=== PATIENT | female | born 1965 | race Two or more races ===

== ENCOUNTER → 2022-11-14 12:24 | Outpatient (BNVA) | payer OTHER, SELFPAY | PROVIDERS: PCP Nurse Practitioner Family; Visit Provider Physician Assistant Surgical | DX: Z13.89 Encounter for screening for other disorder (principal) ==

== ENCOUNTER → 2022-11-22 13:41 | Outpatient (BNVA) | payer OTHER, SELFPAY | PROVIDERS: PCP Nurse Practitioner Family; Visit Provider Physician Assistant | DX: Z01.818 Encounter for other preprocedural examination (principal); E66.01 Morbid (severe) obesity due to excess calories; E78.5 Hyperlipidemia, unspecified; K44.9 Diaphragmatic hernia without obstruction or gangrene; G43.909 Migraine, unspecified, not intractable, without status migrainosus; I10 Essential (primary) hypertension; R73.03 Prediabetes; J45.909 Unspecified asthma, uncomplicated; G47.33 Obstructive sleep apnea (adult) (pediatric); M79.7 Fibromyalgia; F32.A Depression, unspecified; Z99.89 Dependence on other enabling machines and devices; Z68.43 Body mass index [BMI] 50.0-59.9, adult | CPT/HCPCS: 99202 ==

== ENCOUNTER → 2022-11-26 12:50 | Outpatient (BNVA) | payer OTHER, SELFPAY | PROVIDERS: PCP Nurse Practitioner Family; Visit Provider Dietitian, Registered | DX: Z13.89 Encounter for screening for other disorder (principal) ==

== ENCOUNTER → 2022-12-03 12:52 | Outpatient (BNVA) | payer OTHER, SELFPAY | PROVIDERS: PCP Nurse Practitioner Family; Visit Provider Dietitian, Registered | DX: Z13.89 Encounter for screening for other disorder (principal) ==

== ENCOUNTER 2022-12-07 10:20 | Outpatient (REF) | payer OTHER, SELFPAY ==
--- NOTE | ~2022-12-07 | XR_ITS ---
EXAMINATION: XR CHEST CLINICAL INFORMATION: Morbid obesity COMPARISON: 07/11/2014 TECHNIQUE: 2 views of the chest were obtained. FINDINGS: No significant abnormality is noted involving the heart, lungs, mediastinum, bony thorax or soft tissues. XR/XR chest 2V IMPRESSION: Unremarkable examination.
--- NOTE | 2022-12-07 10:27 | ECG_ITS ---
Test Reason : e66.01 Blood Pressure : / mmHG Vent. Rate : 071 BPM Atrial Rate : 071 BPM P-R Int : 174 ms QRS Dur : 094 ms QT Int : 376 ms P-R-T Axes : 033 -01 -37 degrees QTc Int : 408 ms Normal sinus rhythm Inferior infarct , age undetermined Abnormal ECG When compared with ECG of 11-JUL-2014 14:11, No significant change was found Referred By: Krystyna Capellan Electronically Signed By:GISELL OLSON MD
[2022-12-07 10:52] LABS: MANUAL DIFF FLAG NO
[2022-12-07 11:50] LABS: Basophils Percent Auto 0.3 % (0-2); Eosinophils Percent Auto 0.1 % (0-4); Hematocrit 37.4 % (37.0-47.0); Hemoglobin 11.8 g/dl (12.0-16.0); Imm Gran Abs Auto 0.03 X10*3/uL (0.00-0.03); Imm Gran Pct Auto 0.3 % (0.0-0.4); Lymphocytes Absolute Auto 1.5 X10*3/uL (1.2-4.9); Lymphocytes Percent Auto 16.5 % (20-40); Mean Corpuscular HGB Conc 31.6 g/dl (31.0-35.0); Mean Corpuscular Hemoglobin 23.6 pg (27.0-33.0); Mean Corpuscular Volume 74.7 fL (80.0-98.0); Mean Platelet Volume 11.4 fL (9.4-12.3); Monocytes Absolute Auto 0.5 X10*3/uL (0.1-1.2); Monocytes Percent Auto 5.6 % (2-11); Neutrophils Absolute Auto 6.9 x10*3/uL (2.0-8.3); Neutrophils Percent Auto 77.2 % (45-73); Platelet Count 286 X10*3/uL (160-400); Red Blood Count 5.01 X10*6/uL (4.20-5.50); Red Cell Distribution Width 15.1 % (11.0-16.0); White Blood Count 8.9 X10*3/uL (4.8-10.8)
[2022-12-07 12:05] LABS: Alanine Aminotransferase 11 U/L (0-31); Albumin Level 4.3 g/dL (3.5-5.0); Alkaline Phosphatase 65 U/L (39-117); Anion Gap 16 (12-20); Aspartate Amino Transferase 16 U/L (5-31); Bilirubin Total 0.5 mg/dL (0.0-1.0); Blood Urea Nitrogen 14 mg/dL (9-16); Calcium 9.7 mg/dL (8.4-10.2); Carbon Dioxide 22 mmol/L (22-29); Chloride 104 mmol/L (96-108); Cholesterol 143 mg/dL; Estimated Glomerular Filt Rate > 60; Glucose Random 97 mg/dL (60-115); HDL Cholesterol 55 mg/dL; Iron 54 mcg/dL (30-160); LDL Cholesterol Calculated 73 mg/dl; Percent Iron Saturation 16 % (15-50); Sodium 138 mmol/L (135-145); Total Iron Binding Capacity 348 mcg/dL (228-428); Total Protein 7.8 g/dL (6.5-8.0); Triglycerides 76 mg/dL; Unsaturated Iron Binding 294 ug/dL
[2022-12-07 12:19] LABS: Estimated Average Glucose 123 mg/dL; Hemoglobin A1c % 5.9 %
[2022-12-07 12:42] LABS: Ferritin 76 ng/mL (10-250); Folate 17.5 ng/mL (> or = 4.0); Insulin 13 uU/mL (2-29); TSH reflex Free T4 0.44 uIU/mL (0.32-4.0); Vitamin B12 837 pg/mL (200-900); Vitamin D 25-OH Total 27.7 ng/mL (>30)
[2022-12-10 13:14] LABS: Calcium (PTHI) 9.9 mg/dL (8.6-10.4); PTHI 40 pg/mL (16-77)
[2022-12-11 21:14] LABS: Zinc 91 mcg/dL (60-130)
[2022-12-13 00:44] LABS: Vitamin A 30 mcg/dL (38-98)
[2022-12-14 16:42] LABS: Vitamin B1 <6 nmol/L (8-30)
== END 2022-12-07 10:21 | disposition home or self-care (01) ==
LOC: HO.XRAY 10:20
PROVIDERS: PCP Internal Medicine; Visit Provider Physician Assistant
DX: Z01.818 Encounter for other preprocedural examination (principal); E66.01 Morbid (severe) obesity due to excess calories; I10 Essential (primary) hypertension; K44.9 Diaphragmatic hernia without obstruction or gangrene; R73.03 Prediabetes
CPT/HCPCS: 36415; 71046; 80053; 80061; 82306; 82607; 82728; 82746; 83036; 83525; 83540; 83970; 84425; 84443; 84590; 84630; 85025; 86140; 93005

== ENCOUNTER → 2022-12-10 12:46 | Outpatient (BNVA) | payer OTHER, SELFPAY | PROVIDERS: PCP Internal Medicine; Visit Provider Dietitian, Registered | DX: Z13.89 Encounter for screening for other disorder (principal) ==

== ENCOUNTER 2022-12-13 14:52 | Outpatient (REF) | payer OTHER, SELFPAY ==
[2022-12-16 13:33] LABS: H Pylori Breath Test Positive (Negative)
== END 2022-12-13 14:53 | disposition home or self-care (01) ==
LOC: CF 14:52
PROVIDERS: PCP Internal Medicine; Visit Provider Physician Assistant
DX: Z01.818 Encounter for other preprocedural examination (principal); R94.31 Abnormal electrocardiogram [ECG] [EKG]; E66.01 Morbid (severe) obesity due to excess calories; R73.03 Prediabetes; I10 Essential (primary) hypertension; K44.9 Diaphragmatic hernia without obstruction or gangrene; Z71.3 Dietary counseling and surveillance
CPT/HCPCS: 36415; 83013; 99211; 99212

== ENCOUNTER → 2022-12-25 09:59 | Outpatient (REF) | payer OTHER, SELFPAY ==
--- NOTE | 2022-12-25 10:01 | CA_ITS ---
Transthoracic Echocardiogram Patient (Last, First, Middle): Loni Bahena, Gender: Female Date of : 1965 Age: 57 Procedure Date: 12/25/2022 Procedure Type: Transthoracic Echocardiogram Location: OP Height: 162.56 cm Weight: 136.08 kg BSA: 2.32 m2 Heart Rate: 63 bpm BP: 143 / 67 mmHg Supervisor Pre Wave: JOSE Referring MD: Krystyna Capellan PA-C Housekeeper: Yemi Grider MD Symptoms: R94.31 - Abnormal electrocardiogram [ECG] [EKG] Study Quality: Adequate contrast ECG Rhythm: Sinus Conclusions: - 1. Normal LV systolic function with impaired relaxation filling pattern 2. Limited visualization cardiac well with normal cardiac valvular Doppler 3. No gross pericardial effusion Findings Procedure Information Contrast agent, definity, is being given per protocol without apparent complications. Left Ventricle Normal left ventricular size, thickness, and systolic function. The visually estimated ejection fraction is between 65-70%. Spectral Doppler is indicative of an impaired relaxation filling pattern. E/E prime ratio is between 8 and 15 consistent with indeterminate filling pressures. Right Ventricle Normal right ventricular cavity size and systolic function. Atria The left atrium is normal in size. Interatrial shunt cannot be excluded. The right atrium was not well visualized. Aortic Valve The aortic valve was not well visualized. There is no aortic valve stenosis. There is no aortic valve regurgitation. Mitral Valve Likely normal mitral valve structure and function. There is trace mitral valve regurgitation. There is no mitral valve stenosis. Pulmonic Valve The pulmonic valve was not well visualized. Tricuspid Valve The tricuspid valve was not well visualized. Tricuspid regurgitation envelope is inadequate for calculation of right ventricular systolic pressure. Great Vessels The aorta was not well visualized. The pulmonary artery was not well visualized. Venous The inferior vena cava was not well visualized. Pericardium/Pleural There is no evidence of pericardial effusion. Prior Study Comparison No prior study available for comparison. Measurements 2D Linear Measurements IVSd: 0.95 0.6-0.9/0.6-1.0 cm LVIDd: 5.00 3.9-5.3/4.2-5.9 cm LVIDd Index: 2.16 2.4-3.2/2.2-3.1 cm/m2 LVIDs: 3.64 2.0-3.6 cm LVPWd: 1.06 0.7-1.1 cm LA Diam: 3.00 2.7-3.8/3.0-4.0 cm LAIDs Index: 1.29 1.5-2.3 cm/m2 LV Mass: 227.94 67-162/88-224 g LV Mass Index: 98.25 43-95/49-115 g/m2 LVOT Diam: 2.10 3.0+(-)1.3 cm 2D Systolic Function EF 4C: 68.40 >55% EF 2C: 69.50 >55% EF BiP: 68.30 >55% Mitral Valve MV Pk E: 1.06 MV PK A: 1.03 MV Decel Time: 260.00 E/A: 1.00 E'Lateral: 8.38 E'Medial: 8.16 E/E' Med: 13.00 E/E' Lat: 12.60 PHT: 76.00 MVA PHT: 2.89 Decel [place]: 4.07 Aortic Valve AoV Pk Ronaldo: 1.51 AoV Pk Grad: 9.00 CHRISTIE: 2.28 LVOT LVOT Pk Ronaldo: 1.05 LVOT Mn Ronaldo: 0.70 LVOT VTI: 0.21 LVOT Pk Grad: 4.00 LVOT Mn Grad: 2.00 LVOT Diam: 2.10 LVOT Area: 3.46 Diastolic Function MV Pk E: 1.06 MV Pk A: 1.03 E/A: 1.00 E'Medial: 8.16 E/E' Med: 13.00 E' Laterial: 8.38 E/E' Lat: 12.60 Right Ventricle TAPSE (mm): 20.90 TVS' Ronaldo: 16.40 Great Vessels Aorta Sinus of Valsalva: 3.00 2.0-3.5 cm Ao Asc: 2.90 2.1-3.4 cm Pulmonary Valve PV Pk Ronaldo: 1.15 Peak PV Grad: 5.00 Updated in Other Vendor System with Status of Final Yemi Grider MD electronically signed on 12/27/2022 8:44:53 AM with status of Final
== END ==
LOC: HO.CARD 09:59
PROVIDERS: PCP Internal Medicine; Visit Provider Physician Assistant
DX: Z01.818 Encounter for other preprocedural examination (principal); R06.02 Shortness of breath; R94.31 Abnormal electrocardiogram [ECG] [EKG]
CPT/HCPCS: 93306; Q9957

== ENCOUNTER → 2022-12-26 12:46 | Outpatient (BNVA) | payer OTHER, SELFPAY | PROVIDERS: PCP Internal Medicine; Visit Provider Dietitian, Registered | DX: E66.01 Morbid (severe) obesity due to excess calories (principal); Z68.42 Body mass index [BMI] 45.0-49.9, adult | CPT/HCPCS: 97802 ==

== ENCOUNTER → 2023-01-03 09:52 | Outpatient (BNVA) | payer OTHER, SELFPAY | PROVIDERS: PCP Internal Medicine; Visit Provider Physician Assistant | DX: E66.01 Morbid (severe) obesity due to excess calories (principal); R49.8 Other voice and resonance disorders; Z68.42 Body mass index [BMI] 45.0-49.9, adult | CPT/HCPCS: 99212 ==

== ENCOUNTER 2023-01-16 08:37 | Outpatient (REF) | payer OTHER, SELFPAY ==
--- NOTE | ~2023-01-16 | US_ITS ---
EXAMINATION: US COMPLETE ABDOMEN WITH LIVER ELASTOGRAPHY CLINICAL INFORMATION: Morbid obesity. COMPARISON: None available. TECHNIQUE: Real-time imaging of the abdominal viscera. Noninvasive ultrasound liver fibrosis assessment is performed using Teo ElastPQ point quantification shear wave elastography (2D-SWE) with a C5-2 MHz transducer. Multiple elastography samples are obtained. FINDINGS: PANCREAS: Limited. The visualized pancreatic head and body are normal in appearance. The remainder of the pancreas is obscured from visualization by the overlying bowel gas. ABDOMINAL AORTA: The visualized proximal and middle segments are normal in caliber. Imaging of the distal segment is limited due to overlapping bowel gas. INFERIOR VENA CAVA: Visualized portions are normal. LIVER: The liver demonstrates normal size, contour and increased echogenicity. No focal lesion or intrahepatic biliary duct dilatation. The right lobe measures 15.1 cm in length. The left lobe measures 12.1 cm in length. Portal flow is towards the liver (hepatopetal). Shear wave liver elastography median stiffness is 1.25 m/s (reference: normal median stiffness is 1.3 m/s or less). IQR/median stiffness to assess sampling precision is 0.13 (reference: good quality data set is IQR/median stiffness of 0.15 or less). GALLBLADDER: Surgically absent. COMMON BILE DUCT: Normal in caliber measuring 0.7 cm in diameter. RIGHT KIDNEY: There is a hypertrophic column of Zane. No hydronephrosis. No renal calculi or focal parenchymal lesions. The kidney measures 10.9 cm in maximum dimension. LEFT KIDNEY: Normal. No hydronephrosis. No renal calculi or focal parenchymal lesions. The kidney measures 11.5 cm in maximum dimension. SPLEEN: Normal. The spleen measures 9.4 cm in maximum dimension. FREE FLUID: None. US/US abdomen comp w elastography IMPRESSION: 1. There is generalized increase in hepatic echotexture, consistent with fatty infiltration or hepatocellular disease. Please correlate clinically. No focal hepatic mass or intrahepatic biliary dilatation is seen. 2. Liver elastography: Measurements are consistent with a high probability of normal liver stiffness. 3. Imaging, in particular of the pancreas and abdominal aorta, is technically limited. REFERENCE: Society of Radiologists in Ultrasound Liver Stiffness Thresholds (2020): LIVER STIFFNESS THRESHOLDS: *Liver Stiffness equal or less than 1.3 m/s: High probability of being normal. *Liver Stiffness less than 1.7 m/s: In the absence of other known clinical signs, rules out compensated advanced chronic liver disease. *Liver Stiffness 1.7-2.1 m/s: Suggestive of compensated advanced chronic liver disease but need further test for confirmation. *Liver Stiffness over 2.1 m/s: Rules in compensated advanced chronic liver disease. *Liver Stiffness over 2.4 m/s: Suggestive of clinically significant portal hypertension. QUALITY OF DATA SET: *IQR/Median value equal or less than 0.15 implies a quality data set. *IQR/Median value over 0.15 implies a poor quality data set. SIGNIFICANT CHANGE FROM PRIOR EXAM: Significant change if liver stiffness measurement is 10% or greater from prior exam. OTHER CONSIDERATIONS: The stage of liver fibrosis may be overestimated in the setting of acute hepatitis, liver inflammation, elevated liver function tests, hepatic vascular congestion, obstructive cholestasis, non-fasting state, and infiltrative diseases such as amyloidosis and lymphoma. In some patients with NAFLD, the liver stiffness thresholds for compensated advanced chronic liver disease may be lower. In causes other than viral hepatitis and NAFLD, liver stiffness thresholds are not well established.
--- NOTE | ~2023-01-16 | FL_ITS ---
EXAMINATION: XR FLUOROSCOPY UPPER GI WITH AIR CLINICAL INFORMATION: Morbid obesity. COMPARISON: None available. TECHNIQUE: Upper GI examination including use of thin and thick barium and half-inch diameter barium tablet. FINDINGS: There is normal apposition of the focal cords while saying E. There is normal elevation of the soft palate saying candy. Patient swallowed half-inch diameter barium tablet without difficulty. Patient was unable to retain gas from the effervescent crystals. No esophageal stricture was identified. No mucosal abnormality is seen. There is normal motility present. There is a small sliding hiatal hernia present. There was mild gastroesophageal reflux elicited with water siphon test within the distal third of the esophagus which cleared rapidly. The stomach demonstrates normal distensibility. No abnormal mass or ulceration identified. There was no delay in gastric emptying. The duodenal bulb and sweep appeared unremarkable. FLUOROSCOPY TIME: 1.8 minutes. NUMBER OF IMAGES: 25 images. 27.824 Gy-cm2 (velazco-centimeter squared). FL/FL upper GI w air IMPRESSION: Mild gastroesophageal reflux. Small sliding hiatal hernia.
== END 2023-01-16 08:38 | disposition home or self-care (01) ==
LOC: HO.US 08:37
PROVIDERS: PCP Internal Medicine; Visit Provider Physician Assistant
DX: Z01.818 Encounter for other preprocedural examination (principal); E66.01 Morbid (severe) obesity due to excess calories; I10 Essential (primary) hypertension; K44.9 Diaphragmatic hernia without obstruction or gangrene; R73.03 Prediabetes
CPT/HCPCS: 74246; 76705; 76981

== ENCOUNTER → 2023-01-21 09:39 | Outpatient (REF) | payer OTHER, SELFPAY ==
--- NOTE | ~2023-01-21 | NM_ITS ---
Myocardial perfusion study Indication: Abnormal EKG to evaluate for myocardial ischemia Technique: The patient was brought in for a Lexiscan perfusion study on 01/21/2023. Patient performed low-level exercise and was injected 0.4 mg of Lexiscan intravenously. Within a minute of injection, 30 mCi of sestamibi was given intravenously. Images were obtained using the SPECT gamma camera interlaced with the gating device. Images were obtained in supine position. Resting perfusion study was performed on 01/23/2023. Patient was administered 30 mCi of sestamibi intravenously at rest. Images were then obtained in supine position. Images obtained with and without CT attenuation. Total DLP 163 mGy-cm. Images were processed with the software and compared side to side in short axis, horizontal long axis and vertical long axis views. Findings: The stress perfusion study showed non attenuated images show normal uptake of radiotracer in all segments of LV myocardium. Attenuation corrected images show mildly reduced uptake in the apex of the LV myocardium. The gated study shows normal LV systolic function with calculated LVEF of 65%. LV cavity is normal size. The gated study shows normal systolic wall thickening and contraction of segments. Resting study shows both attenuated as well as non attenuated corrected images show mildly to moderately reduced myocardium.. Gating at rest reveals normal systolic wall motion with ejection fraction at 67%. The findings are consistent with likely normal myocardial perfusion. NM/NM cardiolite stress test Impression: 1. Myocardial perfusion imaging study shows normal myocardial perfusion 2. Gated LVEF is 85% 3. Transient ischemic dilatation not present EKG is nondiagnostic for ischemia
--- NOTE | 2023-01-21 09:42 | CA_ITS ---
Acquisition Time: 2023-01-21 10:50:46 Total Exercise Time: 00:02:00 Test Indications: SOB, ABN EKG Medications: SEE H Protocol: LEXISCAN Max HR: 100 BPM 60% of Pred: 165 BPM Max BP: 122/062 mmHG Max Work Load: 1.0 METS Pharmacological stress test with Lexiscan injection, while sitting and kicking her legs, without anginal symptoms, without arrythmia, with normotensive response to injection, with nondiagnostic EKG for ischemia. In recovery she reported head pressure and was treated with Aminophylline 75mg IVP to reverse Lexiscan with improvement in symptom. Nuclear images pending. Test reviewed with Dr Casey Referred By: Krystyna Capellan Overread By: CLARISSA SWEET
== END ==
LOC: HO.CARD 09:39
PROVIDERS: Visit Provider Physician Assistant
DX: Z01.818 Encounter for other preprocedural examination (principal); R06.02 Shortness of breath; E66.01 Morbid (severe) obesity due to excess calories; E78.5 Hyperlipidemia, unspecified; G47.33 Obstructive sleep apnea (adult) (pediatric); I10 Essential (primary) hypertension; J45.909 Unspecified asthma, uncomplicated; R94.31 Abnormal electrocardiogram [ECG] [EKG]; Z99.89 Dependence on other enabling machines and devices
CPT/HCPCS: 78452; 93017; 97803; A9500; J0280; J2785

== ENCOUNTER → 2023-02-19 10:45 | Outpatient (BNVA) | payer OTHER, SELFPAY | PROVIDERS: PCP Internal Medicine; Visit Provider Dietitian, Registered | DX: E66.01 Morbid (severe) obesity due to excess calories (principal); Z90.49 Acquired absence of other specified parts of digestive tract; Z71.3 Dietary counseling and surveillance | CPT/HCPCS: 97803 ==

== ENCOUNTER 2023-02-27 09:42 | Outpatient (REF) | payer OTHER, SELFPAY ==
[2023-03-01 11:18] LABS: H Pylori Breath Test Positive (Negative)
== END 2023-02-27 09:43 | disposition home or self-care (01) ==
LOC: HO.LNP 09:42
PROVIDERS: Visit Provider Physician Assistant
DX: Z11.0 Encounter for screening for intestinal infectious diseases (principal)
CPT/HCPCS: 83013

== ENCOUNTER → 2023-02-27 15:46 | Outpatient (BNVA) | payer OTHER, SELFPAY | PROVIDERS: PCP Internal Medicine; Visit Provider Physician Assistant | DX: Z11.0 Encounter for screening for intestinal infectious diseases (principal); E66.01 Morbid (severe) obesity due to excess calories; A04.8 Other specified bacterial intestinal infections; G47.33 Obstructive sleep apnea (adult) (pediatric); I10 Essential (primary) hypertension; K44.9 Diaphragmatic hernia without obstruction or gangrene; E78.5 Hyperlipidemia, unspecified; Z68.42 Body mass index [BMI] 45.0-49.9, adult | CPT/HCPCS: 99212 ==

== ENCOUNTER → 2023-03-14 10:04 | Outpatient (BNVA) | payer OTHER, SELFPAY | PROVIDERS: PCP Internal Medicine; Visit Provider Dietitian, Registered | DX: E66.01 Morbid (severe) obesity due to excess calories (principal); Z68.42 Body mass index [BMI] 45.0-49.9, adult | CPT/HCPCS: 97803 ==

== ENCOUNTER → 2023-04-12 14:08 | Outpatient (BNVA) | payer OTHER, SELFPAY | PROVIDERS: PCP Internal Medicine; Visit Provider Physician Assistant | DX: Z11.0 Encounter for screening for intestinal infectious diseases (principal); E66.01 Morbid (severe) obesity due to excess calories; Z68.42 Body mass index [BMI] 45.0-49.9, adult | CPT/HCPCS: 99211; 99212 ==

== ENCOUNTER → 2023-04-17 09:58 | Outpatient (BNVA) | payer OTHER, SELFPAY | PROVIDERS: PCP Internal Medicine; Visit Provider Dietitian, Registered | DX: E66.9 Obesity, unspecified (principal); Z71.3 Dietary counseling and surveillance | CPT/HCPCS: 97803 ==

== ENCOUNTER 2023-04-29 13:00 | Outpatient (RCR) | payer OTHER, SELFPAY ==
[2023-03-12 13:08] VITALS: BP 170/80; PULSE 66
[2023-04-13 12:38] LABS: H Pylori Breath Test Positive (Negative)
--- NOTE | 2023-05-28 07:32 | MHC.PT.DC ---
[facility] [place] Office [place] Office [place] Office [address] Sergio Vick [address] [phone] F: [phone] F: [phone] F: [phone] F: [phone] Physical Therapy Discharge Report Diagnosis: PHYSICAL THERAPY FOR WEIGHT LOSS Date of Surgery: Date of Evaluation: 03/12/23 Date of Discharge: 05/28/23 Treatments to Date: 9 Cancellations to Date: 1 No Shows to Date: 3 Discharge Status: Patient Elected to Stop Discharge Summary: Pt NO SHOWED FOR LAST SCHEDULED APPOINTMENT, SHE HAD BEEN PROGRESSING WELL BUT CONT KNEE PAIN WAS LIMITING PROGRESSION IN PT, ENCOURAGED Pt TO CONTACT MD FOR APPOINTMENT Electronically signed by: ANDRES SIDDIQUI PT DPT Please sign and return to therapist. Thank you for your referral.
== END 2023-05-28 07:32 | disposition home or self-care (01) ==
LOC: HO.PT 13:00
PROVIDERS: PCP Internal Medicine; Visit Provider Physician Assistant
DX: R53.81 Other malaise (principal)
CPT/HCPCS: 36415; 83013; 97110; 97162; 97535

== ENCOUNTER 2023-05-07 15:08 | Outpatient (AMB) | payer OTHER, SELFPAY ==
--- NOTE | 2023-05-07 13:31 | MHC.OFFVISWM ---
Intake VS Expanded 05/07/23 15:17 Height 5 ft 4 in Weight 270 lb 6.4 oz BMI 46.4 BP 157/76 H Blood Pressure Location Rt brachial Blood Pressure Position Sitting Pulse 76 Pulse Source Pulse Oximeter Temp 97.0 F Temperature Source Temporal Artery Scan Pulse Oximetry 95 Oxygen Delivery Method Room Air Body Fat 117.2 Body Fat Percentage 43.4 Free Fat Mass 153.0 Muscle Mass 145.2 Visceral Mass 15.0 Water Mass 108.6 BMR 2,137 Intake Visit Reasons: (OV) F/U SWL Allergies droperidol [DROPERIDOL] Allergy (Unknown, Verified 05/07/23 15:15) UNKNOWN duloxetine [From CYMBALTA] Allergy (Unknown, Verified 05/07/23 15:15) UNKNOWN HPI HPI Comments History of Present Illness Details SWL follow up, [employer] weight of 305.8 lbs, TBWL of 35.8 lbs or 11.7%. Pt cried because she is so happy! Pre operative work up completed except for refractory h pylori. She was positive agin on 04/12 and was given quadruple therapy on 04/17 - she has not been able to start treatment yet due to pharmacy not having all of her meds yet. Referred to GI by her PCP due to BRBPR. Meal plan: 12 pm - shake or bar 3pm - bar 6pm - salad and protien 8pm- fruit Exercise - having alot of leg pain lately. Finished PT now. Use bike and treadmill for 3 minutes! PFSH Surgical History Hx of cholecystectomy Hx of hernia repair Hx of hysterectomy Family History Mother Hypertension Arthritis Father No problems noted. Son No problems noted. Social History Alcohol intake: never Patient Tobacco Use Status: Never used Tobacco Physical Exam Vital Signs: Last Vital Signs Temp 97.0 F 05/07/23 15:17 Pulse 76 05/07/23 15:17 BP 157/76 H 05/07/23 15:17 Pulse Ox 95 05/07/23 15:17 Oxygen Delivery Method Room Air 05/07/23 15:17 BMI result Body Mass Index 46.4 Assessment & Plan Assessment & Plan (1) Morbid obesity: Code(s): E66.01 - Morbid (severe) obesity due to excess calories Plan: Pt has now completed all pre operative work up and TBWL of 11.7%, but needs to treat h pylori with quadruple therapy. Once we know when all of ehr meds will be available for her we can time her repeat test. In the mean time she will have a surgical consultation with Dr Webb in 2 weeks and then me 2 weeks later. Will make sure to have 2 shakes and dinner per day, with one bar. Will change exercise to 4d/ week - combination of cardio machines for at least 30 minutes in total, will then do her UE mahcines. Patient is morbidly obese and is not considered stable at this time. I spent 30 minutes in total with patient reviewing/updating records, examining the patient and counseling the patient on weight management as detailed above. (2) Hyperlipidemia: Code(s): E78.5 - Hyperlipidemia, unspecified (3) Hiatal hernia: Code(s): K44.9 - Diaphragmatic hernia without obstruction or gangrene (4) HTN (hypertension), benign: Code(s): I10 - Essential (primary) hypertension (5) Pre-diabetes: Code(s): R73.03 - Prediabetes (6) YOJANA on CPAP: Code(s): G47.33 - Obstructive sleep apnea (adult) (pediatric); Z99.89 - Dependence on other enabling machines and devices (7) H. pylori infection: Code(s): A04.8 - Other specified bacterial intestinal infections Orders: Orders H Pylori Breath Test 05/16/23 A04.8 - Other specified bacterial intestinal infections, Z01.818 - Encounter for other preprocedural examination Coding Level of Care Code Est Pt Level 4 (66818) Diagnoses Morbid obesity E66.01 Hyperlipidemia E78.5 Hiatal hernia K44.9 HTN (hypertension), benign I10 Pre-diabetes R73.03 YOJANA on CPAP G47.33; Z99.89 H. pylori infection A04.8
[2023-05-07 15:17] VITALS: BP 157/76; PULSE 76; TEMP 36.1; O2SAT 95; BMI 46.4
== END 2023-05-07 15:48 | disposition home or self-care (01) ==
PROVIDERS: PCP Internal Medicine; Visit Provider Physician Assistant
DX: E66.01 Morbid (severe) obesity due to excess calories (principal); Z68.42 Body mass index [BMI] 45.0-49.9, adult; E78.5 Hyperlipidemia, unspecified; K44.9 Diaphragmatic hernia without obstruction or gangrene; I10 Essential (primary) hypertension; R73.03 Prediabetes; G47.33 Obstructive sleep apnea (adult) (pediatric); Z99.89 Dependence on other enabling machines and devices; A04.8 Other specified bacterial intestinal infections
CPT/HCPCS: 99214

== ENCOUNTER → 2023-05-07 15:08 | Outpatient (BNVA) | payer OTHER, SELFPAY | PROVIDERS: PCP Internal Medicine; Visit Provider Physician Assistant | DX: E66.01 Morbid (severe) obesity due to excess calories (principal); Z68.42 Body mass index [BMI] 45.0-49.9, adult; A04.8 Other specified bacterial intestinal infections; E78.5 Hyperlipidemia, unspecified; K44.9 Diaphragmatic hernia without obstruction or gangrene; I10 Essential (primary) hypertension; R73.03 Prediabetes; G47.33 Obstructive sleep apnea (adult) (pediatric); Z99.89 Dependence on other enabling machines and devices | CPT/HCPCS: 99212 ==

== ENCOUNTER 2023-06-03 12:31 | Outpatient (AMB) | payer OTHER, SELFPAY ==
--- NOTE | 2023-06-03 12:50 | A.OFFVIS_ITS ---
Intake Vital Signs 06/03/23 12:57 Height 5 ft 4 in Weight 273 lb 5.971 oz BMI 46.9 BP 151/66 H Blood Pressure Location Lt radial Position Sitting Pulse 63 Intake Visit Reasons: Other specified bacterial intestinal infections Intake Note: Loni presents in the office as a new patient for SIBO CC: She states that she is having constipation for 3 days. She states that there is not blood at the moment but before she used to have a lot. She noticed that her Bowel movements are on the darker side. Information Support Project Manager Required: Yes Information Support Project Manager Name: [id number] Alejandro Allergies diclofenac Allergy (Mild, Verified 06/03/23 13:02) Unknown droperidol [DROPERIDOL] Allergy (Unknown, Verified 06/03/23 12:58) UNKNOWN duloxetine [From CYMBALTA] Allergy (Unknown, Verified 06/03/23 12:58) UNKNOWN Medication List - Last Reconciled 06/03/23 by Stephanie Cotto MD albuterol (refill) 90 mcg/actuation mcg inhalation albuterol sulfate 90 mcg/actuation (Ventolin HFA) 2 puffs inhalation QID PRN amitriptyline 25 mg PO BEDTIME amlodipine 2.5 mg PO BEDTIME ascorbic acid (vitamin C) PO aspirin 81 mg PO DAILY cholecalciferol (vitamin D3) 50 mcg PO DAILY citalopram 10 mg PO DAILY dicyclomine 10 mg PO QID fluticasone propionate 110 mcg/actuation (Flovent HFA) 1 puff inhalation BID iron,carbonyl-vitamin C 65 mg iron- 125 mg (Vitron-C) 1 tab PO BEDTIME lisinopril-hydrochlorothiazide 20-12.5 mg 1 tab PO DAILY montelukast 10 mg PO DAILY omeprazole 40 mg PO DAILY 2 weeks sodium chloride 0.65% (Saline Mist) 1 spray intranasal thiamine HCl (vitamin B1) 100 mg PO DAILY tolterodine ER 2 mg PO DAILY topiramate 50 mg PO BID trospium ER 0 mg PO HPI HPI Comments History of Present Illness Details This is a 58y.o F with PMH of obesity, YOJANA, depression, who was referred from Bariatric surgery office for persistent H Pylori infection. Hx was obtained wiht the help of rn case management. Pt reports no abd pain, N,V. Was noted to be H Pylori positive earlier this year and treated with triple therapy however that did not eradicate the infection and TYSON was positive on 02/27. She was then prescribed quad therapy which she could not take as prescribed as not all the meds were available at the pharmacy. Currently reports having 2 of the meds at home but is unsure which ones she has. [facility] Surgical History History of esophagogastroduodenoscopy (EGD) Hx of cholecystectomy Hx of colonoscopy Hx of hernia repair Hx of hysterectomy Family History Mother Hypertension Arthritis Father No problems noted. Son No problems noted. Social History Alcohol intake: never Patient Tobacco Use Status: Never used Tobacco Review of Systems Const All systems reviewed & are unremarkable except as noted in HPI and below Physical Exam Vital Signs: Last Vital Signs Pulse 63 06/03/23 12:57 BP 151/66 H 06/03/23 12:57 BMI result Body Mass Index 46.9 Gen appear: NAD HEENT: nonicteric, no cervical lymphadenopathy Chest: CTA CVS: Regular S1/S2 Abd: soft, nontender, nondistended, bowel sounds + Ext: no peripheral edema Neuro: A/Ox3, noted to move all extremities spontaneously Psych: interacting appropriately Assessment & Plan Assessment & Plan (1) H. pylori infection: Code(s): A04.8 - Other specified bacterial intestinal infections Plan Reviewed with the pt that most common reason for failure to treat H Pylori is nonadherence to Rx. She was counseled extensively on taking the meds as pres cribed for the duration prescribed. She was also advised to bring all the pills at the next visit to see which meds she already has so that the remaining 2 of the quad therapy can be prescribed; as well as to check for any drug-drug interaction. Follow up in 2 weeks - pt to bring pill bottles. Medications: Discontinued metronidazole Discontinued Reason: Doctor's Order 500 mg PO TID Coding Level of Care Code New Pt Level 4 (72503) Diagnoses H. pylori infection A04.8
[2023-06-03 12:57] VITALS: BP 151/66; PULSE 63; BMI 46.9
== END 2023-06-03 13:30 | disposition home or self-care (01) ==
PROVIDERS: PCP Internal Medicine; Visit Provider Internal Medicine
DX: A04.8 Other specified bacterial intestinal infections (principal)
CPT/HCPCS: 99204

== ENCOUNTER → 2023-06-03 12:31 | Outpatient (BNVA) | payer OTHER, SELFPAY | PROVIDERS: PCP Internal Medicine; Visit Provider Internal Medicine | DX: A04.8 Other specified bacterial intestinal infections (principal); E66.01 Morbid (severe) obesity due to excess calories; Z68.42 Body mass index [BMI] 45.0-49.9, adult; Z90.49 Acquired absence of other specified parts of digestive tract; Z79.82 Long term (current) use of aspirin; Z79.899 Other long term (current) drug therapy | CPT/HCPCS: 99202 ==

== ENCOUNTER 2023-06-10 15:27 | Outpatient (AMB) | payer OTHER, SELFPAY ==
--- NOTE | 2023-06-10 15:32 | MHC.OFFVISWM ---
Intake VS Expanded 06/10/23 15:35 Height 5 ft 4 in Weight 272 lb BMI 46.7 BP 173/76 H Blood Pressure Location Rt brachial Blood Pressure Position Sitting Pulse 70 Pulse Source Pulse Oximeter Temp 97.6 F Temperature Source Temporal Artery Scan Pulse Oximetry 98 Oxygen Delivery Method Room Air Body Fat 112.0 Body Fat Percentage 41.2 Free Fat Mass 159.8 Muscle Mass 151.8 Visceral Mass 15.0 Water Mass 113.6 BMR 2,221 Intake Visit Reasons: (OV) F/U SWL Allergies diclofenac Allergy (Mild, Verified 06/10/23 15:35) Unknown droperidol [DROPERIDOL] Allergy (Unknown, Verified 06/10/23 15:35) UNKNOWN duloxetine [From CYMBALTA] Allergy (Unknown, Verified 06/10/23 15:35) UNKNOWN Medication List - Last Reconciled 06/10/23 by Krystyna Capellan PA-C albuterol (refill) 90 mcg/actuation mcg inhalation albuterol sulfate 90 mcg/actuation (Ventolin HFA) 2 puffs inhalation QID PRN amitriptyline 25 mg PO BEDTIME amlodipine 2.5 mg PO BEDTIME ascorbic acid (vitamin C) PO aspirin 81 mg PO DAILY cholecalciferol (vitamin D3) 50 mcg PO DAILY citalopram 10 mg PO DAILY dicyclomine 10 mg PO QID fluticasone propionate 110 mcg/actuation (Flovent HFA) 1 puff inhalation BID iron,carbonyl-vitamin C 65 mg iron- 125 mg (Vitron-C) 1 tab PO BEDTIME lisinopril-hydrochlorothiazide 20-12.5 mg 1 tab PO DAILY montelukast 10 mg PO DAILY omeprazole 40 mg PO DAILY 2 weeks sodium chloride 0.65% (Saline Mist) 1 spray intranasal thiamine HCl (vitamin B1) 100 mg PO DAILY tolterodine ER 2 mg PO DAILY topiramate 50 mg PO BID trospium ER 0 mg PO HPI HPI Comments History of Present Illness Details SWL follow up. Pt has now completed all pre operative work up and TBWL of 11%, but needs to treat h pylori. She had EGD at [facility] about 2 years with + h pylori and treated then. She had positive test here and was treated with triple therapy and retested positive. She was treated with quadruple therapy on 04/17 but the pharmacy gave her the meds as follows: 04/17 - metronidazole and tetracycline 05/02 -Bismuth 05/07 - omeprazole Pt had initial surgical consultation with Dr Andrea and was referred to GI at [facility] [place] for h pylori treatment. Pt has follow up scheduled for later this month with him. She saw Dr Cotto for persistent h pylori infection on 06/03 - patient was asked to bring in the bottles of recent meds - but she no longer has them. She was rescheduled with Dr Cotto for 06/17 for clarification of appropriate treatment. Patient states she has increased LUQ pain, increased tiredness and nausea with change in voice and easily bruisability over last month or two. Thyroid testing by PCP was normal per patient and she is worried that something is wrong . Meal plan; tea 9 am - bar 12pm - protein shake 3pm - bar 6pm - vegetable, salmon or chicken and fruit 8pm- shake Has stopped exercising because she doesn't feel well. [facility] Surgical History History of esophagogastroduodenoscopy (EGD) Hx of cholecystectomy Hx of colonoscopy Hx of hernia repair Hx of hysterectomy Family History Mother Hypertension Arthritis Father No problems noted. Son No problems noted. Social History Alcohol intake: never Patient Tobacco Use Status: Never used Tobacco Assessment & Plan Assessment & Plan (1) Morbid obesity: Code(s): E66.01 - Morbid (severe) obesity due to excess calories Plan: Pre op work up completed with 11% TBWL. She has a complicated history of recurrent/chronic h pylori infection. I have discussed the case wtih both Khalif Andrea and Keiko and am waiting for a treatment plan devised by them. She will follow up with Dr Cotto on 06/17 as of now. I will contact her once there is a plan in place for subsequent appointments. Patient is morbidly obese and is not considered stable at this time. I spent 20 minutes in total with patient reviewing/updating records, examining the patient and counseling the patient on weight management as detailed above. (2) H. pylori infection: Code(s): A04.8 - Other specified bacterial intestinal infections Coding Level of Care Code Est Pt Level 4 (70053) Diagnoses Morbid obesity E66.01 H. pylori infection A04.8
[2023-06-10 15:35] VITALS: BP 173/76; PULSE 70; TEMP 36.4; O2SAT 98; BMI 46.7
== END 2023-06-10 17:17 | disposition home or self-care (01) ==
PROVIDERS: PCP Internal Medicine; Visit Provider Physician Assistant
DX: E66.01 Morbid (severe) obesity due to excess calories (principal); Z68.42 Body mass index [BMI] 45.0-49.9, adult; A04.8 Other specified bacterial intestinal infections
CPT/HCPCS: 99214

== ENCOUNTER → 2023-06-10 15:27 | Outpatient (BNVA) | payer OTHER, SELFPAY | PROVIDERS: PCP Internal Medicine; Visit Provider Physician Assistant | DX: E66.01 Morbid (severe) obesity due to excess calories (principal); A04.8 Other specified bacterial intestinal infections; R10.12 Left upper quadrant pain; R11.0 Nausea; Z68.42 Body mass index [BMI] 45.0-49.9, adult | CPT/HCPCS: 99212 ==

== ENCOUNTER 2023-06-19 14:01 | Outpatient (AMB) | payer OTHER, SELFPAY ==
--- NOTE | 2023-06-19 14:06 | MHC.OFFVISWM ---
Intake VS Expanded 06/19/23 14:23 Height 5 ft 4 in Weight 270 lb BMI 46.3 BP 160/70 H Blood Pressure Location Rt brachial Blood Pressure Position Sitting Pulse 80 Pulse Source Pulse Oximeter Temp 97.5 F Temperature Source Tympanic Pulse Oximetry 95 Oxygen Delivery Method Room Air Body Fat 115.6 Body Fat Percentage 42.8 Free Fat Mass 154.4 Muscle Mass 146.6 Visceral Mass 15.0 Water Mass 109.6 BMR 2,152 Intake Visit Reasons: (OV) F/U SWL (JOHN) Pump Operator Required: Yes Pump Operator Language: Abalone Sheller Name: Jina LYN Information Interpreted: non-clinical & clinical Wood Caulker: Wood Caulker offered & declined Accompanied by: SERVICE OPERATOR Allergies diclofenac Allergy (Mild, Verified 06/19/23 14:13) Unknown droperidol [DROPERIDOL] Allergy (Unknown, Verified 06/19/23 14:13) UNKNOWN duloxetine [From CYMBALTA] Allergy (Unknown, Verified 06/19/23 14:13) UNKNOWN Medication List - Last Reconciled 06/19/23 by Vasquez Andrea MD albuterol (refill) 90 mcg/actuation mcg inhalation albuterol sulfate 90 mcg/actuation (Ventolin HFA) 2 puffs inhalation QID PRN amitriptyline 25 mg PO BEDTIME amlodipine 2.5 mg PO BEDTIME ascorbic acid (vitamin C) PO aspirin 81 mg PO DAILY cholecalciferol (vitamin D3) 50 mcg PO DAILY citalopram 10 mg PO DAILY dicyclomine 10 mg PO QID fluticasone propionate 110 mcg/actuation (Flovent HFA) 1 puff inhalation BID iron,carbonyl-vitamin C 65 mg iron- 125 mg (Vitron-C) 1 tab PO BEDTIME lisinopril-hydrochlorothiazide 20-12.5 mg 1 tab PO DAILY montelukast 10 mg PO DAILY sodium chloride 0.65% (Saline Mist) 1 spray intranasal thiamine HCl (vitamin B1) 100 mg PO DAILY tolterodine ER 2 mg PO DAILY topiramate 50 mg PO BID trospium ER 0 mg PO HPI HPI Comments History of Present Illness Details The patient is a 58-year-old Greek-speaking only woman who is accompanied by her SERVICE OPERATOR today. She reports a lifelong crane with obesity and has failed medical management and intervention. She is interested in sleeve gastrectomy but notes a recurring, refractory Helicobacter pylori infection and is being seen by Dr. Cotto in our Gastroenterology Department. Patient is currently off of her PPI and reports both voice changes/hoarseness that is worsened over the past few weeks to months as well as left upper quadrant and left flank pain. She notes that an upper endoscopy was done at [facility] in the past year and she was noted to have both an ulcer and H pylori infection. Patient is congratulated on her interval weight loss and entered the surgical weight loss program at 305.8 lb/BMI 52.4 and has lost weight to 270.0 lb/BMI 46.4 at today's visit. She is congratulated on the interval weight loss and still notes difficulty regarding her left knee arthritis which is [id number] according to the patient and she is using exercise videos that allow her to limit impact on this knee. The patient has obesity related comorbidities include obstructive sleep apnea on CPAP, prediabetes, hyperlipidemia, hypertension and her left knee arthritis is worsened by her obesity. She reports she is tolerating the current meal plan well with no difficulties and has a follow-up with Tammie later this month. She also states she has a follow-up with gastroenterology. The patient also states she had an up upper endoscopy at [facility] that confirmed a gastric ulcer earlier this year and that she had an H pylori infection; it does not sound like any follow-up endoscopy to assess the ulcer was ever arranged. Today, the patient disclose that her father from gastric cancer that she is told is related to a bacterial infection at in his stomach; she also notes that a maternal cousin from gastric cancer related to a stomach infection by a bacteria Patient reports a history of blood transfusion of past secondary to vaginal bleeding that required partial hysterectomy. She also notes to umbilical hernia repair, the last being laparoscopic done at [facility] and notes that she is status post cholecystectomy. [facility] Surgical History History of esophagogastroduodenoscopy (EGD) Hx of cholecystectomy Hx of colonoscopy Hx of hernia repair Hx of hysterectomy Family History Mother Hypertension Arthritis Father No problems noted. Son No problems noted. Social History Alcohol intake: never Patient Tobacco Use Status: Never used Tobacco Review of Systems Const All systems reviewed & are unremarkable except as noted in HPI and below Reports as per HPI Physical Exam Vital Signs: Last Vital Signs Temp 97.5 F 06/19/23 14:23 Pulse 80 06/19/23 14:23 BP 160/70 H 06/19/23 14:23 Pulse Ox 95 06/19/23 14:23 Oxygen Delivery Method Room Air 06/19/23 14:23 BMI result Body Mass Index 46.3 The patient is non-toxic & in good spirits NC/AT, PERRLA, EOMI Mood, affect & judgment all appear appropriate Sclera anicteric conjunctiva pink and moist Oropharynx is clear with no aphthous ulcers, Mallampati class 4, mucous membranes moist Neck is supple with no masses, adenopathy or bruits Thyroid is nontender and free of dominant masses Heart is regular, normal S1-S2 no rubs or murmurs Lungs are clear and equal anteriorly with no audible wheezing, rubs or dullness to percussion Abdomen is obese with no demonstrable hernias. Well-healed abdominal incisions are noted about the umbilicus and infraumbilical midline. She reports some left upper quadrant discomfort. No HSM, rebound, rigidity, guarding, masses or bruits are present. Rectal exam is deferred Skin has good turgor and is free of rashes Extremities free of cyanosis clubbing edema Results Reviewed Results Reviewed: Labs 12/07/2022 Mild anemia with a hemoglobin of 11.8, platelet count 286, white blood cell count 8.9 Vitamins a, B 1 in D were low at replaced BUN 14, creatinine 0.86, electrolytes within normal parameters Hemoglobin A1c 5.9 Iron and LFTs within normal parameters H pylori positive Assessment & Plan Assessment & Plan (1) FH: gastric cancer: Code(s): Z80.0 - Family history of malignant neoplasm of digestive organs (2) H. pylori infection: Code(s): A04.8 - Other specified bacterial intestinal infections (3) Morbid obesity: Code(s): E66.01 - Morbid (severe) obesity due to excess calories (4) Hiatal hernia: Code(s): K44.9 - Diaphragmatic hernia without obstruction or gangrene (5) Hyperlipidemia: Code(s): E78.5 - Hyperlipidemia, unspecified (6) Migraine: Code(s): G43.909 - Migraine, unspecified, not intractable, without status migrainosus (7) HTN (hypertension), benign: Code(s): I10 - Essential (primary) hypertension (8) Pre-diabetes: Code(s): R73.03 - Prediabetes (9) Active asthma: Code(s): J45.909 - Unspecified asthma, uncomplicated (10) YOJANA on CPAP: Code(s): G47.33 - Obstructive sleep apnea (adult) (pediatric); Z99.89 - Dependence on other enabling machines and devices (11) Fibromyalgia: Code(s): M79.7 - Fibromyalgia (12) Depression: Code(s): F32.A - Depression, unspecified Plan I believe the patient is an excellent candidate for bariatric surgery, specifically a sleeve gastrectomy and possible hiatal hernia repair, however the persisting Helicobacter pylori infection in the setting of a family history of her father having gastric cancer, purportedly secondary to bacterial infection and cousin under scars the importance of evaluating the patient before proceeding with surgery. Using a teaching ingot buggy operator, we briefly discussed the plan for bariatric surgery, but the patient notes that her hoarseness and voice change his worsened over the past few months in addition to her left upper quadrant pain. She is tolerating being off of the omeprazole at this point but we did discuss the possibility of restarting it if her symptoms worsen and utilizing an EGD and biopsies instead. No changes were made to the patient's meal plan and she will continue the current exercise plan. I will see her back in 1 month. She will follow up with both Dr. Cotto & John Capellan. Coding Level of Care Code Est Pt Level 4 (91078) Diagnoses FH: gastric cancer Z80.0 H. pylori infection A04.8 Morbid obesity E66.01 Hiatal hernia K44.9 Hyperlipidemia E78.5 Migraine G43.909 HTN (hypertension), benign I10 Pre-diabetes R73.03 Active asthma J45.909 YOJANA on CPAP G47.33; Z99.89 Fibromyalgia M79.7 Depression F32.A
[2023-06-19 14:23] VITALS: BP 160/70; PULSE 80; TEMP 36.4; O2SAT 95; BMI 46.3
== END 2023-06-19 15:46 | disposition home or self-care (01) ==
PROVIDERS: PCP Internal Medicine; Visit Provider Surgery
DX: E66.01 Morbid (severe) obesity due to excess calories (principal); Z68.42 Body mass index [BMI] 45.0-49.9, adult; K44.9 Diaphragmatic hernia without obstruction or gangrene; Z80.0 Family history of malignant neoplasm of digestive organs
CPT/HCPCS: 99214

== ENCOUNTER → 2023-06-19 14:01 | Outpatient (BNVA) | payer OTHER, SELFPAY | PROVIDERS: PCP Internal Medicine; Visit Provider Surgery | DX: A04.8 Other specified bacterial intestinal infections (principal); E66.01 Morbid (severe) obesity due to excess calories; K44.9 Diaphragmatic hernia without obstruction or gangrene; E78.5 Hyperlipidemia, unspecified; G43.909 Migraine, unspecified, not intractable, without status migrainosus; I10 Essential (primary) hypertension; R73.03 Prediabetes; J45.909 Unspecified asthma, uncomplicated; G47.33 Obstructive sleep apnea (adult) (pediatric); F32.A Depression, unspecified; M79.7 Fibromyalgia; Z80.0 Family history of malignant neoplasm of digestive organs; Z99.89 Dependence on other enabling machines and devices | CPT/HCPCS: 99212 ==

== ENCOUNTER 2023-06-24 14:33 | Outpatient (REF) | payer OTHER, SELFPAY ==
[2023-06-28 12:55] LABS: H Pylori Breath Test Positive (Negative)
== END 2023-06-24 14:34 | disposition home or self-care (01) ==
LOC: HO.LNP 14:33
PROVIDERS: Physician Assistant; PCP Internal Medicine; Visit Provider Internal Medicine
DX: Z01.818 Encounter for other preprocedural examination (principal); A04.8 Other specified bacterial intestinal infections
CPT/HCPCS: 83013; 99211

== ENCOUNTER 2023-06-26 13:14 | Outpatient (AMB) | payer OTHER, SELFPAY ==
[2023-06-26 13:30] VITALS: BP 172/58; PULSE 67; BMI 46.1
--- NOTE | 2023-06-26 13:30 | A.OFFVIS_ITS ---
Intake Vital Signs 06/26/23 13:30 Height 5 ft 4 in Weight 268 lb 8.368 oz BMI 46.1 BP 172/58 H Blood Pressure Location Lt brachial Position Sitting Pulse 67 Pulse Source Pulse Oximeter Intake Visit Reasons: follow up Intake Note: Pt presents to the office today for a follow up. Pt states she had stomach pain on her left side yesterday and felt nauseous and feels the same today. She denies vomiting or diarrhea. Pt states she doesnt think the medicine she was given is working. Allergies diclofenac Allergy (Mild, Verified 06/26/23 13:32) Unknown droperidol [DROPERIDOL] Allergy (Unknown, Verified 06/26/23 13:32) UNKNOWN duloxetine [From CYMBALTA] Allergy (Unknown, Verified 06/26/23 13:32) UNKNOWN HPI HPI Comments History of Present Illness Details This is a 58y.o F with PMH of obesity, YOJANA, depression, who is following up for persistent H Pylori infection. Hx was obtained with the help of manager medicare marketing. 06/03/23: Pt reports no abd pain, N,V. Was noted to be H Pylori positive earlier this year and treated with triple therapy however that did not eradicate the infection and TYSON was positive on 02/27. She was then prescribed quad therapy which she could not take as prescribed as not all the meds were available at the pharmacy. Currently reports having 2 of the meds at home but is unsure which ones she has. 06/26/23: Visit was set up specifically to go over the previous therapy trials. Appears to have taken triple therapy twice (December and February) and then quad therapy was prescribed more recently but on review of pill bottles it appears pt only took tetracycline and flagyl. Never received Bismuth from pharmacy and only consumed half of omeprazole. Therefore, persistent H pylori most likely due to nonadherence and incomplete treatment. Pt also has fam hx of gastric ca in father so has an even stronger indication for eradication. Breath test 06/24 pending. PFSH Surgical History History of esophagogastroduodenoscopy (EGD) Hx of cholecystectomy Hx of colonoscopy Hx of hernia repair Hx of hysterectomy Family History Mother Hypertension Arthritis Father No problems noted. Son No problems noted. Social History Alcohol intake: never Patient Tobacco Use Status: Never used Tobacco Review of Systems Const All systems reviewed & are unremarkable except as noted in HPI and below Physical Exam Vital Signs: Last Vital Signs Pulse 67 06/26/23 13:30 BP 172/58 H 06/26/23 13:30 BMI result Body Mass Index 46.1 Gen appear: NAD HEENT: nonicteric, no cervical lymphadenopathy Chest: CTA CVS: Regular S1/S2 Abd: soft, nontender, nondistended, bowel sounds + Ext: no peripheral edema Neuro: A/Ox3, noted to move all extremities spontaneously Psych: interacting appropriately Assessment & Plan Assessment & Plan (1) H. pylori infection: Code(s): A04.8 - Other specified bacterial intestinal infections (2) FH: gastric cancer: Code(s): Z80.0 - Family history of malignant neoplasm of digestive organs Plan Reviewed with the pt that most likely the H Pylori test will return positive again. In which case would recommend a repeat course of quad therapy HOWEVER she is to take it as prescribed and to NOT start the therapy until all 4 meds are available. Plan: - Await results of H pylori breath test - If positive, 14 days of therapy (should not start any of these until has ALL 4 meds filled) : Omeprazole 40mg BID Tetracycline 500mg 4 times a day (avoid sunburn while taking) Metronidazole 250mg 4 times a day? (avoid all alcohol while taking, can take with food to avoid nausea) Bismuth Subsalicylate 524mg 4 times a day (may turn stools black) - This is to be followed by TYSON 2-3 weeks AFTER completion of therapy - If still has persistent infection will prefer EGD with biopsies over salvage therapy to i) obtain culture and sensitivities for H pylori and ii) gastric mapping due to fam hx - Extensive med instructions and teach back was completed with the manager medicare marketing. Instructions were also printed out and handed to pt (has a friend at home who can help translate the Guatemalan instructions) Follow up in 7 weeks for TYSON and 8 weeks for office visit Patient Instructions: Date: 06/26/23 ? Dear Loni ? This is to review the instructions for medications again. As discussed in office H.Pylori is a bacteria that can cause irritation and changes in the lining of the stomach. In most patients, it is important to treat this as if left untreated there is a small chance of the gastric changes progressing to cancer. This small risk is variable and also depends on other factors such as obesity, diabetes, family history etc. Treatment is through a combination of antibiotics and acid-suppressing medications to be taken for 2 weeks. Please do not start the treatment until you have ALL the following pills: -Omeprazole 40mg 2 times a day -Tetracycline 500mg 4 times a day (avoid sunburn while taking) -Metronidazole 250mg 4 times a day? (this may cause abdominal discomfort and nausea. Avoid all alcohol while taking, can take with food to avoid nausea) -Bismuth Subsalicylate 524mg 4 times a day (may turn stools black). Once the treatment has been completed, we will discuss the next steps, including making sure the bacteria has been eliminated ( test of cure ). If you have any questions, please call the office at [phone]. Sincerely Stephanie Cotto MD Gastroenterology [address] [place] [address], [address] [place] [address] Coding Level of Care Code Est Pt Level 4 (32700) Diagnoses H. pylori infection A04.8 FH: gastric cancer Z80.0
== END 2023-06-26 14:46 | disposition home or self-care (01) ==
PROVIDERS: PCP Internal Medicine; Visit Provider Internal Medicine
DX: A04.8 Other specified bacterial intestinal infections (principal); Z80.0 Family history of malignant neoplasm of digestive organs
CPT/HCPCS: 99214

== ENCOUNTER 2023-06-26 13:14 | Outpatient (REF) | payer OTHER, SELFPAY ==
[2023-06-26 14:30] LABS: MANUAL DIFF FLAG NO
[2023-06-26 15:00] LABS: Basophils Percent Auto 0.5 % (0-2); Eosinophils Absolute Auto 0.1 X10*3/uL (0.0-0.4); Eosinophils Percent Auto 1.6 % (0-4); Hematocrit 35.5 % (37.0-47.0); Hemoglobin 11.3 g/dl (12.0-16.0); Imm Gran Abs Auto 0.03 X10*3/uL (0.00-0.03); Imm Gran Pct Auto 0.5 % (0.0-0.4); Lymphocytes Absolute Auto 1.5 X10*3/uL (1.2-4.9); Lymphocytes Percent Auto 27.6 % (20-40); Mean Corpuscular HGB Conc 31.8 g/dl (31.0-35.0); Mean Corpuscular Hemoglobin 23.9 pg (27.0-33.0); Mean Corpuscular Volume 75.1 fL (80.0-98.0); Mean Platelet Volume 11.1 fL (9.4-12.3); Monocytes Absolute Auto 0.4 X10*3/uL (0.1-1.2); Monocytes Percent Auto 7.6 % (2-11); Neutrophils Absolute Auto 3.4 x10*3/uL (2.0-8.3); Neutrophils Percent Auto 62.2 % (45-73); Platelet Count 260 X10*3/uL (160-400); Red Blood Count 4.73 X10*6/uL (4.20-5.50); Red Cell Distribution Width 15.1 % (11.0-16.0); White Blood Count 5.5 X10*3/uL (4.8-10.8)
[2023-06-26 15:37] LABS: Anion Gap 11 (12-20); Blood Urea Nitrogen 8 mg/dL (9-16); Calcium 9.5 mg/dL (8.4-10.2); Carbon Dioxide 27 mmol/L (22-29); Chloride 107 mmol/L (96-108); Estimated Glomerular Filt Rate > 60; Glucose Random 91 mg/dL (60-115); Potassium 3.4 mmol/L (3.3-5.1); Sodium 142 mmol/L (135-145)
== END 2023-06-26 13:15 | disposition home or self-care (01) ==
LOC: HO.LAB 13:14
PROVIDERS: PCP Internal Medicine; Visit Provider Surgery
DX: A04.8 Other specified bacterial intestinal infections (principal); G47.33 Obstructive sleep apnea (adult) (pediatric); I10 Essential (primary) hypertension; K44.9 Diaphragmatic hernia without obstruction or gangrene; R10.12 Left upper quadrant pain; Z99.89 Dependence on other enabling machines and devices; Z80.0 Family history of malignant neoplasm of digestive organs
CPT/HCPCS: 36415; 80048; 85025; 99212

== ENCOUNTER 2023-07-10 09:39 | Outpatient (AMB) | payer OTHER, SELFPAY ==
--- NOTE | 2023-07-10 09:42 | A.OFFVIS_ITS ---
Intake VS Expanded 07/10/23 09:49 Height 5 ft 4 in Weight 264 lb 6.4 oz BMI 45.4 BP 157/71 H Blood Pressure Location Rt brachial Blood Pressure Position Sitting Pulse 63 Pulse Source Pulse Oximeter Temp 97.4 F Temperature Source Temporal Artery Scan Pulse Oximetry 96 Oxygen Delivery Method Room Air Body Fat 116.4 Body Fat Percentage 44.0 Free Fat Mass 148.0 Muscle Mass 140.4 Visceral Mass 15.0 Water Mass 105.2 BMR 2,067 Intake Visit Reasons: (OV) F/U SWL (JOHN) Allergies diclofenac Allergy (Mild, Verified 07/10/23 09:46) Unknown droperidol [DROPERIDOL] Allergy (Unknown, Verified 07/10/23 09:46) UNKNOWN duloxetine [From CYMBALTA] Allergy (Unknown, Verified 07/10/23 09:46) UNKNOWN HPI HPI Comments History of Present Illness Details Pt has met with Dr Andrea and completed all pre op work up except for h pylori treatment. She started quadruple therapy by Dr Nielsen on 07/03/23- will be completed on 07/17/23. She will have repeat h pylori with Dr Nielsen on 08/14 (ready by Aug 02). She is scheduled for CT of chest and abd on 07/17 due to family history of gastric cancer and her chronic/recurrent h pylori. [employer] weight of 305.8, TBWL of 41.4 lbs or 13.5%. Pt continues with her meal plan and has to limit her exercise most days to chair exericses due to left knee pain/arthritis. She has lost anther 4 lbs since last appt. PFSH Surgical History Hx of colonoscopy History of esophagogastroduodenoscopy (EGD) Hx of hernia repair Hx of hysterectomy Hx of cholecystectomy Family History Mother Hypertension Arthritis Father No problems noted. Son No problems noted. Social History Alcohol intake: never Patient Tobacco Use Status: Never used Tobacco Physical Exam Vital Signs: Last Vital Signs Temp 97.4 F 07/10/23 09:49 Pulse 63 07/10/23 09:49 BP 157/71 H 07/10/23 09:49 Pulse Ox 96 07/10/23 09:49 Oxygen Delivery Method Room Air 07/10/23 09:49 BMI result Body Mass Index 45.4 Assessment & Plan Assessment & Plan (1) Morbid obesity: Code(s): E66.01 - Morbid (severe) obesity due to excess calories Plan: No changes to meal or exercise plans - she will continue what she is successfully doing. Presetnly taking quad therapy for recurrent h pylori, and has repeat scheduled with Dr nielsen on 08/14. Has appt scheduled with Dr Andrea on 07/[address] scan results. Patient is morbidly obese and is not considered stable at this time. I spent 30 minutes in total with patient reviewing/updating records, examining the patient and counseling the patient on weight management as detailed above. (2) H. pylori infection: Code(s): A04.8 - Other specified bacterial intestinal infections Coding Level of Care Code Est Pt Level 4 (93350) Diagnoses Morbid obesity E66.01 H. pylori infection A04.8
[2023-07-10 09:49] VITALS: BP 157/71; PULSE 63; TEMP 36.3; O2SAT 96; BMI 45.4
== END 2023-07-10 10:16 | disposition home or self-care (01) ==
PROVIDERS: PCP Internal Medicine; Visit Provider Physician Assistant
DX: E66.01 Morbid (severe) obesity due to excess calories (principal); Z68.42 Body mass index [BMI] 45.0-49.9, adult; A04.8 Other specified bacterial intestinal infections
CPT/HCPCS: 99213

== ENCOUNTER → 2023-07-10 09:39 | Outpatient (BNVA) | payer OTHER, SELFPAY | PROVIDERS: PCP Internal Medicine; Visit Provider Physician Assistant | DX: A04.8 Other specified bacterial intestinal infections (principal); K62.5 Hemorrhage of anus and rectum; G47.33 Obstructive sleep apnea (adult) (pediatric); Z99.89 Dependence on other enabling machines and devices; F32.A Depression, unspecified; J45.909 Unspecified asthma, uncomplicated; I10 Essential (primary) hypertension; R73.03 Prediabetes; K44.9 Diaphragmatic hernia without obstruction or gangrene; E78.5 Hyperlipidemia, unspecified; E66.01 Morbid (severe) obesity due to excess calories ==

== ENCOUNTER 2023-07-17 15:59 | Outpatient (REF) | payer OTHER, SELFPAY | END 2023-07-17 16:00 | disposition home or self-care (01) | LOC: HO.CT 15:59 | PROVIDERS: PCP Internal Medicine; Visit Provider Surgery | DX: Z13.89 Encounter for screening for other disorder (principal) ==

== ENCOUNTER 2023-07-18 14:02 | Outpatient (REF) | payer OTHER, SELFPAY ==
--- NOTE | ~2023-07-18 | CT_ITS ---
EXAMINATION: CT ABDOMEN AND PELVIS WITH CONTRAST CLINICAL INFORMATION: Other specified bacterial intestinal infection. COMPARISON: Upper GI 01/16/2023, ultrasound abdomen 01/16/2023. TECHNIQUE: Multidetector volumetric images were obtained from the superior aspect of the liver through the pubic symphysis following administration 85 mL of Omnipaque 350 intravenous contrast. Sagittal and coronal reformatted images were obtained on the technologist's workstation. Oral contrast: No. This CT examination was performed using dose optimization techniques as appropriate, variously including the following: *Automated exposure control *Adjustment of mA and/or kV according to patient size (this includes techniques or standardized protocols for targeted exams where dose is matched to indication/reason for exam; i.e. extremities or head) *Use of iterative reconstruction technique DLP: 737 mGy-cm FINDINGS: LUNG BASES: The visualized lung bases are unremarkable. LIVER, GALLBLADDER, AND BILIARY TREE: The liver is mildly enlarged at 18.4 cm in greatest cephalocaudad dimension. There is a single 4 mm hypodensity in the right lobe of the liver (3:17 and 6:47), most likely a tiny cyst. No worrisome solid focal hepatic lesion or biliary ductal dilatation is present. Status post cholecystectomy. PANCREAS: Unremarkable. SPLEEN: Unremarkable. ADRENAL GLANDS: Unremarkable. KIDNEYS AND URETERS: The kidneys are normal in size, shape, and attenuation. No hydronephrosis, hydroureter, or calculi seen. No perinephric stranding. BLADDER: Unremarkable. GASTROINTESTINAL TRACT: The small and large bowel are unremarkable. The appendix is unremarkable. ABDOMINAL WALL: There has been prior abdominal wall surgery. There is diastasis of the rectus muscles above the umbilicus. No groin hernias are seen. LYMPH NODES: No retroperitoneal lymphadenopathy. VASCULAR: Unremarkable. PELVIC VISCERA: The uterus is not seen. An abnormal adnexal mass is not present. OSSEOUS STRUCTURES: Unremarkable. CT/CT abdomen pelvis w IV con IMPRESSION: 1. A cause for the patient's abdominal pain has not been found. 2. Incidental note made of mild hepatomegaly, cholecystectomy, hysterectomy, and diastasis of the rectus muscles with prior abdominal wall surgery. Fleischner guidelines were followed.
[2023-07-18] MEDS: Barium Sulfate Oral (Vanilla) 450 ML ORAL.SUSP 900 ML PO (16:23)
[2023-07-18] MEDS: iohexoL 350 MG/ML 100 ML INFUS..BTL 85 ML IV (16:23)
== END 2023-07-18 14:03 | disposition home or self-care (01) ==
LOC: HO.CT 14:02
PROVIDERS: PCP Internal Medicine; Visit Provider Surgery
DX: A04.8 Other specified bacterial intestinal infections (principal); R10.12 Left upper quadrant pain; Z80.0 Family history of malignant neoplasm of digestive organs
CPT/HCPCS: 74177; Q9967

== ENCOUNTER 2023-07-24 12:48 | Outpatient (AMB) | payer OTHER, SELFPAY ==
--- NOTE | 2023-07-24 13:00 | MHC.OFFVISWM ---
Intake VS Expanded 07/24/23 13:11 Height 5 ft 4 in Weight 262 lb BMI 45.0 BP 165/76 H Blood Pressure Location Rt brachial Blood Pressure Position Sitting Pulse 90 Pulse Source Pulse Oximeter Temp 97.5 F Temperature Source Tympanic Pulse Oximetry 97 Oxygen Delivery Method Room Air Body Fat 112.0 Body Fat Percentage 42.8 Free Fat Mass 150.0 Muscle Mass 142.4 Visceral Mass 15.0 Water Mass 106.4 BMR 2,087 Intake Visit Reasons: (OV) F/U SWL (JOHN) Genetics Teacher Required: Yes Genetics Teacher Language: Medical Biller/Coder Name: Jina Information Interpreted: non-clinical & clinical Receptionist Secretary: Receptionist Secretary Present Allergies diclofenac Allergy (Mild, Verified 07/24/23 13:04) Unknown droperidol [DROPERIDOL] Allergy (Unknown, Verified 07/24/23 13:04) UNKNOWN duloxetine [From CYMBALTA] Allergy (Unknown, Verified 07/24/23 13:04) UNKNOWN HPI HPI Comments History of Present Illness Details The patient is a 58-year-old Yi-speaking only woman who is accompanied by her TRAINING PROGRAM DEVELOPER today. She reports a lifelong crane with obesity and has failed medical management and intervention. She is interested in sleeve gastrectomy but notes a recurring, refractory Helicobacter pylori infection and is being seen by Dr. Cotto in our Gastroenterology Department. Patient is currently off of her PPI and reports both voice changes/hoarseness that is worsened over the past few weeks to months as well as left upper quadrant and left flank pain. She notes that an upper endoscopy was done at [facility] in the past year and she was noted to have both an ulcer and H pylori infection. Today, the patient notes that the abdominal pain that was occurring has resolved, and she has predominantly left lower extremity/left knee pain and some concern regarding bruising. Patient is congratulated on her interval weight loss and entered the surgical weight loss program at 305.8 lb/BMI 52.4 and has lost weight to 262.0 lb/BMI 45.0 at today's visit. She is congratulated on the interval weight loss and still notes difficulty regarding her left knee arthritis which is [id number] according to the patient and she is using exercise videos that allow her to limit impact on this knee. She stated calling her PCP & orthopedic doctors would occur today. The patient has obesity related comorbidities include obstructive sleep apnea on CPAP, prediabetes, hyperlipidemia, hypertension and her left knee arthritis is worsened by her obesity. She reports she is tolerating the current meal plan well with no difficulties and has a follow-up with John next month. She also states she has a follow-up with gastroenterology for office f/u & EGD with Dr. Cotto. As noted, t patient also states she had an up upper endoscopy at [facility] that confirmed a gastric ulcer earlier this year and that she had an H pylori infection; it does not sound like any follow-up endoscopy to assess the ulcer was ever arranged. The patient had noted her father from gastric cancer that she is told is related to a bacterial infection at in his stomach; she also notes that a maternal cousin from gastric cancer related to a stomach infection by a bacteria Patient reports a history of blood transfusion of past secondary to vaginal bleeding that required partial hysterectomy. She also notes to umbilical hernia repair, the last being laparoscopic done at [facility] and notes that she is status post cholecystectomy. [facility] Surgical History Hx of colonoscopy History of esophagogastroduodenoscopy (EGD) Hx of hernia repair Hx of hysterectomy Hx of cholecystectomy Family History Mother Hypertension Arthritis Father No problems noted. Son No problems noted. Social History Alcohol intake: never Patient Tobacco Use Status: Never used Tobacco Review of Systems Const All systems reviewed & are unremarkable except as noted in HPI and below Reports as per HPI Physical Exam Vital Signs: Last Vital Signs Temp 97.5 F 07/24/23 13:11 Pulse 90 07/24/23 13:11 BP 165/76 H 07/24/23 13:11 Pulse Ox 97 07/24/23 13:11 Oxygen Delivery Method Room Air 07/24/23 13:11 BMI result Body Mass Index 45.0 On exam, she is comfortable and in no acute distress She is having no respiratory difficulty Abdomen is obese and she reports left knee pain with no obvious swelling, edema or evidence of infection on exam Results Reviewed Results Reviewed: Labs 12/07/2022 Mild anemia with a hemoglobin of 11.8, platelet count 286, white blood cell count 8.9 Vitamins a, B 1 in D were low at replaced BUN 14, creatinine 0.86, electrolytes within normal parameters Hemoglobin A1c 5.9 Iron and LFTs within normal parameters H pylori positive CT A/P 07/18/23 images & report are reviewed & I concur with the final reading: CT/CT abdomen pelvis w IV con IMPRESSION: 1. A cause for the patient's abdominal pain has not been found. 2. Incidental note made of mild hepatomegaly, cholecystectomy, hysterectomy, and diastasis of the rectus muscles with prior abdominal wall surgery. Assessment & Plan Assessment & Plan (1) Morbid obesity: Code(s): E66.01 - Morbid (severe) obesity due to excess calories (2) Hyperlipidemia: Code(s): E78.5 - Hyperlipidemia, unspecified (3) Hiatal hernia: Code(s): K44.9 - Diaphragmatic hernia without obstruction or gangrene (4) Pre-diabetes: Code(s): R73.03 - Prediabetes (5) HTN (hypertension), benign: Code(s): I10 - Essential (primary) hypertension (6) Active asthma: Code(s): J45.909 - Unspecified asthma, uncomplicated (7) YOJANA on CPAP: Code(s): G47.33 - Obstructive sleep apnea (adult) (pediatric); Z99.89 - Dependence on other enabling machines and devices (8) Fibromyalgia: Code(s): M79.7 - Fibromyalgia (9) H. pylori infection: Code(s): A04.8 - Other specified bacterial intestinal infections (10) FH: gastric cancer: Code(s): Z80.0 - Family history of malignant neoplasm of digestive organs Plan No changes to the patient's meal plan. She will follow up with John Capellan PA-C at the end of July. The importance of follow-up with Dr. Cotto regarding her Helicobacter pylori infection was reviewed with the patient and her TRAINING PROGRAM DEVELOPER and apparently understood. The importance of increased activity/exercise was discussed with the patient and she notes that she is limited due to her left leg pain. She is instructed to contact both her PCP and orthopedic surgeons and she has benefited from what is likely steroid injections to her knees in the past. CT results were explained to the patient and it is encouraging that her left upper quadrant abdominal pain has completely resolved with H pylori treatment. The importance of EGD given her prior history of gastric ulcer was discussed and apparently understood. Patient will follow-up with me in early August. Coding Level of Care Code Est Pt Level 4 (64721) Diagnoses Morbid obesity E66.01 Hyperlipidemia E78.5 Hiatal hernia K44.9 Pre-diabetes R73.03 HTN (hypertension), benign I10 Active asthma J45.909 YOJANA on CPAP G47.33; Z99.89 Fibromyalgia M79.7 H. pylori infection A04.8 FH: gastric cancer Z80.0
[2023-07-24 13:11] VITALS: BP 165/76; PULSE 90; TEMP 36.4; O2SAT 97; BMI 45.0
== END 2023-07-24 13:29 | disposition home or self-care (01) ==
PROVIDERS: PCP Internal Medicine; Visit Provider Surgery
DX: E66.01 Morbid (severe) obesity due to excess calories (principal); Z68.42 Body mass index [BMI] 45.0-49.9, adult; K44.9 Diaphragmatic hernia without obstruction or gangrene; R73.03 Prediabetes; I10 Essential (primary) hypertension; J45.909 Unspecified asthma, uncomplicated; G47.33 Obstructive sleep apnea (adult) (pediatric); Z99.89 Dependence on other enabling machines and devices; M79.7 Fibromyalgia; A04.8 Other specified bacterial intestinal infections; Z80.0 Family history of malignant neoplasm of digestive organs
CPT/HCPCS: 99214

== ENCOUNTER → 2023-07-24 12:48 | Outpatient (BNVA) | payer OTHER, SELFPAY | PROVIDERS: PCP Internal Medicine; Visit Provider Surgery | DX: A04.8 Other specified bacterial intestinal infections (principal); E66.01 Morbid (severe) obesity due to excess calories; K44.9 Diaphragmatic hernia without obstruction or gangrene; G47.33 Obstructive sleep apnea (adult) (pediatric); R73.03 Prediabetes; E78.5 Hyperlipidemia, unspecified; I10 Essential (primary) hypertension; J45.909 Unspecified asthma, uncomplicated; M79.7 Fibromyalgia; Z68.42 Body mass index [BMI] 45.0-49.9, adult; Z80.0 Family history of malignant neoplasm of digestive organs; Z99.89 Dependence on other enabling machines and devices | CPT/HCPCS: 99212 ==

== ENCOUNTER 2023-08-14 12:48 | Outpatient (REF) | payer OTHER, SELFPAY ==
[2023-08-16 10:49] LABS: H Pylori Breath Test Positive (Negative)
== END 2023-08-14 12:49 | disposition home or self-care (01) ==
LOC: HO.LNP 12:48
PROVIDERS: Internal Medicine Infectious Disease; PCP Internal Medicine; Visit Provider Internal Medicine
DX: A04.8 Other specified bacterial intestinal infections (principal)
CPT/HCPCS: 83013

== ENCOUNTER 2023-08-27 13:30 | Outpatient (AMB) | payer OTHER, SELFPAY ==
--- NOTE | 2023-08-27 13:36 | MHC.OFFVISWM ---
Intake VS Expanded 08/27/23 13:38 Height 5 ft 4 in Intake Visit Reasons: VIDEO F/U SWL Allergies diclofenac Allergy (Mild, Verified 08/14/23 13:41) Unknown droperidol [DROPERIDOL] Allergy (Unknown, Verified 08/14/23 13:41) UNKNOWN duloxetine [From CYMBALTA] Allergy (Unknown, Verified 08/14/23 13:41) UNKNOWN HPI HPI Comments History of Present Illness Details SWL follow up. Persistent h pylori infection x 5 since Nov 2022. Pt was seen by Dr Cotto and had another round of quadruple therapy and last h pylori on 08/14 was positive again. She states she was not aware of appt on 08/[address] Cotto. She has no weight for today - can not find her scale. All other pre op work up has been completed. She states she is continuing her meal plan as before. Exercise- still has left knee pain, still no appt in ortho - states she is waiting for a call back regarding another steroid injections. States she is doing home videos daily. [facility] Surgical History Hx of colonoscopy History of esophagogastroduodenoscopy (EGD) Hx of hernia repair Hx of hysterectomy Hx of cholecystectomy Family History Mother Hypertension Arthritis Father No problems noted. Son No problems noted. Social History (Reviewed 07/24/23 @ 13:23 by Vasquez Andrea MD, [facility], [facility]) Alcohol intake: never Patient Tobacco Use Status: Never used Tobacco Assessment & Plan Assessment & Plan (1) Morbid obesity: Code(s): E66.01 - Morbid (severe) obesity due to excess calories Plan: Pt has been preparing for bariatric surgery, but has had persistent h pylori infection (family history of gastric cancer) treated multiple times. I told patient that Dr Andrea and Dr Cotto will need to decide on a treatment plan for her andwill let her know at her appt with Dr Andrea on 09/03. She will continue her meal plan and exercise plan and text me her weight and the name of the exercise videso she is using. If she can not find her scale she will need to purchase a new one to send us weights electronically. Patient is still morbidly obese and is not considered stable at this time. I spent 25 minutes in total speaking with the patient via video conference counseling , reviewing records and charting in patients chart. . (2) Hiatal hernia: Code(s): K44.9 - Diaphragmatic hernia without obstruction or gangrene (3) H. pylori infection: Code(s): A04.8 - Other specified bacterial intestinal infections Telehealth Telehealth Location of provider rendering services: practice address Location of patient: address on file Patient Identification confirmed using: Name, : Yes Telehealth method: voice only Patient verbally consented to treatment: Yes Patient verbally consented to billing insurance company: Yes Patient informed of any privacy concerns related to visit: Yes Coding Level of Care Code Tele Est Pt Level 4 (86498) Diagnoses Morbid obesity E66.01 Hiatal hernia K44.9 H. pylori infection A04.8
== END 2023-08-27 14:00 | disposition home or self-care (01) ==
LOC: HO.HBS 13:59
PROVIDERS: PCP Internal Medicine; Visit Provider Physician Assistant
DX: E66.01 Morbid (severe) obesity due to excess calories (principal); K44.9 Diaphragmatic hernia without obstruction or gangrene; A04.8 Other specified bacterial intestinal infections
CPT/HCPCS: 99214

== ENCOUNTER → 2023-08-27 13:30 | Outpatient (BNVA) | payer OTHER, SELFPAY | PROVIDERS: PCP Internal Medicine; Visit Provider Physician Assistant | DX: E66.01 Morbid (severe) obesity due to excess calories (principal); K44.9 Diaphragmatic hernia without obstruction or gangrene; A04.8 Other specified bacterial intestinal infections ==

== ENCOUNTER 2023-09-03 12:55 | Outpatient (AMB) | payer OTHER, SELFPAY ==
--- NOTE | 2023-09-03 11:42 | MHC.OFFVISWM ---
Intake VS Expanded 09/03/23 13:05 BP 185/83 H Blood Pressure Location Rt brachial Blood Pressure Position Sitting Pulse 70 Pulse Source Pulse Oximeter Temp 97.0 F Temperature Source Temporal Artery Scan Pulse Oximetry 100 Oxygen Delivery Method Room Air Height 5 ft 4 in Weight 257 lb 6.4 oz BMI 44.2 Body Fat % 42.7 Body Fat Mass 109.8 Fat Free Mass 147.4 Visceral Fat Rating 15.0 Body Water % 40.7 Body Water Mass 104.8 Muscle Mass/Score 140.0 Basal Metabolic Rate/Score 2,050 Intake Visit Reasons: (OV) F/U SWL Allergies diclofenac Allergy (Mild, Verified 09/03/23 13:02) Unknown droperidol [DROPERIDOL] Allergy (Unknown, Verified 09/03/23 13:02) UNKNOWN duloxetine [From CYMBALTA] Allergy (Unknown, Verified 09/03/23 13:02) UNKNOWN HPI HPI Comments History of Present Illness Details The patient is a 58-year-old Maltese-speaking only woman who is accompanied by her SPINNER CONCRETE PIPE today. She reports a lifelong crane with obesity and has failed medical management and intervention. She is interested in sleeve gastrectomy but notes a recurring, refractory Helicobacter pylori infection and is being seen by Dr. Cotto in our Gastroenterology Department. Repeat H. pylori testing is positive. Patient is congratulated on her interval weight loss and entered the surgical weight loss program at 305.8 lb/BMI 52.4 and has lost weight to 257.4 lb/BMI 44.2 at today's visit. She is congratulated on her 48lb weight loss since entering [facility]; she still notes difficulty regarding her left knee arthritis which is [id number] according to the patient and she is using exercise videos that allow her to limit impact on this knee. EMR indicates Dr. Cotto is awaiting GI endoscopy records from [facility]. The pt states she was diagnosed with gastric ulcer at EGD & f/u EGD is per Dr. Cotto. Records also note a colonoscopy for LGI bleeding was performed at [facility], but report is unavailable. The pt reports she missed her f/u appt with Dr. Cotto at the end of Jul & doesn't know what to do. The patient has obesity-related comorbidities include obstructive sleep apnea on CPAP, prediabetes, hyperlipidemia, hypertension and her left knee arthritis is worsened by her obesity. She reports she is tolerating the current meal plan well with no difficulties and has a follow-up with Krystyna by text & see me in 3 weeks. She also states she has a follow-up with gastroenterology for office f/u & EGD with Dr. Cotto. As noted, the patient also states she had an upper endoscopy at [facility] that confirmed a gastric ulcer earlier this year and that she had an H pylori infection; it does not sound like any follow-up endoscopy to assess the ulcer was ever arranged. F/U with Dr. Cotto is pending GI studies from [facility]. The patient has reported her father from gastric cancer that she is told is related to a bacterial infection at in his stomach; she also notes that a maternal cousin from gastric cancer related to a stomach infection by a bacteria Patient reports a history of blood transfusion of past secondary to vaginal bleeding that required partial hysterectomy. She also notes to umbilical hernia repair, the last being laparoscopic done at [facility] and notes that she is status post cholecystectomy. [facility] Surgical History Hx of colonoscopy History of esophagogastroduodenoscopy (EGD) Hx of hernia repair Hx of hysterectomy Hx of cholecystectomy Family History Mother Hypertension Arthritis Father No problems noted. Son No problems noted. Social History Alcohol intake: never Patient Tobacco Use Status: Never used Tobacco Review of Systems Const All systems reviewed & are unremarkable except as noted in HPI and below Physical Exam On exam, she is comfortable and in no acute distress She is having no respiratory difficulty Abdomen is obese and she reports left knee pain with no obvious swelling, edema or evidence of infection on exam Results Reviewed Results Reviewed: Labs 12/07/2022 Mild anemia with a hemoglobin of 11.8, platelet count 286, white blood cell count 8.9 Vitamins a, B 1 in D were low at replaced BUN 14, creatinine 0.86, electrolytes within normal parameters Hemoglobin A1c 5.9 Iron and LFTs within normal parameters H pylori positive CT A/P 07/18/23 images & report are reviewed & I concur with the final reading: CT/CT abdomen pelvis w IV con IMPRESSION: 1. A cause for the patient's abdominal pain has not been found. 2. Incidental note made of mild hepatomegaly, cholecystectomy, hysterectomy, and diastasis of the rectus muscles with prior abdominal wall surgery. Assessment & Plan Assessment & Plan (1) Morbid obesity: Code(s): E66.01 - Morbid (severe) obesity due to excess calories (2) Hyperlipidemia: Code(s): E78.5 - Hyperlipidemia, unspecified (3) Hiatal hernia: Code(s): K44.9 - Diaphragmatic hernia without obstruction or gangrene (4) HTN (hypertension), benign: Code(s): I10 - Essential (primary) hypertension (5) YOJANA on CPAP: Code(s): G47.33 - Obstructive sleep apnea (adult) (pediatric); Z99.89 - Dependence on other enabling machines and devices (6) Active asthma: Code(s): J45.909 - Unspecified asthma, uncomplicated (7) Pre-diabetes: Code(s): R73.03 - Prediabetes (8) H. pylori infection: Code(s): A04.8 - Other specified bacterial intestinal infections (9) Depression: Code(s): F32.A - Depression, unspecified (10) FH: gastric cancer: Code(s): Z80.0 - Family history of malignant neoplasm of digestive organs Plan Patient is congratulated on her 48 lb weight loss and no changes were made to her meal plan. She will follow up with me in 3 weeks. The importance of follow-up with Orthopedics regarding her chronic left knee complaints was also reviewed with both the patient and her SPINNER CONCRETE PIPE. Patient is encouraged to communicate with Krystyna Capellan PA-C via texts since she has acquired the scale necessary to report weight values since Krystyna & the pt can communicate in Maltese. Patient was taken to GI/Dr. Cotto's office by to facilitate a follow-up appointment re: H. pylori & EGD since the patient missed the last appt. The importance of follow through with the H pylori treatment and eradication due to her increased risk for gastric cancer & family history of gastric cancer was reviewed. Explained that we are on hold regarding sleeve gastrectomy until her H pylori is eradicated. Coding Level of Care Code Est Pt Level 4 (52179) Diagnoses Morbid obesity E66.01 Hyperlipidemia E78.5 Hiatal hernia K44.9 HTN (hypertension), benign I10 YOJANA on CPAP G47.33; Z99.89 Active asthma J45.909 Pre-diabetes R73.03 H. pylori infection A04.8 Depression F32.A FH: gastric cancer Z80.0
[2023-09-03 13:05] VITALS: BP 185/83; PULSE 70; TEMP 36.1; O2SAT 100; BMI 44.2
== END 2023-09-03 13:33 | disposition home or self-care (01) ==
PROVIDERS: PCP Internal Medicine; Visit Provider Surgery
DX: E66.01 Morbid (severe) obesity due to excess calories (principal); Z68.41 Body mass index [BMI] 40.0-44.9, adult; E78.5 Hyperlipidemia, unspecified; K44.9 Diaphragmatic hernia without obstruction or gangrene; I10 Essential (primary) hypertension
CPT/HCPCS: 99213

== ENCOUNTER → 2023-09-03 12:55 | Outpatient (BNVA) | payer OTHER, SELFPAY | PROVIDERS: PCP Internal Medicine; Visit Provider Surgery | DX: E66.01 Morbid (severe) obesity due to excess calories (principal); K44.9 Diaphragmatic hernia without obstruction or gangrene; R73.03 Prediabetes; I10 Essential (primary) hypertension; E78.5 Hyperlipidemia, unspecified; A04.8 Other specified bacterial intestinal infections; G47.33 Obstructive sleep apnea (adult) (pediatric); J45.909 Unspecified asthma, uncomplicated; F32.A Depression, unspecified; Z68.41 Body mass index [BMI] 40.0-44.9, adult; Z90.49 Acquired absence of other specified parts of digestive tract; Z80.0 Family history of malignant neoplasm of digestive organs | CPT/HCPCS: 99212 ==

== ENCOUNTER 2023-09-09 11:34 | Outpatient (AMB) | payer OTHER, SELFPAY ==
--- NOTE | 2023-09-09 11:37 | A.OFFVIS_ITS ---
Intake Vital Signs 09/09/23 11:40 Height 5 ft 4 in Weight 260 lb 2.327 oz BMI 44.6 BP 154/70 H Blood Pressure Location Lt radial Position Sitting Pulse 63 Intake Visit Reasons: 8 week follow up/ r/s from 08/21 Intake Note: Libby presents in the office as a 8 week follow up. CC: She states that she is not having any concerns at this time. Satellite Tv Technician Installer Required: Yes Satellite Tv Technician Installer Name: [id number] Allergies diclofenac Allergy (Mild, Verified 09/09/23 11:42) Unknown droperidol [DROPERIDOL] Allergy (Unknown, Verified 09/09/23 11:42) UNKNOWN duloxetine [From CYMBALTA] Allergy (Unknown, Verified 09/09/23 11:42) UNKNOWN HPI HPI Comments History of Present Illness Details This is a 58y.o F with PMH of obesity, YOJANA, depression, who is following up for persistent H Pylori infection. Hx was obtained with the help of guest experience manager. 06/03/23: Pt reports no abd pain, N,V. Was noted to be H Pylori positive earlier this year and treated with triple therapy however that did not eradicate the infection and TYSON was positive on 02/27. She was then prescribed quad therapy which she could not take as prescribed as not all the meds were available at the pharmacy. Currently reports having 2 of the meds at home but is unsure which ones she has. 06/26/23: Visit was set up specifically to go over the previous therapy trials. Appears to have taken triple therapy twice (December and February) and then quad therapy was prescribed more recently but on review of pill bottles it appears pt only took tetracycline and flagyl. Never received Bismuth from pharmacy and only consumed half of omeprazole. Therefore, persistent H pylori most likely due to nonadherence and incomplete treatment. Pt also has fam hx of gastric ca in father so has an even stronger indication for eradication. Breath test 06/24 pending. 09/09/23: Seen with live guest experience manager. Here after missing follow up - appt was specifically arranged by bariatric surg office. Unfortunately the H pylori breath test is still positive. Pt reports compliance with quad therapy this time. Reports taking 4 pills 4 times a day. Worried today as one of her maternal cousins was also recently diagnosed with gastric ca with HP positive. Screening colonoscopy June 2017 (Dr Villalpando): Good prep. Sigmoid diverticulosis. Repeat recommended in 10 years. PFSH Surgical History Hx of colonoscopy History of esophagogastroduodenoscopy (EGD) Hx of hernia repair Hx of hysterectomy Hx of cholecystectomy Family History Mother Hypertension Arthritis Father No problems noted. Son No problems noted. Social History Alcohol intake: never Patient Tobacco Use Status: Never used Tobacco Review of Systems Const All systems reviewed & are unremarkable except as noted in HPI and below Physical Exam Vital Signs: Last Vital Signs Pulse 63 09/09/23 11:40 BP 154/70 H 09/09/23 11:40 BMI result Body Mass Index 44.6 Gen appear: NAD HEENT: nonicteric, no cervical lymphadenopathy Chest: CTA CVS: Regular S1/S2 Abd: soft, nontender, nondistended, bowel sounds + Ext: no peripheral edema Neuro: A/Ox3, noted to move all extremities spontaneously Psych: interacting appropriately Assessment & Plan Assessment & Plan (1) H. pylori infection: Code(s): A04.8 - Other specified bacterial intestinal infections (2) FH: gastric cancer: Code(s): Z80.0 - Family history of malignant neoplasm of digestive organs Plan Discussed with the pt that since this is the 3rd attempt to eradicate H Pylori and pt reassures us of compliance would favor proceeding with an EGD next instead of choosing a salvage therapy to i) obtain culture and sensitivities for H pylori and ii) gastric mapping due to fam hx. [place] done in 2016 at [facility] and not due till 2026. Plan: - EGD to be booked for C&S and bx as above - Pt advised to HOLD iron supplements and omeprazole x 2 weeks prior to the EGD - Avoid NSAIDs - Follow up after EGD - pt made aware may be with a different provider depending on timing of EGD. Coding Level of Care Code Est Pt Level 4 (12361) Diagnoses H. pylori infection A04.8 FH: gastric cancer Z80.0
[2023-09-09 11:40] VITALS: BP 154/70; PULSE 63; BMI 44.6
== END 2023-09-09 12:36 | disposition home or self-care (01) ==
PROVIDERS: PCP Internal Medicine; Visit Provider Internal Medicine
DX: A04.8 Other specified bacterial intestinal infections (principal); Z80.0 Family history of malignant neoplasm of digestive organs
CPT/HCPCS: 99214

== ENCOUNTER → 2023-09-09 11:34 | Outpatient (BNVA) | payer OTHER, SELFPAY | PROVIDERS: PCP Internal Medicine; Visit Provider Internal Medicine | DX: A04.8 Other specified bacterial intestinal infections (principal); Z80.0 Family history of malignant neoplasm of digestive organs | CPT/HCPCS: 99212 ==

== ENCOUNTER 2023-09-24 13:02 | Outpatient (AMB) | payer OTHER, SELFPAY ==
--- NOTE | 2023-09-24 13:07 | A.OFFVIS_ITS ---
Intake VS Expanded 09/24/23 13:16 BP 169/79 H Blood Pressure Location Rt brachial Blood Pressure Position Sitting Pulse 75 Pulse Source Pulse Oximeter Temp 97.2 F Temperature Source Tympanic Pulse Oximetry 100 Oxygen Delivery Method Room Air Height 5 ft 4 in Weight 261 lb BMI 44.8 Body Fat % 42.3 Body Fat Mass 110.2 Fat Free Mass 150.6 Visceral Fat Rating 15.0 Body Water % 41.0 Body Water Mass 107.0 Muscle Mass/Score 143.0 Basal Metabolic Rate/Score 2,092 Intake Visit Reasons: (OV) F/U SWL Allergies diclofenac Allergy (Mild, Verified 09/24/23 13:20) Unknown droperidol [DROPERIDOL] Allergy (Unknown, Verified 09/24/23 13:20) UNKNOWN duloxetine [From CYMBALTA] Allergy (Unknown, Verified 09/24/23 13:20) UNKNOWN HPI HPI Comments History of Present Illness Details The patient is a 58-year-old Greek-speaking only woman who is accompanied by her PUBLIC ADDRESS SYSTEM OPERATOR today. She reports a lifelong crane with obesity and has failed medical management and intervention. She is interested in sleeve gastrectomy but notes a recurring, refractory Helicobacter pylori infection and is being seen by Dr. Cotto in our Gastroenterology Department. Repeat H. pylori testing is positive & plan for EGD w/ Bx & culture/sensetivities of H pyloru is pending by NERY. Patient is congratulated on her interval weight loss and entered the surgical weight loss program at 305.8 lb/BMI 52.4 and has regained to weight to 261.0/BMI 44.8 at today's visit. She is nevertheless congratulated on her 44lb weight loss since entering [facility]; she still notes difficulty regarding her left knee arthritis which is [id number] according to the patient and she is using exercise videos that allow her to limit impact on this knee. She is still performing sit and be fit exercises and has a physical therapy regarding her leg. She will follow up with Orthopedics after PT is complete. EMR indicates Dr. Cotto/NERY has recommending repeat EGD with biopsies, culture and sensitivities as the patient is still positive for Helicobacter & appears to have been compliant with the last treating schedule. The pt states she was diagnosed with gastric ulcer at EGD & f/u EGD is per Dr. Cotto. Records also note a colonoscopy for LGI bleeding was performed at [facility] and the patient is due for repeat in 2026. The patient has obesity-related comorbidities include obstructive sleep apnea on CPAP, prediabetes, hyperlipidemia, hypertension and her left knee arthritis is worsened by her obesity. She reports she is tolerating the current meal plan well with no difficulties and has a follow-up with Krystyna by text & see me in 3 weeks. She also states she has a follow-up with gastroenterology for office f/u & EGD with Dr. Cotto. As noted, the patient also states she had an upper endoscopy at [facility] that confirmed a gastric ulcer earlier this year and that she had an H pylori infection; it does not sound like any follow-up endoscopy to assess the ulcer was ever arranged. F/U with Dr. Cotto is pending GI studies from [facility]. The patient has reported her father from gastric cancer that she is told is related to a bacterial infection at in his stomach; she also notes that a maternal cousin from gastric cancer related to a stomach infection by a bacteria Patient reports a history of blood transfusion of past secondary to vaginal bleeding that required partial hysterectomy. She also notes to umbilical hernia repair, the last being laparoscopic done at [facility] and notes that she is status post cholecystectomy. [facility] Surgical History Hx of colonoscopy History of esophagogastroduodenoscopy (EGD) Hx of hernia repair Hx of hysterectomy Hx of cholecystectomy Family History Mother Hypertension Arthritis Father No problems noted. Son No problems noted. Social History Alcohol intake: never Patient Tobacco Use Status: Never used Tobacco Review of Systems Const All systems reviewed & are unremarkable except as noted in HPI and below Physical Exam Gen appear: NAD HEENT: nonicteric, no cervical lymphadenopathy Chest: CTA CVS: Regular S1/S2 Abd: soft, nontender, nondistended, bowel sounds + Ext: no peripheral edema Neuro: A/Ox3, noted to move all extremities spontaneously Psych: interacting appropriately Results Reviewed Results Reviewed: Labs 12/07/2022 Mild anemia with a hemoglobin of 11.8, platelet count 286, white blood cell count 8.9 Vitamins a, B 1 in D were low at replaced BUN 14, creatinine 0.86, electrolytes within normal parameters Hemoglobin A1c 5.9 Iron and LFTs within normal parameters H pylori positive CT A/P 07/18/23 images & report are reviewed & I concur with the final reading: CT/CT abdomen pelvis w IV con IMPRESSION: 1. A cause for the patient's abdominal pain has not been found. 2. Incidental note made of mild hepatomegaly, cholecystectomy, hysterectomy, and diastasis of the rectus muscles with prior abdominal wall surgery. Assessment & Plan Assessment & Plan (1) Morbid obesity: Code(s): E66.01 - Morbid (severe) obesity due to excess calories (2) YOJANA on CPAP: Code(s): G47.33 - Obstructive sleep apnea (adult) (pediatric); Z99.89 - Dependence on other enabling machines and devices (3) Pre-diabetes: Code(s): R73.03 - Prediabetes (4) HTN (hypertension), benign: Code(s): I10 - Essential (primary) hypertension (5) Hiatal hernia: Code(s): K44.9 - Diaphragmatic hernia without obstruction or gangrene (6) Hyperlipidemia: Code(s): E78.5 - Hyperlipidemia, unspecified (7) H. pylori infection: Code(s): A04.8 - Other specified bacterial intestinal infections (8) FH: gastric cancer: Code(s): Z80.0 - Family history of malignant neoplasm of digestive organs (9) Depression: Code(s): F32.A - Depression, unspecified (10) Fibromyalgia: Code(s): M79.7 - Fibromyalgia Plan The patient voiced concern over her 4 lb gain. I reassured her that this happens during holidays and she needs to refocus her effort, follow the current meal plan and do the best she can with physical therapy. No changes are made to her meal plan and she will follow-up in 1 month with Krystyna Capellan in the meantime. The importance of follow-up with GI regarding a repeat EGD and biopsies for her persistent H pylori infection, her family history of gastric cancer and increased risk for gastric cancer given this chronic infection was discussed. The patient seems to understand the importance, her PUBLIC ADDRESS SYSTEM OPERATOR is here and heard the plan. Patient will follow-up in mid September with Gastroenterology regarding scheduling an EGD for persistent H pylori infection. Coding Level of Care Code Est Pt Level 4 (02055) Diagnoses Morbid obesity E66.01 YOJANA on CPAP G47.33; Z99.89 Pre-diabetes R73.03 HTN (hypertension), benign I10 Hiatal hernia K44.9 Hyperlipidemia E78.5 H. pylori infection A04.8 FH: gastric cancer Z80.0 Depression F32.A Fibromyalgia M79.7
[2023-09-24 13:16] VITALS: BP 169/79; PULSE 75; TEMP 36.2; O2SAT 100; BMI 44.8
== END 2023-09-24 13:36 | disposition home or self-care (01) ==
PROVIDERS: PCP Internal Medicine; Visit Provider Surgery
DX: E66.01 Morbid (severe) obesity due to excess calories (principal); Z68.41 Body mass index [BMI] 40.0-44.9, adult; Z99.89 Dependence on other enabling machines and devices; R73.03 Prediabetes; I10 Essential (primary) hypertension; K44.9 Diaphragmatic hernia without obstruction or gangrene; E78.5 Hyperlipidemia, unspecified; A04.8 Other specified bacterial intestinal infections; Z80.0 Family history of malignant neoplasm of digestive organs; F32.A Depression, unspecified; M79.7 Fibromyalgia
CPT/HCPCS: 99213

== ENCOUNTER → 2023-09-24 13:02 | Outpatient (BNVA) | payer OTHER, SELFPAY | PROVIDERS: PCP Internal Medicine; Visit Provider Surgery | DX: E66.01 Morbid (severe) obesity due to excess calories (principal); A04.8 Other specified bacterial intestinal infections; K44.9 Diaphragmatic hernia without obstruction or gangrene; R73.03 Prediabetes; G47.33 Obstructive sleep apnea (adult) (pediatric); E78.5 Hyperlipidemia, unspecified; I10 Essential (primary) hypertension; M79.7 Fibromyalgia; F32.A Depression, unspecified; Z68.41 Body mass index [BMI] 40.0-44.9, adult; Z80.0 Family history of malignant neoplasm of digestive organs; Z99.89 Dependence on other enabling machines and devices | CPT/HCPCS: 99212 ==

== ENCOUNTER 2023-10-08 13:20 | Outpatient (AMB) | payer OTHER, SELFPAY ==
--- NOTE | 2023-10-08 13:36 | A.OFFVIS_ITS ---
Intake Vital Signs 10/08/23 13:39 Height 5 ft 4 in Weight 255 lb 11.779 oz BMI 43.9 BP 148/81 H Blood Pressure Location Lt brachial Position Sitting Pulse 67 Intake Visit Reasons: Follow up Esther CARROLL PATIENT Intake Note: Loni presents in the office as a follow up H pylori. 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 CARROLL (1) H. pylori infection: Code(s): A04.8 - Other specified bacterial intestinal infections (2) FH: gastric cancer: Code(s): Z80.0 - Family history of malignant neoplasm of digestive organs Plan Discussed with the pt that since this is the 3rd attempt to eradicate H Pylori and pt reassures us of compliance would favor proceeding with an EGD next instead of choosing a salvage therapy to i) obtain culture and sensitivities for H pylori and ii) gastric mapping due to fam hx. [place] done in 2016 at [facility] and not due till 2026. Plan: - EGD to be booked for C&S and bx as abo ve - Pt advised to HOLD iron supplements an d omeprazole x 2 weeks prior to the EGD - Avoid NSAIDs - Follow up after EGD - pt made aware ma y be with a different provider depending on timing of EGD. TODAY'S VISIT Patient is here today for follow-up visit periods scheduled endoscopy for the of this month. Patient continues to have epigastric discomfort postprandially. As mentioned above patient was seen by Dr. Carroll . Endoscopy to be booked for culture and biopsies so patient can have appropriate treatment for H pylori. Patient failed 3 different treatment with compliance and adherence to treatment. Patient denies any nausea or vomiting. Reports dyspepsia without dysphagia or odynophagia. Patient denies melena, hematochezia, unintentional weight loss or ribbon like stools. Reports that she is moving her bowels well without any issues. [facility] Medical History (Updated 10/17/23 @ 11:15 by Dorina Dooley RN) Pre-diabetes Migraine Elevated cholesterol Hiatal hernia Asthma Fibromyalgia Sleep apnea Depression HTN (hypertension) Surgical History Hx of colonoscopy History of esophagogastroduodenoscopy (EGD) Hx of hernia repair Hx of hysterectomy Hx of cholecystectomy Family History Mother Hypertension Arthritis Father No problems noted. Son No problems noted. Social History Alcohol intake: never Patient Tobacco Use Status: Never used Tobacco Review of Systems Const Denies weight gain and Denies weight loss ENT Reports no additional complaints, Denies dysphagia and Denies odynophagia Card Reports no additional complaints Resp Reports no additional complaints GI Denies abdominal pain, Denies belching, Denies melena, Denies bloating, Denies change in bowel habits, Denies dysphagia, Denies excessive flatus, Reports dyspepsia, Reports heartburn, Denies diarrhea, Denies loose stools, Denies nausea, Denies odynophagia and Denies vomiting Reports no additional complaints Musc Reports no additional complaints Neuro Reports no additional complaints Psych Reports no additional complaints Endo Reports no additional complaints Physical Exam Vital Signs: Last Vital Signs Pulse 67 10/08/23 13:39 BP 148/81 H 10/08/23 13:39 BMI result Body Mass Index 43.9 Const General: healthy appearing, no acute distress and well developed Nutritional Appearance: obese Orientation/consciousness: patient oriented x3 HEENT Head: Yes normal to inspection, Yes normocephalic and Yes atraumatic Face and sinus: Yes normal facial exam Mouth: Normal oral and palatal mucosa present Throat: Yes posterior oropharynx normal, Yes tonsils normal and Yes uvula midline Eyes General: appearance normal, both eyes and all related structures Neck Neck: Yes normal visual inspection, Yes full ROM and Yes trachea midline Thyroid: Thyroid normal Resp Effort & Inspection: normal respiratory effort, able to speak in complete sentences, no tracheal deviation and symmetric chest movement Auscultation: clear to auscultation bilaterally Cardio Rate: regular rate GI Inspection: Yes normal to inspection, No distended and Yes obesity Palpation (GI): Soft to palpation, not firm, nontender and No hepatosplenomegaly present Auscultation: normal bowel sounds General: Yes no CVA tenderness Back/Spine/Pelvis Back: no CVA tenderness Skin General skin exam: elasticity normal, turgor normal and dry skin Neuro General: patient oriented x3 Psych Appearance: grossly normal Mental Status: mental status grossly normal Assessment & Plan Assessment & Plan (1) FH: gastric cancer: Code(s): Z80.0 - Family history of malignant neoplasm of digestive organs (2) H. pylori infection: Code(s): A04.8 - Other specified bacterial intestinal infections (3) Hiatal hernia: Code(s): K44.9 - Diaphragmatic hernia without obstruction or gangrene Plan History of chronic H pylori. Patient is scheduled for surgery. Proceed as planned. Patient will need culture to differentiate the appropriate treatment for patient. Please schedule appointment after the procedure in the office. Continue current PPI therapy. Avoid dietary triggers in late night snacking. Staying upright for minimal 3 hours after meals discussed with patient. Patient is agreeable to this plan and verbalizes understanding of instructions. She was given the opportunity to ask questions and all questions answered. sample selector used during the visit. Thank you for allowing me to participate in her care Coding Level of Care Code Est Pt Level 3 (70192) Diagnoses FH: gastric cancer Z80.0 H. pylori infection A04.8 Hiatal hernia K44.9 Time Spent (min) 35 Comment 20 minutes spent with patient and additional 15 minutes spent reviewing her records
[2023-10-08 13:39] VITALS: BP 148/81; PULSE 67; BMI 43.9
== END 2023-10-08 14:16 | disposition home or self-care (01) ==
PROVIDERS: PCP Internal Medicine; Visit Provider Nurse Practitioner Family
DX: Z80.0 Family history of malignant neoplasm of digestive organs (principal); A04.8 Other specified bacterial intestinal infections; K44.9 Diaphragmatic hernia without obstruction or gangrene
CPT/HCPCS: 99213

== ENCOUNTER → 2023-10-08 13:20 | Outpatient (BNVA) | payer OTHER, SELFPAY | PROVIDERS: PCP Internal Medicine; Visit Provider Nurse Practitioner Family | DX: K44.9 Diaphragmatic hernia without obstruction or gangrene (principal); A04.8 Other specified bacterial intestinal infections; Z80.0 Family history of malignant neoplasm of digestive organs | CPT/HCPCS: 99212 ==

== ENCOUNTER 2023-10-22 06:25 | Day surgery (SDC) | payer OTHER, SELFPAY ==
[2023-10-17 11:20] VITALS: BMI 43.8
[2023-10-22 06:37] VITALS: BP 150/54; PULSE 60; RESP 19; TEMP 36.8; O2SAT 97
[2023-10-22 06:47] VITALS: BMI 45.8
[2023-10-22] MEDS: Lactated Ringers 1,000 ML 50 ML IVCONT (07:24)
--- NOTE | 2023-10-22 07:39 | HO.ANESPROP2 ---
[facility] Active Problems Active Problems: All Active Problems (Updated 10/17/23 @ 11:15 by Dorina Dooley RN) LUQ pain (Acute) FH: gastric cancer (Acute) Rectal bleeding (Acute) H. pylori infection (Acute) Knee pain (Acute) Abnormal ECG (Acute) Pre-op evaluation (Acute) Depression (Acute) Fibromyalgia (Acute) YOJANA on CPAP (Acute) Active asthma (Acute) Pre-diabetes (Acute) HTN (hypertension), benign (Acute) Migraine (Acute) Hiatal hernia (Acute) Hyperlipidemia (Acute) Morbid obesity (Acute) Past Medical History Medical History (Updated 10/17/23 @ 11:15 by Dorina Dooley RN) Pre-diabetes Migraine Elevated cholesterol Hiatal hernia Asthma Fibromyalgia Sleep apnea Depression HTN (hypertension) Family History Family History Mother Hypertension Arthritis Father No problems noted. Son No problems noted. Family history of problems with anesthesia: No Surgical History Surgical History Hx of colonoscopy History of esophagogastroduodenoscopy (EGD) Hx of hernia repair Hx of hysterectomy Hx of cholecystectomy History of Problems with Anesthesia: No Social History Social History Alcohol intake: never Patient Tobacco Use Status: Never used Tobacco Are you DNR?: No Advance Directives: No Advance Directives Information Provided: Yes Nutrition Risks: No Nutritional Risk Meds Allergies Allergy/AdvReac Type Severity Reaction Status Date / Time diclofenac Allergy Severe Hallucinati Verified 10/22/23 06:52 ons duloxetine [From CYMBALTA] Allergy Severe Hallucinati Verified 10/22/23 06:52 ons droperidol [DROPERIDOL] Allergy Intermediate dizzy Verified 10/22/23 06:52 Active Medications: Current Medications Lactated Ringer's (Lr) 1,000 mls @ 50 mls/hr IVCONT .Q20H JASON Last Admin: 10/22/23 07:24 Dose: 50 mls/hr Home Medications Medication Instructions Recorded Confirmed Last Taken Type albuterol (refill) 90 mcg inhalation 11/14/22 06/19/23 Unknown History mcg/actuation aerosol inhaler albuterol sulfate 90 mcg/actuation 2 puff inhalation QID PRN wheezing 11/14/22 06/19/23 Unknown History aerosol inhaler (Ventolin HFA) ascorbic acid (vitamin C) 500 mg PO 11/14/22 06/19/23 Unknown History tablet aspirin 81 mg tablet,delayed 81 mg PO DAILY 11/14/22 06/19/23 10/08/23 History release fluticasone propionate 110 1 puff inhalation BID 11/14/22 06/19/23 Unknown History mcg/actuation HFA aerosol inhaler (Flovent HFA) lisinopril 20 1 tab PO DAILY 11/14/22 06/19/23 Unknown History mg-hydrochlorothiazide 12.5 mg tablet montelukast 10 mg tablet 10 mg PO DAILY 11/14/22 06/19/23 Unknown History tolterodine 2 mg capsule,extended 2 mg PO DAILY 11/14/22 06/19/23 Unknown History release 24 hr topiramate 50 mg tablet 50 mg PO BID 11/14/22 06/19/23 Unknown History amitriptyline 25 mg tablet 25 mg PO BEDTIME 06/03/23 06/19/23 Unknown History citalopram 10 mg tablet 10 mg PO DAILY 06/03/23 06/19/23 Unknown History dicyclomine 10 mg capsule 10 mg PO QID 06/03/23 06/19/23 Unknown History sodium chloride 0.65 % nasal spray 1 spray intranasal congestion 06/03/23 06/19/23 Unknown History aerosol (Saline Mist) trospium 60 mg capsule,extended 0 mg PO 06/03/23 06/19/23 Unknown History release 24 hr amlodipine 5 mg tablet 5 mg PO DAILY 06/24/23 Unknown History Exam Height,Weight and Vital Signs: Height 5 ft 4 in Weight 121.018 kg Last Vital Signs Temp 98.3 F 10/22/23 06:37 Pulse 60 10/22/23 06:37 Resp 19 10/22/23 06:37 BP 150/54 H 10/22/23 06:37 Pulse Ox 97 10/22/23 06:37 O2 Del Method Room Air 10/22/23 06:37 Airway Mallampati Class: II TM Dist: >3cm Partial: Upper and Lower Heart: rrr Lungs: clear Assessment and Plan Final Anesthetic Review Family History of Problems with Anesthesia: No History of Problems with Anesthesia: No NPO: Yes ASA Class: III Final Preanesthetic Review: No Changes in Pt Med Stat, Meds/Allgs Chart Reviewed, Consent Obtained/Reviewed and Anes Risks/Benef Reviewed Patient Risk: High Procedure Risk: Low Anesthetic Plan Anesthetic Plan: MAC: Disposition: Standard PACU
--- NOTE | 2023-10-22 07:47 | MHC.SHP ---
Pre-Procedural Eval Section A Date of Service: 10/22/23 Section B Chief Complaint: Family history of malignant neoplasm of digestive Details of Present Illness: pos H pylori -FH stomach ca-maternal cousin Relevant Family History (Specify if Yes): Yes Relevant Social History: None Present Medications: see Short Stay Collaborative assessment Medical History: Significant History (Pre-diabetes Migraine Elevated cholesterol Hiatal hernia Asthma Fibromyalgia Sleep apnea Depression HTN (hypertension)) History of Previous Operations: Relevant previous surgery/procedure and date(s) (Hx of colonoscopy History of esophagogastroduodenoscopy (EGD) Hx of hernia repair Hx of hysterectomy Hx of cholecystectomy) Allergies: Allergies Allergy/AdvReac Type Severity Reaction Status Date / Time diclofenac Allergy Severe Hallucinati Verified 10/22/23 06:52 ons duloxetine [From CYMBALTA] Allergy Severe Hallucinati Verified 10/22/23 06:52 ons droperidol [DROPERIDOL] Allergy Intermediate dizzy Verified 10/22/23 06:52 Review of Systems Sugical H&P ROS: Negative: Constitution, Cardiovascular, Respiratory, Neurological, Psychiatric, Hem-Onc, Allergic/Immunologic, Gastrointestinal, Genitourinary, Musculoskeletal, Integumentary, Endocrine and Eyes/Ears/Nose/Throat Exam Surgical H&P Exam: Normal: HEENT, Normal: Heart, Normal: Lungs, Normal: Extremities, Normal: Abdomen, Normal: Skin and Normal: Neurological Plan Diagnosis/Plan: Unchanged I have reviewed the history and physical and performed a pertinent physical examination on my patient. No changes have occurred unless specified. Time Spent With Patient Time: Total time managing care of this patient today ____ minutes.
--- NOTE | 2023-10-22 07:50 | W.PM.OPN ---
Operative Note Operative Note Date of Service: 10/22/23 Narrative: Procedure Description: EGD Indication: hx of h pylori Anesthesia: MAC FLEXIBLE TRANSORAL UPPER GASTROINTESTINAL ENDOSCOPY UPPER ENDOSCOPY Consent: Indications for the procedure and potential complications of bleeding, perforation, reaction to medications and missed diagnosis were discussed with the patient and informed consent was obtained. Instrument: Olympus GIF H 190 J mid size upper endoscope Monitoring: Vital signs and clinical assessment, continuous EKG monitoring, Pulse oximetry, Carbon Dioxide monitoring and blood pressure monitoring were done throughout the procedure. Procedure: The patient was placed in the left lateral decubitis position and pre-procedure medications were administered and a bite block was placed. The endoscope was inserted into the mouth and advanced under direct vision to the third part of duodenum. A careful inspection was made as the upper endoscope was withdrawn including a retroflexed examination of the proximal stomach; Findings and interventions are described below. Findings: Larynx:normal Esophagus: GE junction at 40 cm, diaphragm hiatus at 40 cm, mild esophagitis at GEJ, bx taken Stomach: Patchy gastric erythema. Biopsies were obtained as well as samples for culture/sens. Grade 2 flap valve on retroflexed examination of the cardia. There was a lipoma noted in esther distal body on the greater curve side. Duodenum: Mild duodenitis, bx taken Intervention: Biopsies as noted above Impression/Findings: duodenitis gastritis esophagitis PLAN: await results,
[2023-10-22 08:05] VITALS: BP 142/57; PULSE 68; RESP 20; TEMP 36.1; O2SAT 97
[2023-10-22 08:20] VITALS: BP 130/52; PULSE 64; RESP 18; TEMP 36.2; O2SAT 99
[2023-11-13 15:02] LABS: H Pylori Cult Source TISSUE
== END 2023-10-22 09:20 | disposition home or self-care (01) ==
PROVIDERS: PCP Internal Medicine; Visit Provider Internal Medicine Gastroenterology
PROC: 0DJ08ZZ Inspection of Upper Intestinal Tract, Via Natural or Artificial Opening Endoscopic (ICD-10-PCS; CPT 43235; principal; 2023-10-22 07:30)
DX: K20.80 Other esophagitis without bleeding (principal); K29.50 Unspecified chronic gastritis without bleeding; B96.81 Helicobacter pylori [H. pylori] as the cause of diseases classified elsewhere; Z80.0 Family history of malignant neoplasm of digestive organs; K29.80 Duodenitis without bleeding; K44.9 Diaphragmatic hernia without obstruction or gangrene; R73.03 Prediabetes; I10 Essential (primary) hypertension; E78.00 Pure hypercholesterolemia, unspecified; J45.909 Unspecified asthma, uncomplicated; M79.7 Fibromyalgia; G47.30 Sleep apnea, unspecified; F32.A Depression, unspecified; Z90.49 Acquired absence of other specified parts of digestive tract; Z79.51 Long term (current) use of inhaled steroids; Z79.82 Long term (current) use of aspirin; Z79.899 Other long term (current) drug therapy; Z88.8 Allergy status to other drugs, medicaments and biological substances
CPT/HCPCS: 43239; 36415; 87081; 88305; 88342

== ENCOUNTER → 2023-10-22 06:25 | Outpatient (BNV) | payer OTHER, SELFPAY | PROVIDERS: PCP Internal Medicine; Visit Provider Internal Medicine Gastroenterology | DX: K29.90 Gastroduodenitis, unspecified, without bleeding (principal); K21.00 Gastro-esophageal reflux disease with esophagitis, without bleeding | CPT/HCPCS: 43239 ==

== ENCOUNTER → 2023-11-27 16:00 | Outpatient (BNVA) | payer OTHER, SELFPAY | PROVIDERS: PCP Internal Medicine; Visit Provider Physician Assistant ==

== ENCOUNTER 2023-12-12 10:13 | Outpatient (AMB) | payer OTHER, SELFPAY ==
--- NOTE | 2023-12-12 12:31 | A.OFFVIS_ITS ---
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* Allergies diclofenac Allergy (Severe, Verified 12/12/23 12:32) Hallucinations duloxetine [From CYMBALTA] Allergy (Severe, Verified 12/12/23 12:32) Hallucinations droperidol [DROPERIDOL] Allergy (Intermediate, Verified 12/12/23 12:32) dizzy Medication List - Last Reconciled 12/12/23 by Raheem Aden MD albuterol (refill) 90 mcg/actuation mcg inhalation albuterol sulfate 90 mcg/actuation (Ventolin HFA) 2 puffs inhalation QID PRN amitriptyline 25 mg PO BEDTIME amlodipine 5 mg PO DAILY ascorbic acid (vitamin C) PO aspirin 81 mg PO DAILY bismuth subsalicylate 2 tabs PO QID 14 days cholecalciferol (vitamin D3) 50 mcg PO DAILY citalopram 10 mg PO DAILY dicyclomine 10 mg PO QID fluticasone propionate 110 mcg/actuation (Flovent HFA) 1 puff inhalation BID iron,carbonyl-vitamin C 65 mg iron- 125 mg (Vitron-C) 1 tab PO BEDTIME lisinopril-hydrochlorothiazide 20-12.5 mg 1 tab PO DAILY metronidazole 1,000 mg (2 x 500 mg) PO BID montelukast 10 mg PO DAILY omeprazole 20 mg PO BID 14 days sodium chloride 0.65% (Saline Mist) 1 spray intranasal tetracycline 1,000 mg (2 x 500 mg) PO Q12H thiamine HCl (vitamin B1) 100 mg PO DAILY tolterodine ER 2 mg PO DAILY topiramate 50 mg PO BID trospium ER 0 mg PO HPI TV Consult/Transfer 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* HPI Details Start time: 12.02pm, End time: 1.12pm ?I spent 60 minutes speaking with the patient on the phone plus an additional 10 minutes reviewing and updating records for a total of 70 minutes HPI Comments History of Present Illness Details Overall weight loss: 48.9 lbs, or 13.2% TBWL Is doing 2 Orgain protein shakes (2 scoops each in water), 2 Celebrate protein bars and one meal Exercise: doing treadmill 4x/week for 300 calories [facility] Medical History (Updated 12/12/23 @ 12:46 by Raheem Aden MD) Stress incontinence Pre-diabetes Migraine Elevated cholesterol Hiatal hernia Asthma Fibromyalgia Sleep apnea Depression HTN (hypertension) Surgical History Hx of colonoscopy History of esophagogastroduodenoscopy (EGD) Hx of hernia repair Hx of hysterectomy Hx of cholecystectomy Family History Mother Hypertension Arthritis Father No problems noted. Son No problems noted. Social History Alcohol intake: never Patient Tobacco Use Status: Never used Tobacco Assessment & Plan Assessment & Plan (1) Morbid obesity: Code(s): E66.01 - Morbid (severe) obesity due to excess calories Plan: 1. Plan for lap sleeve gastrectomy including upper GI endoscopy. All tests has been completed and reviewed and the patient is cleared for the surgery. ?If diaphragmatic or ventral hernias are present at time of surgery, these will be repaired laparoscopically as well. Risks and complications were discussed in detail including possible conversion to an open procedure, anastomotic leak, bleeding requiring transfusion, small bowel obstruction, , DVT and pulmonary embolism, cardiac, or pulmonary complications, as intermodal customer service complications such as anastomotic ulcer, insufficient weight loss and vitamin deficiencies. I emphasized the importance of close follow-up, adherence to instructions and good communication. So far she has proven to be an excellent communicator and very compliant with all our directions accomplishing a great weight loss. I believe that she is an excellent candidate and she is ready. 2. Please change the meal plan to one Orgain shake (ONE scoop in 8oz water or unsweetened almond milk) at 11am-1pm, another Orgain protein shake (TWO scoops in 8oz water or low fat unsweetened almond milk) at 2pm-4pm, dinner at 5pm (10 forks of of protein and 10 forks of salad or vegetables) and 2 Celebrate protein bars at 6pm-8pm and 9pm-11pm. 3. Buy a stationary at home from [employer]. Start stationary bike at a resistance level of 0.0 Increase level by 1.0 every 3 min to a max level of 6.0. Stay at this level for 3 min and then return to level .0 and repeat same steps until 100 calories are burned. Do this 3 times per day on separate times for a total of 300 calories per day. Burn 300 calories per day, daily. Goal is to burn 2000 calories per week on exercise 4. Send me weight measurements weekly on Telehealth Telehealth Location of provider rendering services: practice address Location of patient: address on file Patient Identification confirmed using: Name, : Yes Telehealth method: voice only Patient verbally consented to treatment: Yes Patient verbally consented to billing insurance company: Yes Patient informed of any privacy concerns related to visit: Yes Minutes spent on Phone/Video with Pt.: 70 Coding Level of Care Code Tele Est Pt Level 5 (82640) Diagnoses Morbid obesity E66.01 Time Spent (min) 70 Comment with a Vincentian speaking juvenile correctional officer
[2023-12-12 12:48] VITALS: BMI 44.0
== END 2023-12-12 13:16 | disposition home or self-care (01) ==
LOC: HO.HBS 10:13
PROVIDERS: PCP Internal Medicine; Visit Provider Surgery
DX: E66.01 Morbid (severe) obesity due to excess calories (principal)
CPT/HCPCS: 99215

== ENCOUNTER → 2023-12-12 10:13 | Outpatient (BNVA) | payer OTHER, SELFPAY | PROVIDERS: PCP Internal Medicine; Visit Provider Surgery ==

== ENCOUNTER 2023-12-23 08:28 | Outpatient (AMB) | payer OTHER, SELFPAY ==
--- NOTE | 2023-12-23 11:11 | MHC.OFFVISWM ---
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* Allergies diclofenac Allergy (Severe, Verified 12/23/23 11:13) Hallucinations duloxetine [From CYMBALTA] Allergy (Severe, Verified 12/23/23 11:13) Hallucinations droperidol [DROPERIDOL] Allergy (Intermediate, Verified 12/23/23 11:13) dizzy Medication List - Last Reconciled 12/23/23 by Raheem Aden MD albuterol (refill) 90 mcg/actuation mcg inhalation albuterol sulfate 90 mcg/actuation (Ventolin HFA) 2 puffs inhalation QID PRN amitriptyline 25 mg PO BEDTIME amlodipine 5 mg PO DAILY ascorbic acid (vitamin C) PO aspirin 81 mg PO DAILY bismuth subsalicylate 2 tabs PO QID 14 days cholecalciferol (vitamin D3) 50 mcg PO DAILY citalopram 10 mg PO DAILY dicyclomine 10 mg PO QID fluticasone propionate 110 mcg/actuation (Flovent HFA) 1 puff inhalation BID iron,carbonyl-vitamin C 65 mg iron- 125 mg (Vitron-C) 1 tab PO BEDTIME lisinopril-hydrochlorothiazide 20-12.5 mg 1 tab PO DAILY montelukast 10 mg PO DAILY ondansetron 4 mg PO Q12H pantoprazole 40 mg PO DAILY polyethylene glycol 3350 (Miralax) 17 grams PO DAILY sodium chloride 0.65% (Saline Mist) 1 spray intranasal sucralfate 10 mL PO BID thiamine HCl (vitamin B1) 100 mg PO DAILY tolterodine ER 2 mg PO DAILY topiramate 50 mg PO BID trospium ER 0 mg PO HPI TV 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* HPI Details Start time: 10.56am, End time: 11.36am ?I spent 35 minutes speaking with the patient on the phone plus an additional 5 minutes reviewing and updating records for a total of 40 minutes HPI Comments History of Present Illness Details Overall weight loss: 49.4lbs, or 16.2% TBWL lease change the meal plan to one Orgain shake (ONE scoop in 8oz water or unsweetened almond milk) at 11am-1pm, another Orgain protein shake (TWO scoops in 8oz water or low fat unsweetened almond milk) at 2pm-4pm, dinner at 5pm (10 forks of of protein and 10 forks of salad or vegetables) and 2 Celebrate protein bars at 6pm-8pm and 9pm-11pm. [facility] Medical History (Updated 12/12/23 @ 12:46 by Raheem Aden MD) Stress incontinence Pre-diabetes Migraine Elevated cholesterol Hiatal hernia Asthma Fibromyalgia Sleep apnea Depression HTN (hypertension) Surgical History Hx of colonoscopy History of esophagogastroduodenoscopy (EGD) Hx of hernia repair Hx of hysterectomy Hx of cholecystectomy Family History Mother Hypertension Arthritis Father No problems noted. Son No problems noted. Social History Alcohol intake: never Patient Tobacco Use Status: Never used Tobacco Assessment & Plan Assessment & Plan (1) Morbid obesity: Code(s): E66.01 - Morbid (severe) obesity due to excess calories Plan: 1. Plan for lap sleeve gastrectomy including upper GI endoscopy. All tests has been completed and reviewed and the patient is cleared for the surgery. ?If diaphragmatic or ventral hernias are present at time of surgery, these will be repaired laparoscopically as well. Risks and complications were discussed in detail including possible conversion to an open procedure, anastomotic leak, bleeding requiring transfusion, small bowel obstruction, , DVT and pulmonary embolism, cardiac, or pulmonary complications, as retirement complications such as anastomotic ulcer, insufficient weight loss and vitamin deficiencies. I emphasized the importance of close follow-up, adherence to instructions and good communication. So far she has proven to be an excellent communicator and very compliant with all our directions accomplishing a great weight loss. I believe that she is an excellent candidate and she is ready. 2. Preop prescriptions were provided and explained the purpose of each one. Need to be purchased preop. Start Pantoprazole now as you get it from the pharmacy, 1 pill per day. Sucralfate and Zofran are for after surgery as needed. 3. Bowel prep: please do 7 packets ?of Miralax mixing each one with a an 8oz glass of water, crystal light, gatorade zero, or propel ?on 12/30/23 and the same amount on 12/31/23. The Miralax you begin with one packet at a time in 8oz water or crystal light, gatorade zero, or propel ?as early in the day as you can and you do them back to back until you finish them. Continue the protein shakes during? the bowel prep. 4. Needs to purchase 1oz medicine cups . 5. Needs to purchase Children's liquid Tylenol for postop pain control. 6. She needs to stop the aspirin today. Avoid aspirin, motrin, Advil, Aleve, Ibuprofen, Naproxyn. Tylenol is OK. Continue all other medications until the day of surgery 7. She needs to purchase the Celebrate 4:1 protein shakes from the hospital's gift shop. 8. Will do basic preop blood work-up any day between Saturday12/24/23 and Saturday12/27/23 fasting for 12 hours and is scheduled to see the Anesthesiologist prior to the day of surgery. 9. Measure your blood pressure daily in the morning with your blood pressure monitor. If blood pressure is: Below 120/70 do not take the Amlodipine or Lisinopril 121/71 to 130/80: Take HALF Amlodipine and HALF Lisinopril Over 131/81: Take ONE Amlodipine and ONE Lisinopril 10. Importance of adherence to postop folllow-up and recommendations was underscored and she understands that. 11. Stop food and bars as of tomorrow 05/02/21 and continue with 4 ?Pure protein shakes (1/2 scoop in 8oz almond milk) at 9am-11am, 12pm-2pm, 3pm-5pm, 6pm-8pm and one more Pure protein shake with ONE scoop in 8oz of almond milk at 9pm-11pm 11. Stop food and bars as of tomorrow 05/02/21 and continue with 4 ?Pure protein shakes (1/2 scoop in 8oz almond milk) at 7am-9am, 10am-12pm, 1pm-3pm, 4pm-6pm and one more Pure protein shake with ONE scoop in 8oz of almond milk at 7pm-9pm 11. Stop food and bars as of Saturday01/01/22 and continue with 4 ?Pure protein shakes (1/2 scoop in 8oz almond milk) at 8am-10am, 11am-1pm, 2pm-4pm, 5pm-7pm and one more Pure protein shake with ONE scoop in 8oz of almond milk at 8pm-10pm 12. No soups, broths or V8 13. The patient's?medical?history has been reviewed and they are considered low risk for post op DVT and therefore DVT prophylaxis is not considered necessary. Travel after surgery was reviewed. The patient has not disclosed any travel plans during the first 30 days after surgery and they have been advised that within the first 30 days after surgery any bus, plane, train or car travel over 2 hours in duration is contraindicated due to the possibility of developing blood clots from immobility. Any travel, needs to include periods of ambulation of 10 minutes in duration every 2 hours.? Patient was instructed to discuss any plans for travel during this period with their bariatric surgeon.? 14. Use your CPAP daily and bring it to the hospital with your mask 15. Please take at the day of surgery the following medications: Amlodipine and Lisinopril/HCTZ based on the blood pressure readings which I described above. 16. Stop any control pills and don't use them for one month after surgery 17. Absolutely no smoking or vaping, or marijuana until the surgery and for at least the first 4 weeks. Only nicotine patches are allowed. 18. Send me weight measurements on Saturday12/30/23 and then on Saturday01/01/24, the day of surgery before you go to the hospital. 19. Avoid any steroids by mouth for any reason. Let me know if someone prescribes them to you 20. These instructions supersede anything else you read in the handbook, anything you watched in videos or classes or you were told by any other provider. If there is any conflict, you follow the above instructions and nothing else. Orders: Orders Comprehensive Met. Panel Today E66.01 - Morbid (severe) obesity due to excess calories, E78.5 - Hyperlipidemia, unspecified, G47.33 - Obstructive sleep apnea (adult) (pediatric), I10 - Essential (primary) hypertension, Z99.89 - Dependence on other enabling machines and devices TSH reflex Free T4 Today E66.01 - Morbid (severe) obesity due to excess calories, E78.5 - Hyperlipidemia, unspecified, G47.33 - Obstructive sleep apnea (adult) (pediatric), I10 - Essential (primary) hypertension, Z99.89 - Dependence on other enabling machines and devices Type and Screen Today E66.01 - Morbid (severe) obesity due to excess calories, E78.5 - Hyperlipidemia, unspecified, G47.33 - Obstructive sleep apnea (adult) (pediatric), I10 - Essential (primary) hypertension, Z99.89 - Dependence on other enabling machines and devices Partial Thromboplastin Time Today E66.01 - Morbid (severe) obesity due to excess calories, E78.5 - Hyperlipidemia, unspecified, G47.33 - Obstructive sleep apnea (adult) (pediatric), I10 - Essential (primary) hypertension, Z99.89 - Dependence on other enabling machines and devices Complete Blood Count Auto Diff Today E66.01 - Morbid (severe) obesity due to excess calories, E78.5 - Hyperlipidemia, unspecified, G47.33 - Obstructive sleep apnea (adult) (pediatric), I10 - Essential (primary) hypertension, Z99.89 - Dependence on other enabling machines and devices Insulin Today E66.01 - Morbid (severe) obesity due to excess calories, E78.5 - Hyperlipidemia, unspecified, G47.33 - Obstructive sleep apnea (adult) (pediatric), I10 - Essential (primary) hypertension, Z99.89 - Dependence on other enabling machines and devices Prothrombin Time INR Today E66.01 - Morbid (severe) obesity due to excess calories, E78.5 - Hyperlipidemia, unspecified, G47.33 - Obstructive sleep apnea (adult) (pediatric), I10 - Essential (primary) hypertension, Z99.89 - Dependence on other enabling machines and devices C Reactive Protein Today E66.01 - Morbid (severe) obesity due to excess calories, E78.5 - Hyperlipidemia, unspecified, G47.33 - Obstructive sleep apnea (adult) (pediatric), I10 - Essential (primary) hypertension, Z99.89 - Dependence on other enabling machines and devices Lipid Panel Today E66.01 - Morbid (severe) obesity due to excess calories, E78.5 - Hyperlipidemia, unspecified, G47.33 - Obstructive sleep apnea (adult) (pediatric), I10 - Essential (primary) hypertension, Z99.89 - Dependence on other enabling machines and devices Hemoglobin A1c Today E66.01 - Morbid (severe) obesity due to excess calories, E78.5 - Hyperlipidemia, unspecified, G47.33 - Obstructive sleep apnea (adult) (pediatric), I10 - Essential (primary) hypertension, Z99.89 - Dependence on other enabling machines and devices Medications: New pantoprazole 40 mg PO DAILY 90 tabs 0RF K21.9 - Gastro-esophageal reflux disease without esophagitis sucralfate 10 mL PO BID 600 mL 2RF K21.9 - Gastro-esophageal reflux disease without esophagitis polyethylene glycol 3350 (Miralax) Mix each packet with 8oz of water, Crystal light, or Gatorade zero, or Propel and do 7 packets on 12/30/23 and another 7 packets on 12/31/23 17 grams PO DAILY 14 ea 0RF Z01.818 - Encounter for other preprocedural examination ondansetron Only take one every 12 hours as needed if you have nausea 4 mg PO Q12H 20 tabs 0RF nausea and vomiting R11.0 - Nausea Telehealth Telehealth Location of provider rendering services: practice address Location of patient: address on file Patient Identification confirmed using: Name, : Yes Telehealth method: voice only Patient verbally consented to treatment: Yes Patient verbally consented to billing insurance company: Yes Patient informed of any privacy concerns related to visit: Yes Minutes spent on Phone/Video with Pt.: 40 Coding Level of Care Code Tele Est Pt Level 4 (16793) Diagnoses Morbid obesity E66.01 Time Spent (min) 40 Comment With a Yi speaking hydrological technical officer
[2023-12-23 11:35] VITALS: BMI 44.0
== END 2023-12-23 11:37 | disposition home or self-care (01) ==
LOC: HO.HBS 08:29
PROVIDERS: PCP Internal Medicine; Visit Provider Surgery
DX: E66.01 Morbid (severe) obesity due to excess calories (principal)
CPT/HCPCS: 99214

== ENCOUNTER → 2023-12-23 08:28 | Outpatient (BNVA) | payer OTHER, SELFPAY | PROVIDERS: PCP Internal Medicine; Visit Provider Surgery ==

== ENCOUNTER 2023-12-26 11:58 | Emergency (ER) | payer OTHER, SELFPAY ==
--- NOTE | ~2023-12-26 | XR_ITS ---
EXAMINATION: XR CHEST CLINICAL INFORMATION: Chest pain. COMPARISON: Chest radiograph dated 12/07/2022. TECHNIQUE: 2 views of the chest were obtained. FINDINGS: The trachea is in normal anatomic position. Heart size remains normal. There is no consolidation within either lung. No pleural effusion or pneumothorax. There are cholecystectomy clips. XR/XR chest 2V IMPRESSION: No acute cardiopulmonary disease.
--- NOTE | 2023-12-26 12:02 | ECG_ITS ---
Test Reason : CHEST PAIN Blood Pressure : / mmHG Vent. Rate : 060 BPM Atrial Rate : 060 BPM P-R Int : 166 ms QRS Dur : 090 ms QT Int : 412 ms P-R-T Axes : 024 -07 008 degrees QTc Int : 412 ms Normal sinus rhythm Moderate voltage criteria for LVH, may be normal variant ( R in aVL , Kofi product ) Borderline ECG When compared with ECG of 07-DEC-2022 10:36, No significant change was found Referred By: Generic ED Physician Electronically Signed By:KYMBERLY MULLINS
--- NOTE | 2023-12-26 13:05 | ED_ITS ---
HPI - General Adult General Chief complaint: Chest Pain Stated complaint: Chest pain, high BP, dizziness Time Seen by Provider: 12/26/23 14:09 History of Present Illness HPI narrative: The patient is a 58-year-old woman with a history of obesity who was scheduled to have a lap sleeve gastrectomy at this hospital next week. She comes to the emergency room because she has been feeling unwell for the last 4 days. She has had total body pain for the last 4 days. She says that she feels as if every bone in her body is hurting. She also has a mild headache and some pain on the left side of her neck. Today her blood pressure seemed somewhat high so she called her PCP's office. When she spoke to her PCP she also mentioned having chest pain in addition to her total body pain and so she was advised to come to the emergency room. She had also been feeling dizzy. She does not think she has had a fever. She has had no nausea or vomiting. No diarrhea. No abdominal pain. She has chronic left knee pain that is worse than usual as well. She also has some pain in her right knee. She says that because of the symptoms she has taken a COVID test at home every day for the last 3 days and they have all been negative. Related Data Home Medications Medication Instructions Recorded Confirmed albuterol sulfate 90 mcg/actuation 2 puff inhalation QID PRN wheezing 11/14/22 12/24/23 aerosol inhaler (Ventolin HFA) aspirin 81 mg tablet,delayed 81 mg PO DAILY 11/14/22 12/24/23 release fluticasone propionate 110 1 puff inhalation BID 11/14/22 12/12/23 mcg/actuation HFA aerosol inhaler (Flovent HFA) lisinopril 20 1 tab PO DAILY 11/14/22 12/24/23 mg-hydrochlorothiazide 12.5 mg tablet montelukast 10 mg tablet 10 mg PO DAILY 11/14/22 12/24/23 tolterodine 2 mg capsule,extended 2 mg PO DAILY 11/14/22 12/24/23 release 24 hr topiramate 50 mg tablet 50 mg PO BID 11/14/22 12/24/23 amitriptyline 25 mg tablet 25 mg PO BEDTIME 06/03/23 12/24/23 citalopram 10 mg tablet 10 mg PO DAILY 06/03/23 12/24/23 dicyclomine 10 mg capsule 10 mg PO QID 06/03/23 12/24/23 sodium chloride 0.65 % nasal spray 1 spray intranasal DAILY congestion 06/03/23 12/24/23 aerosol (Saline Mist) trospium 60 mg capsule,extended 60 mg PO DAILY 06/03/23 12/24/23 release 24 hr amlodipine 5 mg tablet 5 mg PO DAILY 06/24/23 12/24/23 ascorbic acid (vitamin C) 100 mg 100 mg PO DAILY 12/24/23 12/24/23 tablet Previous Rx's Medication Instructions Recorded iron,carbonyl 65 mg-vitamin C 125 1 tab PO BEDTIME #30 tabs 12/26/22 mg tablet,delayed release (Vitron-C) cholecalciferol (vitamin D3) 50 50 mcg PO DAILY #30 caps 06/24/23 mcg (2,000 unit) capsule bismuth subsalicylate 262 mg 2 tab PO QID 14 days #112 tabs 11/18/23 chewable tablet ondansetron 4 mg disintegrating 4 mg PO Q12H nausea and vomiting 12/23/23 tablet #20 tabs pantoprazole 40 mg tablet,delayed 40 mg PO DAILY #90 tabs 12/23/23 release polyethylene glycol 3350 17 gram 17 g PO DAILY #14 ea 12/23/23 oral powder packet (Miralax) sucralfate 100 mg/mL oral 10 ml PO BID #600 mL 12/23/23 suspension thiamine HCl (vitamin B1) 100 mg 100 mg PO DAILY #90 tabs 12/25/23 tablet Allergies Allergy/AdvReac Type Severity Reaction Status Date / Time diclofenac Allergy Severe Hallucinati Verified 12/23/23 11:13 ons duloxetine [From CYMBALTA] Allergy Severe Hallucinati Verified 12/23/23 11:13 ons droperidol [DROPERIDOL] Allergy Intermediate dizzy Verified 12/23/23 11:13 Review of Systems 2 Review of Systems: Yes all other systems are reviewed and are negative [facility] Past Medical History Medical History (Updated 12/26/23 @ 16:04 by Lewis Pena MD) Arthritis Hx of transfusion of packed red blood cells Anemia Vertigo GERD (gastroesophageal reflux disease) Stress incontinence Pre-diabetes Migraine Elevated cholesterol Hiatal hernia Asthma Fibromyalgia Sleep apnea Depression HTN (hypertension) Surgical History Hx of colonoscopy History of esophagogastroduodenoscopy (EGD) Hx of hernia repair Hx of hysterectomy Hx of cholecystectomy Family History Family History Mother Hypertension Arthritis Father No problems noted. Son No problems noted. 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) Alcohol intake: never Patient Tobacco Use Status: Never used Tobacco Smoked in Last 30 Days: No Use of substances other than those prescribed or required for medical reasons: No Advance Directives: No Advance Directives Information Provided: No Patient : No Physical Exam ED Vital Signs: Vital Signs - 24 hr 12/26/23 13:07 12/26/23 14:12 12/26/23 15:35 Temperature 98.2 F 98.0 F 97.9 F Pulse Rate 65 67 58 Respiratory Rate 16 14 16 Blood Pressure 145/80 H 151/70 H 153/73 H Pulse Oximetry 100 100 100 Oxygen Delivery Method Room Air Room Air Room Air BMI result Body Mass Index 43.7 Const Other: The patient is awake and alert. She is pleasant cooperative. She does not appear in acute distress in any way. She does not seem short of breath or obviously uncomfortable. She did seem somewhat sad and tearful however. HENMT Other: Face is symmetrical. The pharynx is unremarkable. Mucous membranes are moist. Tongue is midline. The facial exam is essentially normal. Eyes Other: Pupils are round equal, conjunctivae are clear, extraocular movements intact Neck Other: Neck is supple, no JVD, no cervical adenopathy Resp Other: Lungs are clear bilaterally. No increased work of breathing. Cardio Other: She has a regular rate and rhythm with no murmur. GI Other: Abdomen is soft and nontender. Skin Other: Skin is dry and unremarkable. No erythema. No rash. Neuro Other: The patient is awake and alert and appropriate. Mental status is normal. Cranial nerves are grossly intact. She moves her extremities with symmetrical strength. She seems grossly neurologically intact. Extrem Other: No calf swelling or tenderness. No calf asymmetry. No peripheral edema. She has no deformities to her extremities. She has tenderness to both knees, the tenderness of the left knee is greater than the tenderness of the right knee. She is able to move both knees reasonably well although she has some discomfort with bending the left knee. Course Course Course Narrative: This is a rapid medical exam: Additional HPI, ROS, PE not included below will be deferred to primary provider. Patient is a 58-year-old female with history of HTN, asthma, fibromyalgia, migraines, high cholesterol, anemia, GERD presenting to the ED with complaint of chest pain since 9am today. Radiates to neck and head. Describes as someone sitting on her chest. Plan: EKG, labs, CXR Medications Administered Discontinued Medications Generic Name Dose Route Start Last Admin Trade Name Freq PRN Reason Stop Dose Admin Acetaminophen 975 mg 12/26/23 14:24 12/26/23 14:31 Acetaminophen 325 Mg Tablet PO 12/26/23 14:25 975 mg ONCE ONE Administration Ketorolac Tromethamine 30 mg 12/26/23 14:24 12/26/23 14:31 Ketorolac Tromethamine 30 Mg/Ml Vial IM 12/26/23 14:25 30 mg ONCE ONE Administration Medical Decision Making Medical Decision Making MDM Narrative: The patient has had what she describes as total body pain and diffuse bony pain for 4 days. Her pains include chest pain but I do not feel her description of the symptoms are significantly suggestive of an acute coronary syndrome. None of her symptoms are suggestive of a pulmonary embolism. Your testing in the emergency room is extremely reassuring. Specifically her viral swabs are negative and her inflammatory markers are unremarkable. She was given a dose of ketorolac and acetaminophen. She was reassured. She seemed comfortable being discharged. Lab Data 12/26/23 13:22 12/26/23 13:22 Labs: Lab Results 12/26/23 12/26/23 Range/Units 13:22 14:32 WBC 4.6 L (4.8-10.8) X10*3/uL RBC 4.96 (4.20-5.50) X10*6/uL Hgb 12.1 (12.0-16.0) g/dl Hct 38.1 (37.0-47.0) % MCV 76.8 L (80.0-98.0) fL MCH 24.4 L (27.0-33.0) pg MCHC 31.8 (31.0-35.0) g/dl RDW 15.3 (11.0-16.0) % Plt Count 241 (160-400) X10*3/uL MPV 10.5 (9.4-12.3) fL Immature Gran % (Auto) 0.0 (0.0-0.4) % Neut % (Auto) 58.1 (45-73) % Lymph % (Auto) 31.9 (20-40) % Davis % (Auto) 7.4 (2-11) % Eos % (Auto) 2.2 (0-4) % Baso % (Auto) 0.4 (0-2) % Lymph # (Auto) 1.5 (1.2-4.9) X10*3/uL Davis # (Auto) 0.3 (0.1-1.2) X10*3/uL Eos # (Auto) 0.1 (0.0-0.4) X10*3/uL Baso # (Auto) 0.0 (0.0-0.2) X10*3/uL Abs Immat Gran (auto) 0.00 (0.00-0.03) X10*3/uL Absolute Neuts (auto) 2.7 (2.0-8.3) x10*3/uL Absolute Nucleated RBC 0.000 (0.0-0.012) X10*3/uL Nucleated RBC % (auto) 0.0 (0.0-0.2) /100WBC ESR 16 (0-20) MM/HR PT 12.0 (11.1-13.3) SEC INR 1.0 (0.9-1.1) Sodium 139 (135-145) mmol/L Potassium 3.7 (3.3-5.1) mmol/L Chloride 103 (96-108) mmol/L Carbon Dioxide 27 (22-29) mmol/L Anion Gap 13 (12-20) BUN 10 (9-16) mg/dL Creatinine 0.83 (0.5-1.4) mg/dL Estim Creat Clear Calc 94.4 Estimated GFR > 60 Random Glucose 84 (60-115) mg/dL Calcium 9.4 (8.4-10.2) mg/dL Total Bilirubin 0.6 (0.0-1.0) mg/dL AST 20 (5-31) U/L ALT 16 (0-31) U/L Alkaline Phosphatase 61 (39-117) U/L Troponin I High Sens < 2.7 (<3.5-17.0) ng/L C-Reactive Protein 0.29 (< or = 0.50) mg/dL B-Natriuretic Peptide 15 (<100) pg/mL Total Protein 7.8 (6.5-8.0) g/dL Albumin 4.0 (3.5-5.0) g/dL Lipase 19 (8-78) U/L Influenza Type A (PCR) NEGATIVE (Negative) Influenza Type B (PCR) NEGATIVE (Negative) RSV RNA Qual (PCR) NEGATIVE (Negative) SARS-CoV-2 RNA (RT-PCR) NEGATIVE (Negative) Independent Interpretation I performed an independent interpretation of an: EKG Interpretation: EKG at 12:08 shows normal sinus rhythm at 60 beats per minute. No ischemic changes. No change from previous EKG. Discharge Plan Discharge Clinical Impression: Total body pain Patient Disposition: Home, Self-Care Additional Instructions: Your testing in the emergency room today is very reassuring. I do not find anything that makes me think a dangerous process might be at work. Please rest and take it easy for the next couple of days. Use acetaminophen as needed for pain. Follow up with your regular doctor. Stay in touch with their office for additional advice as needed over the phone. Return to the emergency room if worse. Prescriptions: No Action Vitron-C 65 mg iron- 125 mg tablet,delayed release (DR/EC) 1 tab PO BEDTIME Qty: 30 5RF cholecalciferol (vitamin D3) 50 mcg (2,000 unit) capsule 50 mcg PO DAILY Qty: 30 5RF bismuth subsalicylate 262 mg tablet,chewable 2 tab PO QID 14 Days Qty: 112 0RF thiamine HCl (vitamin B1) 100 mg tablet 100 mg PO DAILY Qty: 90 1RF ascorbic acid (vitamin C) 100 mg Tablet 100 mg PO DAILY albuterol sulfate [Ventolin HFA] 90 mcg/actuation HFA aerosol inhaler 2 puff inhalation QID PRN (Reason: wheezing) montelukast 10 mg tablet 10 mg PO DAILY aspirin 81 mg tablet,delayed release (DR/EC) 81 mg PO DAILY topiramate 50 mg tablet 50 mg PO BID tolterodine 2 mg capsule,extended release 24hr 2 mg PO DAILY lisinopril-hydrochlorothiazide 20-12.5 mg tablet 1 tab PO DAILY fluticasone propionate [Flovent HFA] 110 mcg/actuation HFA aerosol inhaler 1 puff inhalation BID amitriptyline 25 mg tablet 25 mg PO BEDTIME citalopram 10 mg tablet 10 mg PO DAILY Saline Mist 0.65 % aerosol,spray 1 spray intranasal DAILY trospium 60 mg capsule,extended release 24hr 60 mg PO DAILY dicyclomine 10 mg capsule 10 mg PO QID amlodipine 5 mg tablet 5 mg PO DAILY pantoprazole 40 mg tablet,delayed release (DR/EC) 40 mg PO DAILY Qty: 90 0RF sucralfate 100 mg/mL suspension 10 ml PO BID Qty: 600 2RF ondansetron 4 mg tablet,disintegrating 4 mg PO Q12H Qty: 20 0RF Rx Instructions: Only take one every 12 hours as needed if you have nausea polyethylene glycol 3350 [Miralax] 17 gram powder in packet 17 g PO DAILY Qty: 14 0RF Rx Instructions: Mix each packet with 8oz of water, Crystal light, or Gatorade zero, or Propel and do 7 packets on 12/30/23 and another 7 packets on 12/31/23 Referrals: Marge Rosenthal MD [Primary Care Provider] - (Four days of total body pain) Interventions: ED Discharge Assessment Last Done: 12/26/23 16:13 Discharge Date/Time: 12/26/23 16:13
[2023-12-26 13:07] VITALS: BP 145/80; PULSE 65; RESP 16; TEMP 36.8; O2SAT 100; BMI 43.7
[2023-12-26 13:27] LABS: MANUAL DIFF FLAG NO
[2023-12-26 13:31] LABS: Basophils Percent Auto 0.4 % (0-2); Eosinophils Absolute Auto 0.1 X10*3/uL (0.0-0.4); Eosinophils Percent Auto 2.2 % (0-4); Hematocrit 38.1 % (37.0-47.0); Hemoglobin 12.1 g/dl (12.0-16.0); Lymphocytes Absolute Auto 1.5 X10*3/uL (1.2-4.9); Lymphocytes Percent Auto 31.9 % (20-40); Mean Corpuscular HGB Conc 31.8 g/dl (31.0-35.0); Mean Corpuscular Hemoglobin 24.4 pg (27.0-33.0); Mean Corpuscular Volume 76.8 fL (80.0-98.0); Mean Platelet Volume 10.5 fL (9.4-12.3); Monocytes Absolute Auto 0.3 X10*3/uL (0.1-1.2); Monocytes Percent Auto 7.4 % (2-11); Neutrophils Absolute Auto 2.7 x10*3/uL (2.0-8.3); Neutrophils Percent Auto 58.1 % (45-73); Platelet Count 241 X10*3/uL (160-400); Red Blood Count 4.96 X10*6/uL (4.20-5.50); Red Cell Distribution Width 15.3 % (11.0-16.0); White Blood Count 4.6 X10*3/uL (4.8-10.8)
[2023-12-26 13:46] LABS: Alanine Aminotransferase 16 U/L (0-31); Alkaline Phosphatase 61 U/L (39-117); Anion Gap 13 (12-20); Aspartate Amino Transferase 20 U/L (5-31); Bilirubin Total 0.6 mg/dL (0.0-1.0); Blood Urea Nitrogen 10 mg/dL (9-16); Calcium 9.4 mg/dL (8.4-10.2); Carbon Dioxide 27 mmol/L (22-29); Chloride 103 mmol/L (96-108); Creatinine Clr Calc Pharmacy 94.4; Estimated Glomerular Filt Rate > 60; Glucose Random 84 mg/dL (60-115); Lipase 19 U/L (8-78); Potassium 3.7 mmol/L (3.3-5.1); Sodium 139 mmol/L (135-145); Total Protein 7.8 g/dL (6.5-8.0)
[2023-12-26 13:52] LABS: B Type Natriuretic Peptide 15 pg/mL (<100)
[2023-12-26 13:54] LABS: Troponin-I High Sensitivity < 2.7 ng/L (<3.5-17.0)
[2023-12-26 14:12] VITALS: BP 151/70; PULSE 67; RESP 14; TEMP 36.7; O2SAT 100
--- NOTE | 2023-12-26 14:14 | PC.NURSE ---
a&ox4. vss and up to date. nsr on the gambling monitor. pt presents to the ED w/ sternal chest pain in nature that radiates to the LUE/left side of neck. pt states pain started this morning out of nowhere/was not induced by anything. pt also c/o feeling dizzy and having a headache. denies change in vision. no sob/wob noted. respirations even and unlabored. pt speaking w/ ED provider in regards to plan of care at this time. waiting for chest xray results. plan of care ongoing. call jones placed within reach.
[2023-12-26] MEDS: Acetaminophen 325 MG TABLET 975 MG PO (14:31)
[2023-12-26] MEDS: Ketorolac Tromethamine 30 MG/ML VIAL IM (14:31)
--- NOTE | 2023-12-26 14:35 | PC.NURSE ---
swabs obtained/sent to lab. medication administered per provider order. effectiveness pending.
[2023-12-26 14:42] LABS: C Reactive Protein 0.29 mg/dL (< or = 0.50)
[2023-12-26 15:12] LABS: Erythrocyte Sedimentation Rate 16 MM/HR (0-20)
--- NOTE | 2023-12-26 15:27 | PC.NURSE ---
pt verbalizing pain level decreased to a 7/10 post medication administration. pt resting comfortably in no apparent distress at this time. respirations remain even and unlabored. call jones placed within reach.
[2023-12-26 15:35] VITALS: BP 153/73; PULSE 58; RESP 16; TEMP 36.6; O2SAT 100
[2023-12-26 15:54] LABS: Influenza A PCR NEGATIVE (Negative); Influenza B PCR NEGATIVE (Negative); Resp Syncy Virus RNA Qual PCR NEGATIVE (Negative); SARS COV2 PCR INHOUSE NEGATIVE (Negative)
== END 2023-12-26 16:13 | disposition home or self-care (01) ==
PROVIDERS: Registered Nurse Emergency; Emergency Provider Emergency Medicine; PCP Internal Medicine
DX: R52 Pain, unspecified (principal); R07.9 Chest pain, unspecified; M25.561 Pain in right knee; G89.29 Other chronic pain; M25.562 Pain in left knee; I10 Essential (primary) hypertension; Z11.52 Encounter for screening for COVID-19; Z20.828 Contact with and (suspected) exposure to other viral communicable diseases
CPT/HCPCS: 0241U; 36415; 71046; 80053; 83690; 83880; 84484; 85025; 85610; 85652; 86140; 93005; 96372; 99284; 99285; J1885

== ENCOUNTER → 2023-12-26 12:02 | Outpatient (BNV) | payer OTHER, SELFPAY | PROVIDERS: PCP Internal Medicine; Visit Provider Internal Medicine | DX: R07.9 Chest pain, unspecified (principal) | CPT/HCPCS: 93010 ==

== ENCOUNTER → 2023-12-27 10:26 | Outpatient (BNVA) | payer OTHER, SELFPAY | PROVIDERS: PCP Internal Medicine; Visit Provider Surgery ==

== ENCOUNTER 2024-01-01 06:33 | Inpatient (IN) | payer OTHER, SELFPAY ==
[2023-12-24 09:51] VITALS: BMI 44.0
[2023-12-27 10:21] LABS: MANUAL DIFF FLAG NO
[2023-12-27 10:43] LABS: Basophils Percent Auto 0.4 % (0-2); Eosinophils Absolute Auto 0.1 X10*3/uL (0.0-0.4); Eosinophils Percent Auto 2.1 % (0-4); Hematocrit 38.7 % (37.0-47.0); Hemoglobin 12.3 g/dl (12.0-16.0); Imm Gran Abs Auto 0.01 X10*3/uL (0.00-0.03); Imm Gran Pct Auto 0.2 % (0.0-0.4); Lymphocytes Absolute Auto 1.3 X10*3/uL (1.2-4.9); Lymphocytes Percent Auto 26.3 % (20-40); Mean Corpuscular HGB Conc 31.8 g/dl (31.0-35.0); Mean Corpuscular Hemoglobin 24.6 pg (27.0-33.0); Mean Corpuscular Volume 77.2 fL (80.0-98.0); Mean Platelet Volume 10.9 fL (9.4-12.3); Monocytes Absolute Auto 0.4 X10*3/uL (0.1-1.2); Monocytes Percent Auto 8.1 % (2-11); Neutrophils Percent Auto 62.9 % (45-73); Platelet Count 242 X10*3/uL (160-400); Red Blood Count 5.01 X10*6/uL (4.20-5.50); Red Cell Distribution Width 15.3 % (11.0-16.0); White Blood Count 4.8 X10*3/uL (4.8-10.8)
[2023-12-27 10:55] LABS: Prothrombin Time 11.8 SEC (11.1-13.3)
[2023-12-27 10:57] LABS: Partial Thromboplastin Time 37.3 SEC (26.0-36.8)
[2023-12-27 11:21] LABS: Estimated Average Glucose 108 mg/dL; Hemoglobin A1c % 5.4 % (<6.0)
[2023-12-27 11:27] LABS: Alanine Aminotransferase 15 U/L (0-31); Albumin Level 4.1 g/dL (3.5-5.0); Alkaline Phosphatase 61 U/L (39-117); Anion Gap 15 (12-20); Aspartate Amino Transferase 20 U/L (5-31); Bilirubin Total 0.6 mg/dL (0.0-1.0); Blood Urea Nitrogen 14 mg/dL (9-16); C Reactive Protein 0.36 mg/dL (< or = 0.50); Calcium 9.4 mg/dL (8.4-10.2); Carbon Dioxide 26 mmol/L (22-29); Chloride 104 mmol/L (96-108); Cholesterol 157 mg/dL (<200); Creatinine Clr Calc Pharmacy 88.3; Estimated Glomerular Filt Rate > 60; Glucose Random 89 mg/dL (60-115); HDL Cholesterol 66 mg/dL (>40); LDL Cholesterol Calculated 77 mg/dL (<100); Potassium 3.6 mmol/L (3.3-5.1); Sodium 141 mmol/L (135-145); Total Protein 7.9 g/dL (6.5-8.0); Triglycerides 74 mg/dL (<150)
[2023-12-27 11:46] LABS: Insulin 5 uU/mL (2-29); TSH reflex Free T4 0.72 uIU/mL (0.32-4.0)
--- NOTE | 2023-12-30 12:01 | HO.ANESPROP2 ---
Documented by User: Gladys Ray NP 12/30/23 12:03 HPI - Anesthesia Eval Consult details Narrative: 58yo F for Gastrectomy Sleeve,EGD,Possible Diaphragmatic Hernia,Possible Ventral Hernia,Possible Open, PMFSH Active Problems Active Problems: All Active Problems (Updated 12/27/23 @ 00:02 by Christina Guerra) LUQ pain (Acute) FH: gastric cancer (Acute) Rectal bleeding (Acute) H. pylori infection (Acute) Knee pain (Acute) Abnormal ECG (Acute) Pre-op evaluation (Acute) Depression (Acute) Fibromyalgia (Acute) YOJANA on CPAP (Acute) Active asthma (Acute) Pre-diabetes (Acute) HTN (hypertension), benign (Acute) Migraine (Acute) Hiatal hernia (Acute) Hyperlipidemia (Acute) Morbid obesity (Acute) Stress incontinence (Acute) Past Medical History Medical History (Updated 01/01/24 @ 07:26 by Cehryl Cat MD) H. pylori infection Rectal bleeding Family history of gastric carcinoma Arthritis Hx of transfusion of packed red blood cells Anemia Vertigo GERD (gastroesophageal reflux disease) Stress incontinence Pre-diabetes Migraine Elevated cholesterol Hiatal hernia Asthma Fibromyalgia Sleep apnea Depression HTN (hypertension) Family History Family History Mother Hypertension Arthritis Father No problems noted. Son No problems noted. Family history of problems with anesthesia: No Surgical History Surgical History Hx of colonoscopy History of esophagogastroduodenoscopy (EGD) Hx of hernia repair Hx of hysterectomy Hx of cholecystectomy History of Problems with Anesthesia: No Social History Social History Are you a primary reservoir caretaker to a significant other at home: No Do you presently have visiting nurse or other home services: Yes ([employer] x 3) Alcohol intake: never Patient Tobacco Use Status: Never used Tobacco Use of substances other than those prescribed or required for medical reasons: No Have you been hit, kicked, punched, or otherwise hurt by someone within the past year? If so, by whom?: No Advance Directives: No Advance Directives Information Provided: No Advance Directives on File: No Recently lost weight without trying: No Eating poorly because of decreased appetite: No Nutrition Risks: No Nutritional Risk Patient : No : No Poor oral hygiene: Yes (upper partial denture) Meds Allergies Allergy/AdvReac Type Severity Reaction Status Date / Time diclofenac Allergy Severe Hallucinati Verified 01/01/24 06:35 ons duloxetine [From CYMBALTA] Allergy Severe Hallucinati Verified 01/01/24 06:35 ons droperidol [DROPERIDOL] Allergy Intermediate dizzy Verified 01/01/24 06:35 Home Medications Medication Instructions Recorded Confirmed Last Taken Type albuterol sulfate 90 mcg/actuation 2 puff inhalation QID PRN wheezing 11/14/22 01/01/24 Unknown History aerosol inhaler (Ventolin HFA) aspirin 81 mg tablet,delayed 81 mg PO DAILY 11/14/22 01/01/24 10/08/23 History release fluticasone propionate 110 1 puff inhalation BID 11/14/22 01/01/24 12/31/23 History mcg/actuation HFA aerosol inhaler (Flovent HFA) lisinopril 20 1 tab PO DAILY 11/14/22 01/01/24 01/01/24 04:00 History mg-hydrochlorothiazide 12.5 mg tablet montelukast 10 mg tablet 10 mg PO DAILY 11/14/22 01/01/24 Unknown History tolterodine 2 mg capsule,extended 2 mg PO DAILY 11/14/22 01/01/24 Unknown History release 24 hr topiramate 50 mg tablet 50 mg PO BID 11/14/22 01/01/24 Unknown History amitriptyline 25 mg tablet 25 mg PO BEDTIME 06/03/23 01/01/24 12/31/23 History citalopram 10 mg tablet 10 mg PO DAILY 06/03/23 01/01/24 Unknown History dicyclomine 10 mg capsule 10 mg PO QID 06/03/23 01/01/24 Unknown History sodium chloride 0.65 % nasal spray 1 spray intranasal DAILY congestion 06/03/23 01/01/24 Unknown History aerosol (Saline Mist) trospium 60 mg capsule,extended 60 mg PO DAILY 06/03/23 01/01/24 12/31/23 History release 24 hr amlodipine 5 mg tablet 5 mg PO DAILY 06/24/23 01/01/24 01/01/24 04:00 History ascorbic acid (vitamin C) 100 mg 100 mg PO DAILY 12/24/23 01/01/24 Unknown History tablet Exam Height,Weight and Vital Signs: Height 5 ft 4 in Weight 116.21 kg Pertinent Lab Results Pertinent Lab Results: Laboratory Tests 12/27/23 12/27/23 10:15 10:20 WBC 4.8 RBC 5.01 Hgb 12.3 Hct 38.7 MCV 77.2 L MCH 24.6 L MCHC 31.8 RDW 15.3 Plt Count 242 MPV 10.9 Immature Gran % (Auto) 0.2 Neut % (Auto) 62.9 Lymph % (Auto) 26.3 [place] % (Auto) 8.1 Eos % (Auto) 2.1 Baso % (Auto) 0.4 Lymph # (Auto) 1.3 [place] # (Auto) 0.4 Eos # (Auto) 0.1 Baso # (Auto) 0.0 Abs Immat Gran (auto) 0.01 Absolute Neuts (auto) 3.0 Absolute Nucleated RBC 0.000 Nucleated RBC % (auto) 0.0 PT 11.8 INR 1.0 APTT 37.3 H Sodium 141 Potassium 3.6 Chloride 104 Carbon Dioxide 26 Anion Gap 15 BUN 14 Creatinine 0.89 Estim Creat Clear Calc 88.3 Estimated GFR > 60 Random Glucose 89 Estimat Average Glucose 108 Hemoglobin A1c % 5.4 Insulin Level 5 Calcium 9.4 Total Bilirubin 0.6 AST 20 ALT 15 Alkaline Phosphatase 61 C-Reactive Protein 0.36 Total Protein 7.9 Albumin 4.1 Triglycerides 74 Cholesterol 157 LDL Cholesterol, Calc 77 HDL Cholesterol 66 TSH 0.72 Blood Type A Negative Antibody Screen NEGATIVE Narrative Narrative: EKG 11/2023 Vent. Rate : 060 BPM Atrial Rate : 060 BPM P-R Int : 166 ms QRS Dur : 090 ms QT Int : 412 ms P-R-T Axes : 024 -07 008 degrees QTc Int : 412 ms Normal sinus rhythm Moderate voltage criteria for LVH, may be normal variant ( R in aVL , Kofi product ) Borderline ECG When compared with ECG of 07-DEC-2022 10:36, No significant change was found ECHO 2022 Conclusions: - 1. Normal LV systolic function with impaired relaxation filling pattern 2. Limited visualization cardiac well with normal cardiac valvular Doppler 3. No gross pericardial effusion NM cardiolite stress test 2022 Impression: 1. Myocardial perfusion imaging study shows normal myocardial perfusion 2. Gated LVEF is 85% 3. Transient ischemic dilatation not present EKG is nondiagnostic for ischemia Assessment and Plan Assessment Anesthesia Assessment: Chart Reviewed Final Anesthetic Review Family History of Problems with Anesthesia: No History of Problems with Anesthesia: No Documented by User: Cheryl Cat MD 01/01/24 07:37 HPI - Anesthesia Eval Consult details Narrative: 58yo F for EGD, Laparoscopic Sleeve Gastrectomy, Possible Diaphragmatic Hernia repair, Possible Ventral Hernia repair ,Possible Open PMFSH Active Problems Active Problems: All Active Problems (Updated 01/01/24 @ 07:10 by Cheryl Cat MD) Left Knee pain (Acute) Abnormal ECG (Acute) Pre-op evaluation (Acute) Depression (Acute) Fibromyalgia (Acute) YOJANA on CPAP (Acute) Asthma- inhaler prn Pre-diabetes (Acute) HTN (hypertension), benign (Acute) Migraine (Acute) Hiatal hernia (Acute) Hyperlipidemia (Acute) Morbid obesity (Acute) BMI 44 Stress incontinence (Acute) Very sleepy but easily arousable- patient states just tired- woke up too early Past Medical History Medical History (Updated 01/01/24 @ 07:26 by Cheryl Cat MD) H. pylori infection Rectal bleeding Family history of gastric carcinoma Arthritis Hx of transfusion of packed red blood cells Anemia Vertigo GERD (gastroesophageal reflux disease) Stress incontinence Pre-diabetes Migraine Elevated cholesterol Hiatal hernia Asthma Fibromyalgia Sleep apnea Depression HTN (hypertension) Family History Family History Mother Hypertension Arthritis Father No problems noted. Son No problems noted. Family history of problems with anesthesia: No Surgical History Surgical History Hx of colonoscopy History of esophagogastroduodenoscopy (EGD) Hx of hernia repair Hx of hysterectomy Hx of cholecystectomy History of Problems with Anesthesia: No Social History Social History Are you a primary reservoir caretaker to a significant other at home: No Do you presently have visiting nurse or other home services: Yes ([employer] x 3) Alcohol intake: never Patient Tobacco Use Status: Never used Tobacco Use of substances other than those prescribed or required for medical reasons: No Have you been hit, kicked, punched, or otherwise hurt by someone within the past year? If so, by whom?: No Advance Directives: No Advance Directives Information Provided: No Advance Directives on File: No Recently lost weight without trying: No Eating poorly because of decreased appetite: No Nutrition Risks: No Nutritional Risk Patient : No : No Poor oral hygiene: Yes (upper partial denture) Meds Allergies Allergy/AdvReac Type Severity Reaction Status Date / Time diclofenac Allergy Severe Hallucinati Verified 01/01/24 06:35 ons duloxetine [From CYMBALTA] Allergy Severe Hallucinati Verified 01/01/24 06:35 ons droperidol [DROPERIDOL] Allergy Intermediate dizzy Verified 01/01/24 06:35 Home Medications Medication Instructions Recorded Confirmed Last Taken Type albuterol sulfate 90 mcg/actuation 2 puff inhalation QID PRN wheezing 11/14/22 01/01/24 Unknown History aerosol inhaler (Ventolin HFA) aspirin 81 mg tablet,delayed 81 mg PO DAILY 11/14/22 01/01/24 10/08/23 History release fluticasone propionate 110 1 puff inhalation BID 11/14/22 01/01/24 12/31/23 History mcg/actuation HFA aerosol inhaler (Flovent HFA) lisinopril 20 1 tab PO DAILY 11/14/22 01/01/24 01/01/24 04:00 History mg-hydrochlorothiazide 12.5 mg tablet montelukast 10 mg tablet 10 mg PO DAILY 11/14/22 01/01/24 Unknown History tolterodine 2 mg capsule,extended 2 mg PO DAILY 11/14/22 01/01/24 Unknown History release 24 hr topiramate 50 mg tablet 50 mg PO BID 11/14/22 01/01/24 Unknown History amitriptyline 25 mg tablet 25 mg PO BEDTIME 06/03/23 01/01/24 12/31/23 History citalopram 10 mg tablet 10 mg PO DAILY 06/03/23 01/01/24 Unknown History dicyclomine 10 mg capsule 10 mg PO QID 06/03/23 01/01/24 Unknown History sodium chloride 0.65 % nasal spray 1 spray intranasal DAILY congestion 06/03/23 01/01/24 Unknown History aerosol (Saline Mist) trospium 60 mg capsule,extended 60 mg PO DAILY 06/03/23 01/01/24 12/31/23 History release 24 hr amlodipine 5 mg tablet 5 mg PO DAILY 06/24/23 01/01/24 01/01/24 04:00 History ascorbic acid (vitamin C) 100 mg 100 mg PO DAILY 12/24/23 01/01/24 Unknown History tablet Exam Height,Weight and Vital Signs: Height 5 ft 4 in Weight 116.21 kg Vital Signs Temp Pulse Resp BP Pulse Ox O2 Del Method 01/01/24 07:02 97.7 F 70 16 101/65 96 Room Air Airway Mallampati Class: II TM Dist: >3cm Neck ROM: Limited (Arthritis but adequate extension ) Partial: Upper Loose/Missing/Broken Teeth: No (Denies broken, loose, missing teeth) Heart: RRR ??murmur Lungs: CTAB Assessment and Plan Assessment Anesthesia Assessment: Anesthesia Plan Discussed and Chart Reviewed Final Anesthetic Review Family History of Problems with Anesthesia: No History of Problems with Anesthesia: No NPO: Yes ASA Class: III Final Preanesthetic Review: No Changes in Pt Med Stat, Meds/Allgs Chart Reviewed, Consent Obtained/Reviewed and Anes Risks/Benef Reviewed Patient Risk: Intermediate Procedure Risk: Intermediate Assessment/Block/Sedation in SS: Assess/Block/Sedation- Anesthetic Plan Anesthetic Plan: GA Disposition: Standard PACU and Inp. Admit - Standard Bed
[2024-01-01] VITALS (11 sets, daily range): BP systolic 101–149; BP diastolic 56–75; PULSE 70–87; RESP 14–18; TEMP 36.2–36.6; O2SAT 96–100
[2024-01-01] MEDS: Aprepitant 32 MG/4.4 ML VIAL IVPUSH (07:09)
[2024-01-01] MEDS: Lactated Ringers 1,000 ML 999 ML IV (07:09)
--- NOTE | 2024-01-01 07:39 | MHC.SHP ---
Pre-Procedural Eval Section A - 24 Hr Update-Section A only Date of Service: 01/01/24 The patient is an INPATIENT: Yes The patient has been examined within 24 hours of the surgical procedure. The History & Physical has been completed within 30 days and I have reviewed it.: Yes Section B - Complete if H&P > 30 days Chief Complaint: morbid obesity Relevant Family History (Specify if Yes): No Relevant Social History: None Present Medications: None Medical History: No relevant PMH History of Previous Operations: No relevant previous surgery Allergies: Allergies Allergy/AdvReac Type Severity Reaction Status Date / Time diclofenac Allergy Severe Hallucinati Verified 01/01/24 06:35 ons duloxetine [From CYMBALTA] Allergy Severe Hallucinati Verified 01/01/24 06:35 ons droperidol [DROPERIDOL] Allergy Intermediate dizzy Verified 01/01/24 06:35 Review of Systems Sugical H&P ROS: Negative: Constitution, Cardiovascular, Respiratory, Neurological, Psychiatric, Hem-Onc, Allergic/Immunologic, Gastrointestinal, Genitourinary, Musculoskeletal, Integumentary, Endocrine and Eyes/Ears/Nose/Throat Exam Surgical H&P Exam: Normal: HEENT, Normal: Heart, Normal: Lungs, Normal: Extremities, Normal: Abdomen, Normal: Skin and Normal: Neurological Plan Diagnosis/Plan: Unchanged I have reviewed the history and physical and performed a pertinent physical examination on my patient. No changes have occurred unless specified. Time Spent With Patient Time: Total time managing care of this patient today ____ minutes.
--- NOTE | 2024-01-01 07:45 | PM.DS ---
DS: Providers Provider Date of Service: 01/02/24 Date of admission: 01/01/24 06:33 Primary care physician: Marge Kowalski MD DS: Summary Hospital Course Hospital Course: ADMITTING DIAGNOSIS: morbid obesity, HTN, YOJANA, asthma, fibromyalgia, migraines, DM, HLD, stress incontinence, persistent hj pylori infection DISCHARGE DIAGNOSIS: same, s/p laparoscopic sleeve gastrectomy and repair diaphragmatic hernia PAST SURGICAL HISTORY: hysterectomy, cholecystectomy, umbillical hernia repair x 3, EGD, colonoscopy PROCEDURE: upper endoscopy, laparoscopic sleeve gastrectomy and repair of diaphragmatic hernia hernia DISCHARGE SUMMARY: History of Present Illness: The patient is a 58 year-old woman with a BMI of 52.4 kg/m2 and associated co-morbidities as described above. The patient had extensive work-up, lost 50 lbs preoperatively and was electively scheduled for laparoscopic, possible open sleeve gastrectomy and gastropexy. Risks and complications of the surgery were discussed with the patient in advance, particularly the possibility of , pulmonary embolism, anastomotic leak, bleeding, bowel injury, GERD, cardiac, renal or pulmonary complications. The patient understood all the risks and was in agreement with the surgical plan. Hospital Course: The patient underwent an uneventful laparoscopic sleeve gastrectomy with gastropexy and repair of diaphragmatic hernia on the day of admission. Postoperatively, the patient was transferred to the surgical floor. The patient received IV Acetaminophen and IV dilaudid for pain control. Patient was started on bariatric phase 1 diet POD #0. On postoperative day one, the patient was feeling well without nausea, vomiting, fevers, or tachycardia. The patient had some mild incisional pain and the abdomen was soft. On the morning of postoperative day one, the patient was continued on 1 ounce of water or ice every half hour. During the day, the patient did fairly well, having some incisional pain, but able to ambulate adequately and to tolerate liquids well. Since the patient is doing well, we decided that the patient was ready to be discharged. The patient was given instructions to follow-up with me next week and to call my office for any fever over 101, persistent abdominal pain, nausea, vomiting, GERD, symptoms of DVT such as calf tenderness, or leg swelling, or pulmonary embolism such as chest pain or shortness of breath. The patient was also instructed to drink 40-60 ounces of liquids per day using the 1-ounce cups. The patient had been given prescriptions for Tylenol for pain, Zofran prn for nausea, and pantoprazole and carafate previously. The patient was encouraged to ambulate and use the incentive spirometer. The patient was allowed to shower, but no baths, and encouraged to stay active at home. All of these instructions were given to the patient personally. All questions were answered and the patient understood all instructions, the instructions were also given to the patient in print. Time Attestation Discharge Coordination Time: discharge time of ____ minutes Quality: Safe Use of Opioids Does Pt have an Active Cancer Diagnosis on the Problem List?: No Quality: Stroke Does the patient have a stroke diagnosis?: No Physical Exam Vital Signs: Vital Signs: Last Vital Signs Temp 97.7 F 01/01/24 07:02 Pulse 70 01/01/24 07:02 Resp 16 01/01/24 07:02 BP 101/65 01/01/24 07:02 Pulse Ox 96 01/01/24 07:02 O2 Del Method Room Air 01/01/24 07:02 BMI result Body Mass Index 44.0 Discharge Plan Discharge Anticipated Discharge Date/Time: 01/02/24 10:41 Patient Disposition: Home, Self-Care Discharge Diagnosis: s/p sleeve gastrectomy and hiatal hernia repair Referrals: Marge Rosenthal MD [Primary Care Provider] - 1 Week Discharge Medications: Continued Vitron-C 65 mg iron- 125 mg tablet,delayed release (DR/EC) 1 tab PO BEDTIME Qty: 30 5RF citalopram 20 mg tablet 20 mg PO DAILY albuterol sulfate [Ventolin HFA] 90 mcg/actuation HFA aerosol inhaler 2 puff inhalation QID PRN (Reason: wheezing) montelukast 10 mg tablet 10 mg PO DAILY topiramate 50 mg tablet 50 mg PO BID tolterodine 2 mg capsule,extended release 24hr 2 mg PO DAILY fluticasone propionate [Flovent HFA] 110 mcg/actuation HFA aerosol inhaler 1 puff inhalation BID amitriptyline 25 mg tablet 25 mg PO BEDTIME Saline Mist 0.65 % aerosol,spray 1 spray intranasal DAILY PRN (Reason: congestion) trospium 60 mg capsule,extended release 24hr 60 mg PO DAILY pantoprazole 40 mg tablet,delayed release (DR/EC) 40 mg PO DAILY Qty: 90 0RF sucralfate 100 mg/mL suspension 10 ml PO BID Qty: 600 2RF ondansetron 4 mg tablet,disintegrating 4 mg PO Q12H Qty: 20 0RF Rx Instructions: Only take one every 12 hours as needed if you have nausea Held lisinopril-hydrochlorothiazide 20-12.5 mg tablet 1 tab PO DAILY Hold Instructions: Resume on 01/03/24. Check your blood pressure every morning as soon as you wake up and send it to Dr. Aden. Do no take the blood pressure medication if the blood pressure is below 120/70. Wait every day to hear back from Dr. Aden before you take the medication. amlodipine 5 mg tablet 5 mg PO DAILY Hold Instructions: Resume on 01/03/24. Check your blood pressure every morning as soon as you wake up and send it to Dr. Aden. Do no take the blood pressure medication if the blood pressure is below 120/70. Wait every day to hear back from Dr. Aden before you take the medication. Discontinued cholecalciferol (vitamin D3) 50 mcg (2,000 unit) capsule 50 mcg PO DAILY Qty: 30 5RF bismuth subsalicylate 262 mg tablet,chewable 2 tab PO QID 14 Days Qty: 112 0RF thiamine HCl (vitamin B1) 100 mg tablet 100 mg PO DAILY Qty: 90 1RF ascorbic acid (vitamin C) 100 mg Tablet 100 mg PO DAILY aspirin 81 mg tablet,delayed release (DR/EC) 81 mg PO DAILY Discharge Orders: Discharge Order (Routine); Ordered 01/02/24 Ordered By: Raheem Aden Activity on Discharge: No heavy lifting Stand Alone Forms: Patient Portal Discharge page Care Plan Goals: weight loss Health Concerns: morbid obesity Plan of Treatment: No tub baths, sex or returning to work until discussed at first post op appointment. No exercise, alcohol, tobacco or illegal drug use. Continue to use incentive spirometer hourly while awake. Walk in home for 5- 10 minutes every 2 hours during the first week. Continue phase 1 diet today and start phase 2 diet tomorrow morning. Follow all instructions in the bariatric handbook and call with any questions. 1. Please call your doctor or come back to the emergency room should any new symptoms arise. 2. You will receive a courtesy call from [facility] 24-48 hours after discharge. 3. Activity: abstain from alcohol, practice limited stair climbing, no bending, no driving, no exercise, no illicit substances, no lifting, no sex, no tub bath, no work. 4. Diet: continue as discussed with bariatric team.. 5. Dressing Change/Wound Care: Do not change or remove surgical dressings unless they are wet or soiled. 6. Call your doctor if: - Your temperature exceeds 101.5 F - You experience excessive pain or swelling - You have an unexpected reaction to medication - You have excessive bleeding - You experience continued vomiting/nausea - Your incision begins to separate - Your incision shows signs of infection such as increased redness, swelling, excessive pain, heat, or drainage (light blood or clear fluid is normal) 7. General instructions: No lifting greater than 5 lbs for 1 week and not more than 20lbs the next 3?weeks. No driving until seen at the office in 5-7 days after surgery. If you do not move your bowels in the next 2 days, please tell?Dr. Aden. Please walk around your home every hour or two to prevent blood clots from forming in your legs. You do not need to wake from sleeping to walk. Please sleep in a bed or couch to prevent kinking at the hips and knees. Please take your incentive spirometer (your lung pre certification specialist) home with you and use it for the next few days to prevent pneumonia. You may shower, no hot tubs, baths or swimming pools.?Please follow the post op diet instructions you are?given by Dr Mariah oliva? and text me daily at 5-6pm for an update.?If you have any issues or concerns or questions please communicate this to him via text.? The Celebrate shakes have all of the bariatric vitamins you need if you consume these shakes. If you are drinking other protein shakes, you will need to purchase the Celebrate multivitamins and calcium that are available in the hospital gift shop on the first floor of the main hospital.??Do not take anything without first discussing with Dr Aden. Please make sure you are consuming at least 40 ounces of fluids per day starting the?day AFTER your discharge from the hospital. Always drink 1-2 ml per minute using the 5ml?syringe. If you drink faster you may experience?bloating,?gas pain, burping, nausea or heartburn. In that case please slow down your pace and use the syringe to?understand better the?proper?pace and volume of drinking. Do not hesitate to contact the office with any questions at . The patient's medical history has been reviewed and they are considered low risk for post op DVT and therefore DVT prophylaxis is not considered necessary. Travel after surgery was reviewed. The patient has not disclosed any travel plans during the first 30 days after surgery and they have been advised that within the first 30 days after surgery any bus, plane, train or car travel over 2 hours in duration is contraindicated due to the possibility of developing blood clots from immobility. Any travel, needs to include periods of ambulation of 10 minutes in duration every 2 hours. The patient was instructed to discuss any plans for travel during this period with their bariatric surgeon. Assessment: stable, post op sleeve gastrectomy and hiatal hernia repair
--- NOTE | 2024-01-01 11:00 | P.BOP_ITS ---
Brief Operative Note Date of Service: 01/01/24 Pre-op diagnosis: Morbid obesity with comorbidities (see below) Post-op diagnosis: same Procedure: INITIAL PATIENT BMI ON PRESENTATION AT OUR OFFICE: 52.5 kg/m2 LAST BMI BEFORE SURGERY: 42.9 kg/m2 COMORBIDITIES: GERD, diaphragmatic hernia, hypertension, sleep apnea on CPAP, asthma, diabetes, depression, migraines, stress incontinence, DJD, H pylori infection, liver steatosis, esophagitis ?The patient presented to the Weight Management Program with significant obesity that was negatively impacting the patient's comorbidities as listed above.? The program is a phased program with a special focus on preoperative medical weight management to promote substantial weight loss and prepare the patients for the second phase of the program: bariatric surgery. The patient participated in an intensive weekly lifestyle ?intervention and exercise program during which the patient ?has lost between the initial office visit and the last preoperative visit 54.2lbs, or 17.7% of initial actual body weight. It was deemed appropriate for the patient to now have bariatric surgery. In light of the current Covid-19 pandemic and the well documented strong association of obesity and increased risk of worse outcomes if infected with Covid-19 (REFERENCES: https://pubmed.ncbi.nlm.nih.gov/24281761/ ,? https://pubmed.ncbi.nlm.nih.gov/96498637/ ), any delay in undergoing bariatric surgery may lead to the patient's worsening health condition and increased?risk of more severe Covid-19 disease if infected. In addition a recent?study from [facility] published in [facility] on 10/23/2021 ([email or web address]) found that, among patients with obesity, substantial weight loss achieved with surgery was associated with improved outcomes of COVID-19 infection. The findings suggest that obesity can be a modifiable risk factor for the severity of COVID-19 infection. In addition, the patient met the BMI-criteria for bariatric surgery based on the BMI on initial presentation. The patient should not be penalized for achieving such weight loss because ?it is not sustainable long-term without surgical intervention and it was achieved in preparation for bariatric surgery ?under my direction and based on my published research ([email or web address] and? https://www.soard.org/article/[email or web address](66)33830-X/pdf ) ?that a 10% preoperative weight loss improves long-term weight loss after surgery and reduces perioperative complications.? Insurance carriers such as [facility] have endorsed my recommendations ?and have included in their policies criteria to include a 10% preoperative weight loss requirement. PROCEDURE: Esophago-gastroscopy, laparoscopic repair of incarcerated diaphragmatic hernia, laparoscopic lysis of adhesions, laparoscopic sleeve gastrectomy and laparoscopic gastropexy INDICATIONS: This is a 58 year-old female who was electively scheduled for laparoscopic, possibly open sleeve gastrectomy. The risks and complications of the procedure were discussed with the patient in advance, particularly the possibility of ; pulmonary embolism; staple line leak; bleeding; GERD; cardiac, pulmonary, or renal complications; as well as long-term problems such as insufficient weight loss, vitamin deficiency, strictures, or ulcers. The patient understood all the risks, and was in agreement to proceed with surgery. DESCRIPTION OF PROCEDURE: After informed consent was obtained from the patient, the patient was given preoperative antibiotics, and was transferred to the operating room. After successful induction of general anesthesia, pneumatic compression devices were placed on both lower extremities. An upper endoscopy was performed next. The oropharynx and esophagus appeared to be within normal limits. There was a diaphragmatic hernia present of moderate size consistent with the findings of the preoperative upper GI. The stomach was entered. Then after all fluid and air were suctioned and the stomach was fully decompressed, the scope was withdrawn and secured in the mid esophagus. The patient was then prepped and draped in the usual sterile manner, and abdominal access was established at the right upper quadrant with the Naomi technique. A 12 mm blunt port was inserted, and the abdomen was insufflated with CO2 to a pressure of 15 mmHg. Under direct visualization, additional ports were placed, specifically two 5 mm Versi-step ports to the left upper quadrant, and a 5 mm Versi-Step port to the right upper quadrant. 1% lidocaine plain was used to infiltrate all port sites as well as all fascia defects. There were extensive adhesions in the abdomen from previous ventral hernia repairs involving the omentum and the anterior abdominal wall. Those were lysed with the ultrasonic device (Thunderbeat, Olympus) enough to provide adequate exposure to perform the sleeve gastrectomy. Adhesions near the umbilicus were left intact as they did not interfere with our procedure. An additiona (extra) 5 mm Versi step port was required at the right mid-axillary line at the level of the umbilicus to facilitate the adhesiolysis. Following that, the patient was placed in a steep reverse Trendelenburg position. An additional 5 mm port was placed to the right flank for the Mediflex retractor that was used to retract the left lobe of the liver. The gastro-esophageal fat pad was opened with the ultrasonic device (Thunderbeat, Olympus) and the anterior esophagus and hiatus were exposed. The angle of His was opened with the ultrasonic device the fundus of the stomach from any diaphragmatic and splenic attachments. I then opened the gastrocolic ligament between the transverse colon and the greater curvature of the stomach with the ultrasonic device to enter the lesser sac and facilitate the ligation of the short gastric vessels. I started at a mid-point along the greater curvature and using the Thunderbeat, all short gastric vessels were divided all the way to the angle of His until the left sukumar was completely dissected at its entirety. I then divided the gastro-colic lig ament distally to a distance of about 3-4 cm proximal to the pylorus. There were extensive congenital adhesions between the pancreas and posterior gastric wall. Those were lysed completely with the ultrasonic device. Adhesiolysis took approximately 45 min to complete. There was an obvious significant-sized hiatal hernia. I continued dissecting along the hiatus toward the left sukumar and the angle of His. I fully mobilized the fat pad that was incarcerated in the hernia. I then continued by dissecting even further into the posterior retro-esophageal space all the way to the angle of His. I continued to mobilize the esophagus into the mediastinum circumferentially. Both vagal nerves were seen and preserved. At that point, I was able to have at least 3 to 5 cm of esophagus into the abdomen.? After I completely mobilized the esophagus from both the left and right sukumar and I had a good mobilization of the esophagus circumferentially, I closed the hernia defect with three interrupted #0 Surgidac sutures using the Endo Stitch device, two of which was placed posterior and one of which anterior to the esophagus. ? The stomach was then divided transversely with two Endo ZAID-45 purple and four ZAID-60 articulating orange loads using the [employer] stapler and loads. Every effort was made that the gastric sleeve had a tubular shape and an even caliber throughout. Once the sleeve resection was completed, the staple line of the gastric sleeve was reinforced with Hemoclips. The resected stomach was retrieved without difficulty from the Naomi port. A gastropexy was then performed in order to prevent postoperative GERD and partial gastric volvulus. Several interrupted 2.0 Surgidac sutures were placed between the sleeve's staple line and the previously divided greater omentum and gastro-colic ligament using the Endo-Stitch device. ?An upper endoscopy was performed. There was no narrowing at the GE junction. The scope was easily advanced all the way to the pylorus which was clearly vi sualized. There was no narrowing anywhere and the sleeve's caliber was even throughout. The sleeve's staple line was inspected and there was no evidence of ischemia, bleeding or dehiscence. At that point the gastroscope was withdrawn from the patient?s mouth while we were decompressing the bowel and the stomach from any remaining air. I looked into the lesser sac to see how the sleeve was situating and it was situating well. There was no bleeding from the staple line, spleen, or short gastric vessels. The Mediflex retractor was removed, and the undersurface of the liver was inspected and there was no bleeding. The patient was placed in supine position. I closed the fascial defect of the 12 mm port site with a figure of eight #1 Polysorb suture. Then 30cc Ropivacaine plain with 10 mg of Dexamethasone were used to infiltrate the fascial closure as well as all skin incisions. At this point, the abdomen was deflated, all ports were removed under direct vision, and no bleeding was noted from any of the port sites. The skin incisions were irrigated with saline and were closed with 4-0 absorbable monofilament sutures. Steri-Strips and OpSites were used to cover all incisions. The patient was extubated and was transferred in stable condition to the recovery room for further care. I was present and performed all craig parts of the procedure. Ms. 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 There were no residents to assist with this case. Homero Aden MD, PhD, FACS Surgeon: Raheem Aden MD Anesthesia: GETA, local and other (TAP block) Was an Web Page Designer used for this Procedure?: No Web Page Designer: Krystyna Capellan Estimated blood loss (mL): 10 IV fluids (mL): 3,000 Urine output (mL): 0 (No Robertson to record output) Pathology: other (Stomach) Condition: stable Disposition: PACU
[2024-01-01 11:29] LABS: Hematocrit 37.2 % (37.0-47.0); Hemoglobin 11.9 g/dl (12.0-16.0)
--- NOTE | 2024-01-01 11:33 | PM.PNGS ---
Subjective Subjective Date of Service: 01/02/24 Interval history: Feels well. Mild incisional pain. She is tolerating phase 1 bariatric diet Physical Exam Vital Signs: Vital Signs: Last Vital Signs Temp 98 F 01/01/24 10:44 Pulse 78 01/01/24 11:29 Resp 15 01/01/24 11:29 BP 136/71 01/01/24 11:29 Pulse Ox 98 01/01/24 11:29 O2 Del Method Nasal Cannula 01/01/24 11:29 O2 Flow Rate 2 01/01/24 11:29 BMI result Body Mass Index 44.0 GI: Inspection: Yes normal to inspection, Yes incision (clean, dry and intact) and Yes obesity Palpation (GI): Soft to palpation Extrem: Right lower extremity: normal to inspection (no calf tenderness) Left lower extremity: normal to inspection (no calf tenderness) Objective Data Active Medications Albuterol Sulfate (Albuterol Sulfate (0.083%) 2.5 Mg/3 Ml Vial.Neb) 2.5 mg INHALE ONCE PRN PRN Reason: Shortness of Breath/Wheezing Albuterol Sulfate (Albuterol Sulfate 90 Mcg 8 Gm Inhaler) 2 puff INHALE QID PRN PRN Reason: wheezing Amitriptyline HCl (Amitriptyline Hcl 25 Mg Tablet) 25 mg PO BEDTIME JASON Amlodipine Besylate (Amlodipine Besylate 5 Mg Tablet) 5 mg PO DAILY JASON; Protocol Fentanyl (Fentanyl Citrate/Pf 100 Mcg/2 Ml Vial) 25 mcg IVPUSH Q5M PRN; Protocol PRN Reason: Pain, Moderate(Pain Scale 4-6) Hydromorphone HCl (Hydromorphone Hcl 0.5 Mg/0.5 Ml Syringe) 0.25 mg IVPUSH Q5M PRN; Protocol PRN Reason: Pain, Severe (Pain Scale 7-10) Lactated Ringer's (Lr) 1,000 mls @ 100 mls/hr IVCONT .Q10H JASON Promethazine HCl 6.25 mg/ (Sodium Chloride) 50.25 mls @ 201 mls/hr IV ONCE PRN PRN Reason: Nausea and Vomiting Non-Formulary Medication (Citalopram) 10 mg PO DAILY [facility] Non-Formulary Medication (Fluticasone Propionate [Flovent Hfa]) 1 puff INHALE BID [facility] Ondansetron HCl (Ondansetron Hcl 4 Mg/2 Ml Vial) 4 mg IVPUSH ONCE PRN PRN Reason: Nausea and Vomiting Tolterodine Tartrate (Tolterodine Tartrate La 2 Mg Cap.Er.24h) 2 mg PO DAILY JASON Topiramate (Topiramate 25 Mg Tablet) 50 mg PO BID JASON Labs 01/02/24 06:24 01/02/24 06:24 Procedures Date of Service Date of Service: 01/02/24 Progress Note: A&P Assessment and plan (1) Morbid obesity: Status: Acute Assessment and Plan: s/p laparoscopic sleeve gastrectomy, lysis of adhesions, diaphragmatic hernia repair and gastropexy Doing well Will check am labs and if OK the patient will be discharged home (2) S/P laparoscopic sleeve gastrectomy: Status: Acute (3) S/P repair of paraesophageal hernia: Status: Acute (4) Hiatal hernia: Status: Acute (5) Hyperlipidemia: Status: Acute (6) Stress incontinence: Status: Acute (7) Migraine: Status: Acute (8) HTN (hypertension), benign: Status: Acute (9) Pre-diabetes: Status: Acute (10) Active asthma: Status: Acute (11) YOJANA on CPAP: Status: Acute (12) Depression: Status: Acute (13) Fibromyalgia: Status: Acute (14) Knee pain: Status: Acute (15) Steatosis, liver: Status: Acute (16) Esophagitis: Status: Acute Time Spent With Patient Time: Total time managing care of this patient today ____ minutes. Quality Stroke Does the patient have a stroke diagnosis?: No VTE Prior VTE?: No VTE Risk Level:: Surgical - moderate VTE Device Contraindication: N/A - Device Ordered VTE Drug Contraindication: Treatment Not Indicated
[2024-01-01 11:40] LABS: Anion Gap 13 (12-20); Blood Urea Nitrogen 11 mg/dL (9-16); Calcium 9.3 mg/dL (8.4-10.2); Carbon Dioxide 25 mmol/L (22-29); Chloride 101 mmol/L (96-108); Creatinine Clr Calc Pharmacy 83.6; Estimated Glomerular Filt Rate > 60; Glucose Random 137 mg/dL (60-115); Potassium 3.2 mmol/L (3.3-5.1); Sodium 136 mmol/L (135-145)
[2024-01-01] MEDS: Lactated Ringers 1,000 ML 100 ML IVCONT (12:09)
[2024-01-01] MEDS: Famotidine/PF 20 MG/2 ML VIAL IVPUSH ×2 (12:09→22:09)
[2024-01-01] MEDS: Potassium Chloride/H20 10 MEQ/100 ML PIGGYBACK 100 MEQ IV (12:14)
[2024-01-01] MEDS: HYDROmorphone HCl 0.5 MG/0.5 ML SYRINGE 0.25 MG IVPUSH (12:57)
[2024-01-01] MEDS: KCl 20 mEq in 0.9 % Sodium ChL 20 MEQ/1,000 ML IV.SOLN 100 MEQ IVCONT ×2 (13:34→23:23)
[2024-01-01] MEDS: ceFAZolin Sodium/Dextrose,Iso 2 GM/50 ML PIGGYBACK IV (13:35)
--- NOTE | 2024-01-01 14:25 | PHA.MEDREC ---
Pharmacy Consult ? Medication Reconciliation Pharmacy has reviewed the medication reconciliation completed by nursing, called pharmacy to confirm some medications, [facility] stated dicyclomine was last filled may 2022, tolteridine was last filled april 2022, topiramate was last filled march 2022, and trospium was last filled july 2022. Citalopram was updated to 20mg instead of 10mg, as patient got a 20mg filled in November 2023 and 10 mg was old claim.
[2024-01-01] MEDS: Acetaminophen 1,000 MG/100 ML PIGGYBACK 16.7 MG IV ×2 (14:26→20:32)
[2024-01-01] MEDS: Fluticasone Propionate 100 MCG BLST.W.DEV 1 PUFF INHALE (19:45)
[2024-01-01] MEDS: Amitriptyline HCl 25 MG TABLET PO ×2 (22:09→22:10)
[2024-01-01] MEDS: Topiramate 25 MG TABLET 50 MG PO (22:09)
[2024-01-01] MEDS: 0.9 % Sodium Chloride Flush 3 ML SYRINGE IVFLUSH (22:09)
--- NOTE | 2024-01-01 23:42 | PC.NURSE ---
pt is arousable to name, still gas pain to chest to back encourage to OOB, and I.S. pt went to br to void, afew cups to drink, after 2200 she wants to sleep. will continue to monitor.
[2024-01-02] MEDS: Acetaminophen 1,000 MG/100 ML PIGGYBACK 16.7 MG IV ×2 (03:08→08:34)
[2024-01-02 03:58] VITALS: BP 162/77; PULSE 70; RESP 18; TEMP 36.4; O2SAT 97
[2024-01-02 05:02] VITALS: BMI 43.8
[2024-01-02 06:38] LABS: MANUAL DIFF FLAG NO
[2024-01-02 06:45] LABS: Basophils Percent Auto 0.1 % (0-2); Hemoglobin 11.1 g/dl (12.0-16.0); Imm Gran Abs Auto 0.06 X10*3/uL (0.00-0.03); Imm Gran Pct Auto 0.6 % (0.0-0.4); Lymphocytes Absolute Auto 0.9 X10*3/uL (1.2-4.9); Lymphocytes Percent Auto 8.6 % (20-40); Mean Corpuscular HGB Conc 32.6 g/dl (31.0-35.0); Mean Corpuscular Hemoglobin 24.8 pg (27.0-33.0); Mean Corpuscular Volume 75.9 fL (80.0-98.0); Mean Platelet Volume 11.3 fL (9.4-12.3); Monocytes Absolute Auto 0.6 X10*3/uL (0.1-1.2); Monocytes Percent Auto 5.5 % (2-11); Neutrophils Absolute Auto 8.8 x10*3/uL (2.0-8.3); Neutrophils Percent Auto 85.2 % (45-73); Platelet Count 206 X10*3/uL (160-400); Red Blood Count 4.48 X10*6/uL (4.20-5.50); Red Cell Distribution Width 14.9 % (11.0-16.0); White Blood Count 10.3 X10*3/uL (4.8-10.8)
[2024-01-02 07:32] LABS: Anion Gap 12 (12-20); Blood Urea Nitrogen 7 mg/dL (9-16); Calcium 7.8 mg/dL (8.4-10.2); Carbon Dioxide 22 mmol/L (22-29); Chloride 107 mmol/L (96-108); Creatinine Clr Calc Pharmacy 117.1; Estimated Glomerular Filt Rate > 60; Glucose Random 94 mg/dL (60-115); Potassium 5.5 mmol/L (3.3-5.1); Sodium 135 mmol/L (135-145)
[2024-01-02 07:38] VITALS: BP 161/75; PULSE 71; RESP 17; TEMP 36.3; O2SAT 96
[2024-01-02] MEDS: Fluticasone Propionate 100 MCG BLST.W.DEV 1 PUFF INHALE (08:08)
[2024-01-02 08:11] VITALS: PULSE 81; RESP 18; O2SAT 98
[2024-01-02] MEDS: Escitalopram Oxalate 10 MG TABLET PO (08:33)
[2024-01-02] MEDS: amLODIPine Besylate 5 MG TABLET PO (08:33)
[2024-01-02] MEDS: Topiramate 25 MG TABLET 50 MG PO (08:33)
[2024-01-02] MEDS: Famotidine/PF 20 MG/2 ML VIAL IVPUSH (08:33)
--- NOTE | 2024-01-02 09:07 | MHC.CM.PN ---
Patient from home alone. Has daily [employer] services - 4hrs in the morning and 2 hours in the evening, assist w/ ADL's. Incontinent of urine at times - uses briefs. Ambulates w/ a cane. Has CPAP through [facility]. PCP Marge Kowalski MD HCP daughter in law Dorina DP: Patient is medically cleared from home self care, will resume [employer] services. [employer] will transport home.
--- NOTE | 2024-01-02 10:38 | HO.POSTANES ---
Post Anesthesia Evaluation Post Anesthesia Evaluation Date of Service: 01/02/24 Vital Signs: Vital Signs Temp Pulse Resp BP Pulse Ox O2 Del Method 01/02/24 08:11 81 18 01/02/24 07:38 97.4 F 71 17 161/75 H 96 Room Air 01/02/24 03:58 97.6 F 70 18 162/77 H 97 Room Air Anesthesia: General Endotracheal-GETA Mental Status: Awake Pain Control: Satisfactory Nausea/Vomiting: None Hydration: Adequate Anesthesia-Related Issues: No Anes. Related Issues
== END 2024-01-02 10:28 | disposition home or self-care (01) | DRG 403 ==
LOC: HO.SSSA 07:41 → HO.S3 10:51
PROVIDERS: Physician Assistant; Admitting Provider Surgery; PCP Internal Medicine; Visit Provider Surgery
PROC: 0DB64Z3 Excision of Stomach, Percutaneous Endoscopic Approach, Vertical (ICD-10-PCS; CPT 43845; principal; 2024-01-01 07:30)
DX: E66.01 Morbid (severe) obesity due to excess calories (principal); K44.0 Diaphragmatic hernia with obstruction, without gangrene; K76.0 Fatty (change of) liver, not elsewhere classified; K66.0 Peritoneal adhesions (postprocedural) (postinfection); J45.909 Unspecified asthma, uncomplicated; I10 Essential (primary) hypertension; G47.33 Obstructive sleep apnea (adult) (pediatric); F32.A Depression, unspecified; E11.9 Type 2 diabetes mellitus without complications; G43.909 Migraine, unspecified, not intractable, without status migrainosus; M19.90 Unspecified osteoarthritis, unspecified site; N39.3 Stress incontinence (female) (male); K21.00 Gastro-esophageal reflux disease with esophagitis, without bleeding; Z68.41 Body mass index [BMI] 40.0-44.9, adult; Z79.51 Long term (current) use of inhaled steroids; Z79.899 Other long term (current) drug therapy
CPT/HCPCS: 36415; 80048; 80053; 80061; 83036; 83525; 84443; 85014; 85018; 85025; 85610; 85730; 86140; 86850; 86900; 86901; 88307; 88342; 94640; A4649; C9145; J0131; J0690; J1100; J1170; J2250; J2405; J2704; J2795; J3010; J3480; J7120

== ENCOUNTER → 2024-01-01 06:33 | Outpatient (BNV) | payer OTHER, SELFPAY | PROVIDERS: Admitting Provider Surgery; PCP Internal Medicine; Visit Provider Surgery | DX: E66.01 Morbid (severe) obesity due to excess calories (principal); Z68.42 Body mass index [BMI] 45.0-49.9, adult; K66.0 Peritoneal adhesions (postprocedural) (postinfection); K44.0 Diaphragmatic hernia with obstruction, without gangrene | CPT/HCPCS: 43281; 43659; 43775; 99024 ==

== ENCOUNTER 2024-01-08 10:32 | Outpatient (AMB) | payer OTHER, SELFPAY ==
--- NOTE | 2024-01-08 10:37 | MHC.OFFVISWM ---
Intake VS Expanded 01/08/24 10:49 BP 102/70 Blood Pressure Location Rt brachial Blood Pressure Position Sitting Pulse 95 Pulse Source Pulse Oximeter Temp 96.8 F Temperature Source Temporal Artery Scan Pulse Oximetry 100 Oxygen Delivery Method Room Air Height 5 ft 4 in Weight 232 lb 6.4 oz BMI 39.9 Body Fat % 46.6 Body Fat Mass 108 Fat Free Mass 124.2 Visceral Fat Rating 14.0 Body Water % 38.0 Body Water Mass 88.2 Muscle Mass/Score 118.0 Basal Metabolic Rate/Score 1,745 Intake Visit Reasons: (OV) 7 Days PO LSG 01/01/24 Allergies diclofenac Allergy (Severe, Verified 01/01/24 06:35) Hallucinations duloxetine [From CYMBALTA] Allergy (Severe, Verified 01/01/24 06:35) Hallucinations droperidol [DROPERIDOL] Allergy (Intermediate, Verified 01/01/24 06:35) dizzy HPI HPI Comments History of Present Illness Details Patient is a pleasant 58-year-old female who returns to the office today in follow-up. She is approximately 7 days post sleeve gastrectomy performed on 01/01/2024. She states overall she is doing well although was only doing 1/2 scoop per shake. This was an error in her reading of the text message from Dr. Aden. This was corrected and she will now be doing 1 scoop per shake. She is tolerating 3 shakes per day in approximately 24 oz of additional fluids. She moved her bowels and no complaints of pain. [facility] Medical History (Updated 01/03/24 @ 00:03 by Christina Guerra) LUQ pain FH: gastric cancer Abnormal ECG Pre-op evaluation H. pylori infection Rectal bleeding Family history of gastric carcinoma Arthritis Hx of transfusion of packed red blood cells Anemia Vertigo GERD (gastroesophageal reflux disease) Stress incontinence Pre-diabetes Migraine Elevated cholesterol Hiatal hernia Asthma Fibromyalgia Sleep apnea Depression HTN (hypertension) Surgical History (Updated 01/08/24 @ 10:44 by Arielle Arora CMA) S/P laparoscopic sleeve gastrectomy Hx of colonoscopy History of esophagogastroduodenoscopy (EGD) Hx of hernia repair Hx of hysterectomy Hx of cholecystectomy Family History Mother Hypertension Arthritis Father No problems noted. Son No problems noted. Social History Household Members: None Housing: House Are you a primary respiratory care assistant to a significant other at home: No Do you presently have visiting nurse or other home services: Yes ([employer]IOR [employer]ION[employer]) Alcohol intake: never Patient Tobacco Use Status: Never used Tobacco service: No Physical Exam Vital Signs: Last Vital Signs Temp 96.8 F 01/08/24 10:49 Pulse 95 01/08/24 10:49 BP 102/70 01/08/24 10:49 Pulse Ox 100 01/08/24 10:49 Oxygen Delivery Method Room Air 01/08/24 10:49 BMI result Body Mass Index 39.9 GI Inspection: Yes incision (Clean, dry, intact.) Assessment & Plan Assessment & Plan (1) S/P laparoscopic sleeve gastrectomy: Code(s): Z98.84 - Bariatric surgery status Plan: POD 7 s/p LSG on 01/01/[address] Aden Weight loss prior to surgery was 50.2 pounds or 16.4 % TBWL. Original weight on 11/22/2022 was 305.8 pounds and op weight was 255.6 pounds. Be sure to text Dr Aden exactly 1 week after surgery your weight from your home scale so he can adjust your meal plan. She was mistakenly only using half scoop per shake. This was corrected during today's visit to have 1 scoop per shake, 3 shakes per day. Continue meal plan until f/u w Laureen in 2 weeks May shower, no submersion in bath for another week Continue abdominal binder with activity and exercise for the next 2 weeks. Exercise prior to surgery was walking, february and at home using home videos outside resume No abdominal exercises for 6 weeks post operatively Will be emailed link to post op video for review Reminded of the pace of drinking, 2 mL per minute, 1 oz/15 min. With regard to her blood pressure, she was given parameters by Dr. Aden. She typically is taking 1/2 a tab daily of her lisinopril Coding Level of Care Code Global (93589) Diagnoses S/P laparoscopic sleeve gastrectomy Z98.84
[2024-01-08 10:49] VITALS: BP 102/70; PULSE 95; TEMP 36; O2SAT 100; BMI 39.9
== END 2024-01-08 11:37 | disposition home or self-care (01) ==
PROVIDERS: PCP Internal Medicine; Visit Provider Physician Assistant Surgical
DX: E66.9 Obesity, unspecified (principal); Z68.39 Body mass index [BMI] 39.0-39.9, adult; Z90.3 Acquired absence of stomach [part of]; Z98.84 Bariatric surgery status
CPT/HCPCS: 99024

== ENCOUNTER → 2024-01-08 10:32 | Outpatient (BNVA) | payer OTHER, SELFPAY | PROVIDERS: PCP Internal Medicine; Visit Provider Physician Assistant Surgical | DX: Z48.815 Encounter for surgical aftercare following surgery on the digestive system (principal); Z71.3 Dietary counseling and surveillance; Z98.84 Bariatric surgery status | CPT/HCPCS: 99212 ==

== ENCOUNTER 2024-01-16 14:59 | Emergency (ER) | payer OTHER, SELFPAY ==
[2024-01-16] VITALS (7 sets, daily range): BP systolic 108–129; BP diastolic 56–82; PULSE 64–88; RESP 14–17; TEMP 36.6–36.8; O2SAT 98–100; BMI 39.0
--- NOTE | ~2024-01-16 | XR_ITS ---
EXAMINATION: XR ABDOMEN KUB CLINICAL INDICATION: Fecal impaction. COMPARISON: None available. TECHNIQUE: AP view of the abdomen. FINDINGS: There is scattered gas and stool in the colon with mild prominence. There are surgical almaz in the left epigastric region from surgical changes and cholecystectomy. There is anterior abdominal wall hernia repair with mesh in place. No gross bony abnormality. No organomegaly. Changes XR/XR KUB IMPRESSION: 1. Mild constipation. No acute process seen. 2. Postsurgical changes left epigastric region, cholecystectomy and anterior abdominal wall hernia repair.
[2024-01-16 16:06] LABS: MANUAL DIFF FLAG NO
[2024-01-16 16:07] LABS: Basophils Percent Auto 0.6 % (0-2); Eosinophils Absolute Auto 0.1 X10*3/uL (0.0-0.4); Eosinophils Percent Auto 1.3 % (0-4); Hemoglobin 13.7 g/dl (12.0-16.0); Imm Gran Abs Auto 0.01 X10*3/uL (0.00-0.03); Imm Gran Pct Auto 0.1 % (0.0-0.4); Lymphocytes Absolute Auto 1.6 X10*3/uL (1.2-4.9); Lymphocytes Percent Auto 22.5 % (20-40); Mean Corpuscular HGB Conc 32.6 g/dl (31.0-35.0); Mean Corpuscular Hemoglobin 24.8 pg (27.0-33.0); Mean Corpuscular Volume 75.9 fL (80.0-98.0); Mean Platelet Volume 12.1 fL (9.4-12.3); Monocytes Absolute Auto 0.5 X10*3/uL (0.1-1.2); Monocytes Percent Auto 7.2 % (2-11); Neutrophils Absolute Auto 4.8 x10*3/uL (2.0-8.3); Neutrophils Percent Auto 68.3 % (45-73); Platelet Count 237 X10*3/uL (160-400); Red Blood Count 5.53 X10*6/uL (4.20-5.50); White Blood Count 7.1 X10*3/uL (4.8-10.8)
--- NOTE | 2024-01-16 16:09 | ED_ITS ---
HPI - General Adult General Chief complaint: Abdominal Pain Stated complaint: ABD PAIN Time Seen by Provider: 01/16/24 18:35 Source: patient Mode of arrival: ambulatory Limitations: no limitations History of Present Illness HPI narrative: Patient is status post gastric sleeve surgery 12/31 comes here for been constipated for last 1 week not able to move much bowel was at a clinic today for IV hydration and complaints of abdominal cramps patient has been taking Metamucil without much relief no nausea no vomiting Related Data Home Medications Medication Instructions Recorded Confirmed albuterol sulfate 90 mcg/actuation 2 puff inhalation QID PRN wheezing 11/14/22 01/01/24 aerosol inhaler (Ventolin HFA) fluticasone propionate 110 1 puff inhalation BID 11/14/22 01/01/24 mcg/actuation HFA aerosol inhaler (Flovent HFA) lisinopril 20 1 tab PO DAILY 11/14/22 01/01/24 mg-hydrochlorothiazide 12.5 mg tablet montelukast 10 mg tablet 10 mg PO DAILY 11/14/22 01/01/24 tolterodine 2 mg capsule,extended 2 mg PO DAILY 11/14/22 01/01/24 release 24 hr topiramate 50 mg tablet 50 mg PO BID 11/14/22 01/01/24 amitriptyline 25 mg tablet 25 mg PO BEDTIME 06/03/23 01/01/24 sodium chloride 0.65 % nasal spray 1 spray intranasal DAILY PRN 06/03/23 01/01/24 aerosol (Saline Mist) congestion trospium 60 mg capsule,extended 60 mg PO DAILY 06/03/23 12/12/23 release 24 hr amlodipine 5 mg tablet 5 mg PO DAILY 06/24/23 01/01/24 citalopram 20 mg tablet 20 mg PO DAILY 01/01/24 01/01/24 Previous Rx's Medication Instructions Recorded iron,carbonyl 65 mg-vitamin C 125 1 tab PO BEDTIME #30 tabs 12/26/22 mg tablet,delayed release (Vitron-C) ondansetron 4 mg disintegrating 4 mg PO Q12H nausea and vomiting 12/23/23 tablet #20 tabs pantoprazole 40 mg tablet,delayed 40 mg PO DAILY #90 tabs 12/23/23 release sucralfate 100 mg/mL oral 10 ml PO BID #600 mL 12/23/23 suspension docusate sodium 100 mg capsule 100 mg PO DAILY #90 caps 01/11/24 (Colace) polyethylene glycol 3350 17 17 g PO DAILY #510 grams 01/16/24 gram/dose oral powder (Miralax) Allergies Allergy/AdvReac Type Severity Reaction Status Date / Time diclofenac Allergy Severe Hallucinati Verified 01/16/24 16:11 ons duloxetine [From CYMBALTA] Allergy Severe Hallucinati Verified 01/16/24 16:11 ons droperidol [DROPERIDOL] Allergy Intermediate dizzy Verified 01/16/24 16:11 Review of Systems 2 Review of Systems: Yes all other systems are reviewed and are negative PMFSH Past Medical History Medical History LUQ pain FH: gastric cancer Abnormal ECG Pre-op evaluation H. pylori infection Rectal bleeding Family history of gastric carcinoma Arthritis Hx of transfusion of packed red blood cells Anemia Vertigo GERD (gastroesophageal reflux disease) Stress incontinence Pre-diabetes Migraine Elevated cholesterol Hiatal hernia Asthma Fibromyalgia Sleep apnea Depression HTN (hypertension) Surgical History S/P laparoscopic sleeve gastrectomy Hx of colonoscopy History of esophagogastroduodenoscopy (EGD) Hx of hernia repair Hx of hysterectomy Hx of cholecystectomy Family History Family History Mother Hypertension Arthritis Father No problems noted. Son No problems noted. 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3 F 97.9 F 97.9 F Pulse Rate 64 72 74 Respiratory Rate 16 17 17 Blood Pressure 108/56 L 119/72 118/56 L Pulse Oximetry 100 100 Oxygen Delivery Method Room Air Room Air 01/17/24 00:32 Temperature 98.4 F Pulse Rate 77 Respiratory Rate 12 Blood Pressure 113/79 Pulse Oximetry 99 Oxygen Delivery Method Room Air BMI result Body Mass Index 39.0 Appearance: Alert. Oriented X3. No acute distress. Eyes: PERRLA, No Nystagmus ENT: Pharynx normal. Oral Mucosa moist Neck: Normal inspection. Neck supple. CVS: Normal heart rate and rhythm. Pulses normal. Respiratory: No respiratory distress. Equal air entry bilateral, no wheezing/rales/rhonchi Abdomen: Soft and nontender. Bowel sounds are present, no mass palpable, no CVA tenderness Skin: Skin warm and dry. Normal skin color. Normal skin turgor. Extremities: No lower extremity edema. No calf tenderness Neuro: Oriented X 3. No motor deficit. No sensory deficit.No cerebellar signs , cranial nerves II-XII intact Course Course Course Narrative: This is an RME: Additional HPI, ROS, PE not included below will be deferred to primary provider. 58 year old female s/p sleeve gastrectomy ( in december 2023), fibromyalgia, mary on cppa. htn, obesity presents w/ concerns of abd pain, no bm in 6 days. Currently drinking shakes. Has an IV in place on arrival. Medications Administered Discontinued Medications Generic Name Dose Route Start Last Admin Trade Name Freq PRN Reason Stop Dose Admin Bisacodyl 10 mg 01/16/24 21:11 01/16/24 22:01 Bisacodyl 5 Mg Tablet.Dr PO 01/16/24 21:12 10 mg ONCE ONE Administration Sodium Chloride 1,000 mls @ 999 mls/hr 01/16/24 18:58 01/16/24 23:31 Ns IV 01/16/24 19:58 Infused .Q1H1M ONE Infusion Magnesium Hydroxide 30 ml 01/16/24 20:20 01/16/24 22:01 Milk Of Magnesia 30 Ml Oral.Susp PO 01/16/24 20:21 30 ml ONCE ONE Administration Morphine Sulfate 4 mg 01/16/24 18:58 01/16/24 19:25 Morphine Sulfate 4 Mg/Ml Cartridge IVPUSH 01/16/24 18:59 4 mg ONCE ONE Administration Protocol Ondansetron HCl 4 mg 01/16/24 18:58 01/16/24 19:25 Ondansetron Hcl 4 Mg/2 Ml Vial IVPUSH 01/16/24 18:59 4 mg ONCE ONE Administration Sodium Biphosphate/Sodium Phosphate 133 ml 01/16/24 22:36 01/16/24 23:31 Sodium Phosphate,[place]-Dibasic 133 Ml Enema GA 01/16/24 22:37 133 ml ONCE ONE Administration Medical Decision Making Medical Decision Making [facility] Narrative: Patient is status post gastric sleeve surgery on 12/31 with constipation unable to take p.o. fluids rectal lithium showed soft stool patient was given MiraLax and milk of magnesium and Fleet enema without much response case discussed with bariatric surgeon advised IV fluid and discharged after that Lab Data [facility] Lab Attestation statement: I reviewed the patient's lab results. 01/16/24 15:59 01/16/24 15:59 Labs: Lab Results 01/16/24 Range/Units 15:59 WBC 7.1 (4.8-10.8) X10*3/uL RBC 5.53 H D (4.20-5.50) X10*6/uL Hgb 13.7 D (12.0-16.0) g/dl Hct 42.0 D (37.0-47.0) % MCV 75.9 L (80.0-98.0) fL MCH 24.8 L (27.0-33.0) pg MCHC 32.6 (31.0-35.0) g/dl RDW 14.0 (11.0-16.0) % Plt Count 237 (160-400) X10*3/uL MPV 12.1 (9.4-12.3) fL Immature Gran % (Auto) 0.1 (0.0-0.4) % Neut % (Auto) 68.3 (45-73) % Lymph % (Auto) 22.5 (20-40) % [place] % (Auto) 7.2 (2-11) % Eos % (Auto) 1.3 (0-4) % Baso % (Auto) 0.6 (0-2) % Lymph # (Auto) 1.6 (1.2-4.9) X10*3/uL [place] # (Auto) 0.5 (0.1-1.2) X10*3/uL Eos # (Auto) 0.1 (0.0-0.4) X10*3/uL Baso # (Auto) 0.0 (0.0-0.2) X10*3/uL Abs Immat Gran (auto) 0.01 (0.00-0.03) X10*3/uL Absolute Neuts (auto) 4.8 (2.0-8.3) x10*3/uL Absolute Nucleated RBC 0.000 (0.0-0.012) X10*3/uL Nucleated RBC % (auto) 0.0 (0.0-0.2) /100WBC Sodium 138 (135-145) mmol/L Potassium 3.5 D (3.3-5.1) mmol/L Chloride 97 (96-108) mmol/L Carbon Dioxide 25 (22-29) mmol/L Anion Gap 20 (12-20) BUN 15 (9-16) mg/dL Creatinine 0.95 (0.5-1.4) mg/dL Estim Creat Clear Calc 77.2 Estimated GFR > 60 Random Glucose 104 (60-115) mg/dL Calcium 9.9 D (8.4-10.2) mg/dL Magnesium 1.8 (1.6-2.6) mg/dL Total Bilirubin 0.4 (0.0-1.0) mg/dL AST 32 H (5-31) U/L ALT 57 H (0-31) U/L Alkaline Phosphatase 75 (39-117) U/L Total Protein 8.3 H (6.5-8.0) g/dL Albumin 4.1 (3.5-5.0) g/dL Lipase 36 (8-78) U/L Independent Interpretation I performed an independent interpretation of an: Plain X-Ray Radiology Impression Discussion of test interpretation with radiology: I have reviewed the radiologist's reading. Discharge Plan Discharge Clinical Impression: S/P laparoscopic sleeve gastrectomy, Constipation Patient Disposition: Home, Self-Care Instructions: Constipation (ED), Laparoscopic Sleeve Gastrectomy (DC) Additional Instructions: Diet as advised by your bariatric surgeon MiraLax for severe constipation Continue Metamucil Prescriptions: New polyethylene glycol 3350 [Miralax] 17 gram/dose powder 17 g PO DAILY Qty: 510 0RF No Action Vitron-C 65 mg iron- 125 mg tablet,delayed release (DR/EC) 1 tab PO BEDTIME Qty: 30 5RF docusate sodium [Colace] 100 mg capsule 100 mg PO DAILY Qty: 90 0RF citalopram 20 mg tablet 20 mg PO DAILY albuterol sulfate [Ventolin HFA] 90 mcg/actuation HFA aerosol inhaler 2 puff inhalation QID PRN (Reason: wheezing) montelukast 10 mg tablet 10 mg PO DAILY topiramate 50 mg tablet 50 mg PO BID tolterodine 2 mg capsule,extended release 24hr 2 mg PO DAILY lisinopril-hydrochlorothiazide 20-12.5 mg tablet 1 tab PO DAILY Hold Instructions: Resume on 01/03/24. Check your blood pressure every morning as soon as you wake up and send it to Dr. Aden. Do no take the blood pressure medication if the blood pressure is below 120/70. Wait every day to hear back from Dr. Aden before you take the medication. fluticasone propionate [Flovent HFA] 110 mcg/actuation HFA aerosol inhaler 1 puff inhalation BID amitriptyline 25 mg tablet 25 mg PO BEDTIME Saline Mist 0.65 % aerosol,spray 1 spray intranasal DAILY PRN (Reason: congestion) trospium 60 mg capsule,extended release 24hr 60 mg PO DAILY amlodipine 5 mg tablet 5 mg PO DAILY Hold Instructions: Resume on 01/03/24. Check your blood pressure every morning as soon as you wake up and send it to Dr. Aden. Do no take the blood pressure medication if the blood pressure is below 120/70. Wait every day to hear back from Dr. Aden before you take the medication. pantoprazole 40 mg tablet,delayed release (DR/EC) 40 mg PO DAILY Qty: 90 0RF sucralfate 100 mg/mL suspension 10 ml PO BID Qty: 600 2RF ondansetron 4 mg tablet,disintegrating 4 mg PO Q12H Qty: 20 0RF Rx Instructions: Only take one every 12 hours as needed if you have nausea
[2024-01-16 16:23] LABS: Alanine Aminotransferase 57 U/L (0-31); Albumin Level 4.1 g/dL (3.5-5.0); Alkaline Phosphatase 75 U/L (39-117); Anion Gap 20 (12-20); Aspartate Amino Transferase 32 U/L (5-31); Bilirubin Total 0.4 mg/dL (0.0-1.0); Blood Urea Nitrogen 15 mg/dL (9-16); Calcium 9.9 mg/dL (8.4-10.2); Carbon Dioxide 25 mmol/L (22-29); Chloride 97 mmol/L (96-108); Creatinine Clr Calc Pharmacy 77.2; Estimated Glomerular Filt Rate > 60; Glucose Random 104 mg/dL (60-115); Lipase 36 U/L (8-78); Magnesium 1.8 mg/dL (1.6-2.6); Potassium 3.5 mmol/L (3.3-5.1); Sodium 138 mmol/L (135-145); Total Protein 8.3 g/dL (6.5-8.0)
[2024-01-16] MEDS: 0.9 % Sodium Chloride 1,000 ML 999 ML IV (19:25)
[2024-01-16] MEDS: Morphine Sulfate 4 MG/ML CARTRIDGE IVPUSH (19:25)
[2024-01-16] MEDS: ondansetron HCL 4 MG/2 ML VIAL IVPUSH (19:25)
[2024-01-16] MEDS: Milk of Magnesia 30 ML ORAL.SUSP PO (22:01)
[2024-01-16] MEDS: bisacodyL 5 MG TABLET.DR 10 MG PO (22:01)
[2024-01-16] MEDS: Sodium Phosphate,Mono-Dibasic 133 ML ENEMA PR (23:31)
--- NOTE | 2024-01-16 23:31 | PC.NURSE ---
ENEMA GIVEN COMMODE AT BEDSIDE.
--- NOTE | 2024-01-17 00:19 | PC.NURSE ---
PT UNABLE TO HAVE BM AFTER ENEMA ADMINISTERED. PT REFUSING DISCHARGE SHE STATES SHE DOESNT THINK HOME CARE PER DR SPRING INSTRUCTIONS WILL BE HELPFUL. DR. SPRING NOTIFIED AT BEDSIDE.
[2024-01-17 00:32] VITALS: BP 113/79; PULSE 77; RESP 12; TEMP 36.9; O2SAT 99
[2024-01-17] MEDS: 0.9 % Sodium Chloride 1,000 ML 999 ML IV (01:39)
--- NOTE | 2024-01-17 01:58 | PC.NURSE ---
LATE ENTRY NEW IV OBTAINED VIA U/S BY DR. SPRING. 2L NS ADMINISTERED PER DEC. NAD. RESP EVEN AND UNLABORED. VSS. AFEBRILE. CALL HARMON WITHIN REACH.
[2024-01-17] MEDS: polyethylene glycoL 3350 17 GM POWD.PACK PO (02:28)
[2024-01-17 04:00] VITALS: BP 115/64; PULSE 74; RESP 16; TEMP 37.2; O2SAT 98
== END 2024-01-17 04:00 | disposition home or self-care (01) ==
PROVIDERS: Physician Assistant; Emergency Provider Internal Medicine; PCP Internal Medicine
DX: K59.00 Constipation, unspecified (principal); R10.2 Pelvic and perineal pain; R11.2 Nausea with vomiting, unspecified; Z98.84 Bariatric surgery status; Z79.899 Other long term (current) drug therapy
CPT/HCPCS: 36415; 74018; 80053; 83690; 83735; 85025; 96361; 96374; 96375; 99284; 99285; J2270; J2405

== ENCOUNTER 2024-01-17 10:56 | Outpatient (AMB) | payer OTHER, SELFPAY ==
--- NOTE | 2024-01-17 10:58 | A.OFFVIS_ITS ---
Intake VS Expanded 01/17/24 11:07 01/17/24 11:10 01/17/24 11:12 BP 122/73 116/71 133/74 Blood Pressure Location Rt brachial Rt brachial Rt brachial Blood Pressure Position Sitting Standing Supine Pulse 84 81 75 Pulse Source Pulse Oximeter Pulse Oximeter Pulse Oximeter Temp 95.9 F L 95.9 F L 95.9 F L Temperature Source Tympanic Tympanic Tympanic Pulse Oximetry 99 99 97 Oxygen Delivery Method Room Air Room Air Room Air Intake Visit Reasons: (OV) PO LSG 01/01/24 Allergies diclofenac Allergy (Severe, Verified 01/17/24 11:15) Hallucinations duloxetine [From CYMBALTA] Allergy (Severe, Verified 01/17/24 11:15) Hallucinations droperidol [DROPERIDOL] Allergy (Intermediate, Verified 01/17/24 11:15) dizzy HPI HPI Comments History of Present Illness Details Pt is 2 weeks s/p LSG (01/01/24), was seen in ED at [facility] last night due to constipation, and feeling weak and tired. Her labs were wnl and her VSS, she received IVF and was discharged. I spoke to her on the phone?while she was there and she has not been having the 3 (1 scoops each) shakes and bar that she was supposed to, only having about 24 ounces fluid in total, stating she was too full',.she is also not sleeping enough.?She is concerned about not having BM's which?I explained to her.? I saw her in the office today. She looks good, orthostatics done - all normal. She drank half of a shake properly while in the office. She normally wakes at 10 am - bed by MN - with CPAP nightly 10am - pantoprazole, carafate? and colac e 11 am - first shake over 2 hours 3pm - 5pm - second shake 7pm - 9pm - third?shake She will mix psyllium powder into one of her shakes per day. Will have water and her 1 btl of Gatorade - 16 ounces in total?inbetween her shakes. Bar afterwards if she can. She is obsessed?with when she can start food - I told her if she wants to chew she can have the bar.? [facility] Medical History LUQ pain FH: gastric cancer Abnormal ECG Pre-op evaluation H. pylori infection Rectal bleeding Family history of gastric carcinoma Arthritis Hx of transfusion of packed red blood cells Anemia Vertigo GERD (gastroesophageal reflux disease) Stress incontinence Pre-diabetes Migraine Elevated cholesterol Hiatal hernia Asthma Fibromyalgia Sleep apnea Depression HTN (hypertension) Surgical History S/P laparoscopic sleeve gastrectomy Hx of colonoscopy History of esophagogastroduodenoscopy (EGD) Hx of hernia repair Hx of hysterectomy Hx of cholecystectomy Family History Mother Hypertension Arthritis Father No problems noted. Son No problems noted. 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 Please see HPI for plan. Dr Lemus has been made aware. Arden will call her over the weekend to check in on her. She is scheduled for follow up with me in the office for 01/21 and encouraged her to walk 10 minutes qid (states she can't do more now due to pain in her left leg). Coding Level of Care Code Global (58793) Diagnoses S/P laparoscopic sleeve gastrectomy Z98.84
[2024-01-17 11:07] VITALS: BP 122/73; PULSE 84; TEMP 35.5; O2SAT 99
[2024-01-17 11:10] VITALS: BP 116/71; PULSE 81; TEMP 35.5; O2SAT 99
[2024-01-17 11:12] VITALS: BP 133/74; PULSE 75; TEMP 35.5; O2SAT 97
== END 2024-01-17 12:01 | disposition home or self-care (01) ==
PROVIDERS: PCP Internal Medicine; Visit Provider Physician Assistant
DX: Z98.84 Bariatric surgery status (principal)
CPT/HCPCS: 99024

== ENCOUNTER → 2024-01-17 10:56 | Outpatient (BNVA) | payer OTHER, SELFPAY | PROVIDERS: PCP Internal Medicine; Visit Provider Physician Assistant | DX: Z48.815 Encounter for surgical aftercare following surgery on the digestive system (principal); Z71.3 Dietary counseling and surveillance; Z98.84 Bariatric surgery status | CPT/HCPCS: 99212 ==

== ENCOUNTER 2024-01-22 12:02 | Outpatient (AMB) | payer OTHER, SELFPAY ==
--- NOTE | 2024-01-22 12:03 | MHC.OFFVISWM ---
Intake VS Expanded 01/22/24 12:09 BP 133/99 H Blood Pressure Location Rt brachial Blood Pressure Position Sitting Pulse 79 Pulse Source Pulse Oximeter Temp 97.6 F Temperature Source Tympanic Pulse Oximetry 100 Oxygen Delivery Method Room Air Height 5 ft 4 in Weight 232 lb 3.2 oz BMI 39.9 Body Fat % 43.5 Body Fat Mass 101.0 Fat Free Mass 131.2 Visceral Fat Rating 13.0 Body Water % 40.2 Body Water Mass 93.2 Muscle Mass/Score 124.6 Basal Metabolic Rate/Score 1,822 Intake Visit Reasons: (OV) PO LSG 01/01/24 Allergies diclofenac Allergy (Severe, Verified 01/17/24 11:15) Hallucinations duloxetine [From CYMBALTA] Allergy (Severe, Verified 01/17/24 11:15) Hallucinations droperidol [DROPERIDOL] Allergy (Intermediate, Verified 01/17/24 11:15) dizzy HPI HPI Comments History of Present Illness Details Pt is 3 weeks s/p LSG and doing much better now. Has had limited weight loss since surgery - due to not getting proper nutrition until this past week. 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 Dr Lemus changed her plan yesterday to --2 4:1 shakes (2 scoops each) and 1 protien bar. She needs about 105 grams protein per day. Walking outside only. [facility] Medical History LUQ pain FH: gastric cancer Abnormal ECG Pre-op evaluation H. pylori infection Rectal bleeding Family history of gastric carcinoma Arthritis Hx of transfusion of packed red blood cells Anemia Vertigo GERD (gastroesophageal reflux disease) Stress incontinence Pre-diabetes Migraine Elevated cholesterol Hiatal hernia Asthma Fibromyalgia Sleep apnea Depression HTN (hypertension) Surgical History S/P laparoscopic sleeve gastrectomy Hx of colonoscopy History of esophagogastroduodenoscopy (EGD) Hx of hernia repair Hx of hysterectomy Hx of cholecystectomy Family History Mother Hypertension Arthritis Father No problems noted. Son No problems noted. 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 We discussed her havin am- 4:1 2 scoops with UAM 2pm - same shake 5pm - bar 7pm- Orgain shake with UAM She will make sure she is getting at least 40 oz fluid in each day. She does not have the money to purchase a treadmill and wants to restart the exercise that she did before surgery. [employer] videos 2 miles (30 mintues) daily. She will have follow with Laureen next week. Coding Level of Care Code Global (51060) Diagnoses S/P laparoscopic sleeve gastrectomy Z98.84
[2024-01-22 12:09] VITALS: BP 133/99; PULSE 79; TEMP 36.4; O2SAT 100; BMI 39.9
== END 2024-01-22 12:47 | disposition home or self-care (01) ==
PROVIDERS: PCP Internal Medicine; Visit Provider Physician Assistant
DX: Z98.84 Bariatric surgery status (principal)
CPT/HCPCS: 99024

== ENCOUNTER → 2024-01-22 12:02 | Outpatient (BNVA) | payer OTHER, SELFPAY | PROVIDERS: PCP Internal Medicine; Visit Provider Physician Assistant | DX: Z48.815 Encounter for surgical aftercare following surgery on the digestive system (principal); Z98.84 Bariatric surgery status | CPT/HCPCS: 99212 ==

== ENCOUNTER 2024-02-06 13:15 | Outpatient (AMB) | payer OTHER, SELFPAY ==
--- NOTE | 2024-02-06 13:34 | MHC.OFFVISWM ---
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 Allergies diclofenac Allergy (Severe, Verified 01/17/24 11:15) Hallucinations duloxetine [From CYMBALTA] Allergy (Severe, Verified 01/17/24 11:15) Hallucinations droperidol [DROPERIDOL] Allergy (Intermediate, Verified 01/17/24 11:15) dizzy Medication List - Last Reconciled 02/06/24 by LEONARDO Redding albuterol sulfate 90 mcg/actuation (Ventolin HFA) 2 puffs inhalation QID PRN amitriptyline 25 mg PO BEDTIME amlodipine 5 mg PO DAILY citalopram 20 mg PO DAILY docusate sodium (Colace) 100 mg PO DAILY fluticasone propionate 110 mcg/actuation (Flovent HFA) 1 puff inhalation BID iron,carbonyl-vitamin C 65 mg iron- 125 mg (Vitron-C) 1 tab PO BEDTIME lisinopril-hydrochlorothiazide 20-12.5 mg 1 tab PO DAILY montelukast 10 mg PO DAILY ondansetron 4 mg PO Q12H pantoprazole 40 mg PO DAILY polyethylene glycol 3350 (Miralax) 17 grams PO DAILY sodium chloride 0.65% (Saline Mist) 1 spray intranasal DAILY PRN sucralfate 10 mL PO BID tolterodine ER 2 mg PO DAILY topiramate 50 mg PO BID trospium ER 60 mg PO DAILY HPI HPI Comments History of Present Illness Details This?is a?59?yo female who is s/p LSG 01/01/2024. Presents for 5 week post op visit. Weight at last visit on 01/22/2024 was 232.2 pounds with a BMI of 39.9, weight today is 226 pounds, representing a 7.2 pound weight loss with a BMI today of 38.8.? No complaints of emesis, abdominal pain or reflux, or constipation. Occasional nausea with protein shakes, Lisinopril/HCTZ on hold. Wants to use protein shakes she used prior to surgery (Orgain). Present meal plan includes: 11 am- 4:1 2 scoops with UAM 2pm - same shake 5pm - Celebrate bar 7pm- Orgain shake with UAM Exercise routine includes: videos at home PFSH Medical History LUQ pain FH: gastric cancer Abnormal ECG Pre-op evaluation H. pylori infection Rectal bleeding Family history of gastric carcinoma Arthritis Hx of transfusion of packed red blood cells Anemia Vertigo GERD (gastroesophageal reflux disease) Stress incontinence Pre-diabetes Migraine Elevated cholesterol Hiatal hernia Asthma Fibromyalgia Sleep apnea Depression HTN (hypertension) Surgical History S/P laparoscopic sleeve gastrectomy Hx of colonoscopy History of esophagogastroduodenoscopy (EGD) Hx of hernia repair Hx of hysterectomy Hx of cholecystectomy Family History Mother Hypertension Arthritis Father No problems noted. Son No problems noted. 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 10am- Orgain 2 scoops in 8oz UAM 12:30pm- Celebrate bar 3pm- another shake 6pm- 2 forks protein (scrambled egg, GY or CC- if well tolerated can try soft meats after 1 week or so) 7pm- Celebrate bar RTC 4 weeks. Patient is obese and is not considered stable at this time. I spent a total of 30 minutes reviewing/updating records, examining the patient and counseling the patient on weight management as detailed above. Telehealth Telehealth Location of provider rendering services: practice address Location of patient: address on file Patient Identification confirmed using: Name, : Yes Telehealth method: voice only Patient verbally consented to treatment: Yes Patient verbally consented to billing insurance company: Yes Patient informed of any privacy concerns related to visit: Yes Minutes spent on Phone/Video with Pt.: 22 Coding Level of Care Code Tele Est Pt Level 4 (09761) Diagnoses S/P laparoscopic sleeve gastrectomy Z98.84 Obesity E66.9
[2024-02-06 13:48] VITALS: BMI 38.8
== END 2024-02-06 14:02 | disposition home or self-care (01) ==
LOC: HO.HBS 13:15
PROVIDERS: PCP Internal Medicine; Visit Provider Physician Assistant Surgical
DX: E66.9 Obesity, unspecified (principal); Z68.38 Body mass index [BMI] 38.0-38.9, adult; Z90.3 Acquired absence of stomach [part of]; Z98.84 Bariatric surgery status
CPT/HCPCS: 99024

== ENCOUNTER → 2024-02-06 13:15 | Outpatient (BNVA) | payer OTHER, SELFPAY | PROVIDERS: PCP Internal Medicine; Visit Provider Physician Assistant Surgical ==

== ENCOUNTER 2024-03-12 11:28 | Outpatient (AMB) | payer OTHER, SELFPAY ==
--- NOTE | 2024-03-12 11:34 | MHC.NURWM ---
Intake VS Expanded 03/12/24 11:50 BP 156/82 H Blood Pressure Location Rt brachial Blood Pressure Position Sitting Pulse 68 Pulse Source Pulse Oximeter Temp 96.8 F Temperature Source Tympanic Pulse Oximetry 100 Oxygen Delivery Method Room Air Height 5 ft 4 in Weight 222 lb 6.4 oz BMI 38.2 Body Fat % 38.4 Body Fat Mass 85.4 Fat Free Mass 137.0 Visceral Fat Rating 12.0 Body Water % 43.8 Body Water Mass 97.2 Muscle Mass/Score 130.0 Basal Metabolic Rate/Score 1,869 Intake Visit Reasons: (OV)PO LSG 01/01/24 Allergies diclofenac Allergy (Severe, Verified 03/12/24 11:56) Hallucinations duloxetine [From CYMBALTA] Allergy (Severe, Verified 03/12/24 11:56) Hallucinations droperidol [DROPERIDOL] Allergy (Intermediate, Verified 03/12/24 11:56) dizzy Coding
[2024-03-12 11:50] VITALS: BP 156/82; PULSE 68; TEMP 36; O2SAT 100; BMI 38.2
--- NOTE | 2024-03-12 12:13 | A.OFFVIS_ITS ---
VS Expanded 03/12/24 11:50 03/12/24 12:14 BP 156/82 H Blood Pressure Location Rt brachial Blood Pressure Position Sitting Pulse 68 Pulse Source Pulse Oximeter Temp 96.8 F Temperature Source Tympanic Pulse Oximetry 100 Oxygen Delivery Method Room Air Height 5 ft 4 in Weight 222 lb 6.4 oz BMI 38.2 38.2 Body Fat % 38.4 Body Fat Mass 85.4 Fat Free Mass 137.0 Visceral Fat Rating 12.0 Body Water % 43.8 Body Water Mass 97.2 Muscle Mass/Score 130.0 Basal Metabolic Rate/Score 1,869 Intake Visit Reasons: (OV)PO LSG 01/01/24 Allergies diclofenac Allergy (Severe, Verified 03/12/24 11:56) Hallucinations duloxetine [From CYMBALTA] Allergy (Severe, Verified 03/12/24 11:56) Hallucinations droperidol [DROPERIDOL] Allergy (Intermediate, Verified 03/12/24 11:56) dizzy Medication List - Last Reconciled 03/12/24 by LEONARDO Redding albuterol sulfate 90 mcg/actuation (Ventolin HFA) 2 puffs inhalation QID PRN amitriptyline 25 mg PO BEDTIME amlodipine 5 mg PO DAILY citalopram 20 mg PO DAILY docusate sodium (Colace) 100 mg PO DAILY fluticasone propionate 110 mcg/actuation (Flovent HFA) 1 puff inhalation BID iron,carbonyl-vitamin C 65 mg iron- 125 mg (Vitron-C) 1 tab PO BEDTIME lisinopril-hydrochlorothiazide 20-12.5 mg 1 tab PO DAILY montelukast 10 mg PO DAILY pantoprazole 40 mg PO DAILY polyethylene glycol 3350 (Miralax) 17 grams PO DAILY sodium chloride 0.65% (Saline Mist) 1 spray intranasal DAILY PRN sucralfate 10 mL PO BID tolterodine ER 2 mg PO DAILY topiramate 50 mg PO BID trospium ER 60 mg PO DAILY HPI Comments Details: This?is a?59?yo female who is s/p LSG 01/01/2024. Presents for 9 week post op visit. Weight at last visit on 02/06/2024 was 226 pounds with a BMI of 38.8, weight today is 222.4 pounds, representing a 3.6 pound weight loss with a BMI today of 38.2.? No complaints of nausea, emesis, abdominal pain or reflux, or constipation. Pt reports some joint/bone pain. Started 2 weeks ago. Also has noticed bruising. This has limited her exercising, has tried to continue videos. Present meal plan includes: 10am- Orgain 2 scoops in 8oz UAM 12:30pm- Celebrate bar 3pm- another shake 6pm- 2 forks protein (scrambled egg, GY or CC- if well tolerated can try soft meats after 1 week or so) 7pm- Celebrate bar taking MVI and iron pt reports she has been trying to eat rice and did not tolerate. Changed protein bar to Zone Exercise routine includes: videos at home [facility] Medical History LUQ pain FH: gastric cancer Abnormal ECG Pre-op evaluation H. pylori infection Rectal bleeding Family history of gastric carcinoma Arthritis Hx of transfusion of packed red blood cells Anemia Vertigo GERD (gastroesophageal reflux disease) Stress incontinence Pre-diabetes Migraine Elevated cholesterol Hiatal hernia Asthma Fibromyalgia Sleep apnea Depression HTN (hypertension) Surgical History S/P laparoscopic sleeve gastrectomy Hx of colonoscopy History of esophagogastroduodenoscopy (EGD) Hx of hernia repair Hx of hysterectomy Hx of cholecystectomy Family History Mother Hypertension Arthritis Father No problems noted. Son No problems noted. 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) Alcohol intake: never Patient Tobacco Use Status: Never used Tobacco service: No Physical Exam Vital Signs: Last Vital Signs Temp 96.8 F 03/12/24 11:50 Pulse 68 03/12/24 11:50 BP 156/82 H 03/12/24 11:50 Pulse Ox 100 03/12/24 11:50 Oxygen Delivery Method Room Air 03/12/24 11:50 BMI result Body Mass Index 38.2 Quality Reporting (2019) Adult (CMS 138/2//69) Body Mass Index: 38.2 Assessment & Plan Assessment & Plan (1) Obesity: Code(s): E66.9 - Obesity, unspecified Category: Medical (2) S/P laparoscopic sleeve gastrectomy: Code(s): Z98.84 - Bariatric surgery status Category: Medical Plan Wrote out meal plan for pt to take home. Discussed not eating off plan items like rice, keeping to prescribed portion sizes, finishing all protein items even if not hungry as long as she is not nauseated. Will order labs for complaints of easy bruising. Provided my phone # to pt and encouraged her to reach out between appts with any concerns. RTC 1 month. Patient is obese and is not considered stable at this time. I spent a total of 30 minutes reviewing/updating records, examining the patient and counseling the patient on weight management as detailed above. Orders: Orders Complete Blood Count Auto Diff Today Z98.84 - Bariatric surgery status C Reactive Protein Today Z98.84 - Bariatric surgery status Vitamin A Today Z98.84 - Bariatric surgery status TSH reflex Free T4 Today Z98.84 - Bariatric surgery status Insulin Today Z98.84 - Bariatric surgery status Hemoglobin A1c Today Z98.84 - Bariatric surgery status Lipid Panel Today Z98.84 - Bariatric surgery status IRON PROFILE Today Z98.84 - Bariatric surgery status Comprehensive Met. Panel Today Z98.84 - Bariatric surgery status Vitamin B12 and Folate Today Z98.84 - Bariatric surgery status Zinc Today Z98.84 - Bariatric surgery status Vitamin B1 Today Z98.84 - Bariatric surgery status Ferritin Today Z98.84 - Bariatric surgery status Vitamin D 25-OH Total Today Z98.84 - Bariatric surgery status
[2024-03-12 12:14] VITALS: BMI 38.2
== END 2024-03-12 12:40 | disposition home or self-care (01) ==
PROVIDERS: PCP Internal Medicine; Visit Provider Physician Assistant Surgical
DX: E66.9 Obesity, unspecified (principal); Z68.38 Body mass index [BMI] 38.0-38.9, adult; Z90.3 Acquired absence of stomach [part of]; Z98.84 Bariatric surgery status
CPT/HCPCS: 99024

== ENCOUNTER 2024-03-13 09:46 | Outpatient (REF) | payer OTHER, SELFPAY ==
[2024-03-13 09:58] LABS: MANUAL DIFF FLAG NO
[2024-03-13 11:00] LABS: Basophils Percent Auto 0.6 % (0-2); Eosinophils Absolute Auto 0.2 X10*3/uL (0.0-0.4); Hematocrit 32.7 % (37.0-47.0); Hemoglobin 10.6 g/dl (12.0-16.0); Imm Gran Abs Auto 0.01 X10*3/uL (0.00-0.03); Imm Gran Pct Auto 0.2 % (0.0-0.4); Lymphocytes Absolute Auto 1.4 X10*3/uL (1.2-4.9); Lymphocytes Percent Auto 28.1 % (20-40); Mean Corpuscular HGB Conc 32.4 g/dl (31.0-35.0); Mean Corpuscular Hemoglobin 25.8 pg (27.0-33.0); Mean Corpuscular Volume 79.6 fL (80.0-98.0); Monocytes Absolute Auto 0.4 X10*3/uL (0.1-1.2); Monocytes Percent Auto 7.6 % (2-11); Neutrophils Percent Auto 60.5 % (45-73); Platelet Count 236 X10*3/uL (160-400); Red Blood Count 4.11 X10*6/uL (4.20-5.50); Red Cell Distribution Width 16.6 % (11.0-16.0)
[2024-03-13 11:18] LABS: Estimated Average Glucose 114 mg/dL; Hemoglobin A1c % 5.6 % (<6.0)
[2024-03-13 11:55] LABS: Alanine Aminotransferase 17 U/L (0-31); Albumin Level 3.7 g/dL (3.5-5.0); Alkaline Phosphatase 55 U/L (39-117); Anion Gap 13 (12-20); Aspartate Amino Transferase 20 U/L (5-31); Bilirubin Total 0.5 mg/dL (0.0-1.0); Blood Urea Nitrogen 6 mg/dL (9-16); C Reactive Protein 0.26 mg/dL (< or = 0.50); Calcium 8.9 mg/dL (8.4-10.2); Carbon Dioxide 25 mmol/L (22-29); Chloride 108 mmol/L (96-108); Cholesterol 138 mg/dL (<200); Estimated Glomerular Filt Rate > 60; Glucose Random 85 mg/dL (60-115); HDL Cholesterol 53 mg/dL (>40); Iron 56 mcg/dL (30-160); LDL Cholesterol Calculated 63 mg/dL (<100); Percent Iron Saturation 20 % (15-50); Potassium 3.4 mmol/L (3.3-5.1); Sodium 143 mmol/L (135-145); Total Iron Binding Capacity 284 mcg/dL (228-428); Total Protein 6.9 g/dL (6.5-8.0); Triglycerides 113 mg/dL (<150); Unsaturated Iron Binding 228 ug/dL
[2024-03-13 12:01] LABS: Ferritin 155 ng/mL (10-250); Insulin 5 uU/mL (2-29); TSH reflex Free T4 0.87 uIU/mL (0.32-4.0); Vitamin D 25-OH Total 27.4 ng/mL (>30)
[2024-03-13 12:11] LABS: Folate 8.1 ng/mL (> or = 4.0); Vitamin B12 690 pg/mL (200-900)
[2024-03-17 15:34] LABS: Zinc 53 mcg/dL (60-130)
[2024-03-18 06:09] LABS: Vitamin A 30 mcg/dL (38-98)
[2024-03-19 15:48] LABS: Vitamin B1 6 nmol/L (8-30)
== END 2024-03-13 09:47 | disposition home or self-care (01) ==
LOC: HO.LAB 09:46
PROVIDERS: PCP Internal Medicine; Visit Provider Physician Assistant Surgical
DX: E66.9 Obesity, unspecified (principal); Z71.3 Dietary counseling and surveillance; Z98.84 Bariatric surgery status
CPT/HCPCS: 36415; 80053; 80061; 82306; 82607; 82728; 82746; 83036; 83525; 83540; 84425; 84443; 84590; 84630; 85025; 86140

== ENCOUNTER → 2024-04-20 10:51 | Outpatient (BNVA) | payer OTHER, SELFPAY | PROVIDERS: PCP Internal Medicine; Visit Provider Physician Assistant Surgical ==

== ENCOUNTER 2024-04-20 12:13 | Outpatient (AMB) | payer OTHER, SELFPAY ==
--- NOTE | 2024-04-20 12:07 | A.OFFVIS_ITS ---
Intake Visit Reasons: (TV)PO LSG 01/01/24 Allergies diclofenac Allergy (Severe, Verified 03/12/24 11:56) Hallucinations duloxetine [From CYMBALTA] Allergy (Severe, Verified 03/12/24 11:56) Hallucinations droperidol [DROPERIDOL] Allergy (Intermediate, Verified 03/12/24 11:56) dizzy Medication List - Last Reconciled 04/20/24 by LEONARDO Redding albuterol sulfate 90 mcg/actuation (Ventolin HFA) 2 puffs inhalation QID PRN amitriptyline 25 mg PO BEDTIME amlodipine 5 mg PO DAILY citalopram 20 mg PO DAILY docusate sodium (Colace) 100 mg PO DAILY fluticasone propionate 110 mcg/actuation (Flovent HFA) 1 puff inhalation BID iron,carbonyl-vitamin C 65 mg iron- 125 mg (Vitron-C) 1 tab PO BEDTIME lisinopril-hydrochlorothiazide 20-12.5 mg 1 tab PO DAILY montelukast 10 mg PO DAILY pantoprazole 40 mg PO DAILY polyethylene glycol 3350 (Miralax) 17 grams PO DAILY sodium chloride 0.65% (Saline Mist) 1 spray intranasal DAILY PRN sucralfate 10 mL PO BID tolterodine ER 2 mg PO DAILY topiramate 50 mg PO BID trospium ER 60 mg PO DAILY HPI Comments Details: This?is a?59?yo female who is s/p LSG 01/01/2024. Pt did come into office earlier today as she thought she had an in person appointment. She would like to reschedule for in person. Unsure of her weight today. Wants to know her lab results. Present meal plan includes: 10am- Orgain 2 scoops in 8oz UAM 12:30pm- Zone bar 3pm- another shake 6pm- 2 forks protein (scrambled egg, GY or CC- if well tolerated can try soft meats after 1 week or so) 7pm- Zone bar taking MVI and iron Exercise routine includes: videos at home [facility] Medical History LUQ pain FH: gastric cancer Abnormal ECG Pre-op evaluation H. pylori infection Rectal bleeding Family history of gastric carcinoma Arthritis Hx of transfusion of packed red blood cells Anemia Vertigo GERD (gastroesophageal reflux disease) Stress incontinence Pre-diabetes Migraine Elevated cholesterol Hiatal hernia Asthma Fibromyalgia Sleep apnea Depression HTN (hypertension) Surgical History S/P laparoscopic sleeve gastrectomy Hx of colonoscopy History of esophagogastroduodenoscopy (EGD) Hx of hernia repair Hx of hysterectomy Hx of cholecystectomy Family History Mother Hypertension Arthritis Father No problems noted. Son No problems noted. 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) Alcohol intake: never Patient Tobacco Use Status: Never used Tobacco service: No Telehealth Telehealth Telehealth Platform: Telephone Location of provider rendering services: other Location of patient: address on file Patient Identification confirmed using: Name, : Yes Telehealth method: voice only Patient verbally consented to treatment: Yes Patient verbally consented to billing insurance company: Yes Patient informed of any privacy concerns related to visit: Yes Assessment & Plan Assessment & Plan (1) Obesity: Code(s): E66.9 - Obesity, unspecified Category: Medical (2) S/P laparoscopic sleeve gastrectomy: Code(s): Z98.84 - Bariatric surgery status Category: Medical Plan Labs reviewed. H/H low, also vit A, B1, D, zinc. Pt has not been taking iron, says pharmacy did not refill her Rx. New Rx sent to restart. Vitamin Rxs also sent. Did not discuss meal plan or exercise regimen today, pt wants to be seen in person. To be scheduled for next available visit in person. Pt instructed to text me with any questions or concerns between now and next visit. Patient is obese and is not considered stable at this time. I spent a total of 25 minutes reviewing/updating records, examining the patient and counseling the patient on weight management as detailed above. Medications: New vitamin A palmitate 10,000 units PO DAILY 90 caps 3RF zinc gluconate 30 mg PO DAILY 90 tabs 3RF thiamine HCl (vitamin B1) 100 mg PO DAILY 90 tabs 3RF cholecalciferol (vitamin D3) 50 mcg PO DAILY 90 caps 3RF Refilled iron,carbonyl-vitamin C 65 mg iron- 125 mg (Vitron-C) 1 tab PO BEDTIME 90 tabs 3RF
== END 2024-04-20 12:27 | disposition home or self-care (01) ==
PROVIDERS: PCP Internal Medicine; Visit Provider Physician Assistant Surgical
DX: E66.9 Obesity, unspecified (principal); Z98.84 Bariatric surgery status
CPT/HCPCS: 99213

== ENCOUNTER 2024-07-01 10:42 | Outpatient (AMB) | payer OTHER, SELFPAY ==
--- NOTE | 2024-07-01 10:31 | MHC.OFFVISWM ---
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 Allergies diclofenac Allergy (Severe, Verified 03/12/24 11:56) Hallucinations duloxetine [From CYMBALTA] Allergy (Severe, Verified 03/12/24 11:56) Hallucinations droperidol [DROPERIDOL] Allergy (Intermediate, Verified 03/12/24 11:56) dizzy Medication List - Last Reconciled 07/01/24 by LEONARDO Redding albuterol sulfate 90 mcg/actuation (Ventolin HFA) 2 puffs inhalation QID PRN amitriptyline 25 mg PO BEDTIME amlodipine 5 mg PO DAILY cholecalciferol (vitamin D3) 50 mcg PO DAILY citalopram 20 mg PO DAILY docusate sodium (Colace) 100 mg PO DAILY fluticasone propionate 110 mcg/actuation (Flovent HFA) 1 puff inhalation BID iron,carbonyl-vitamin C 65 mg iron- 125 mg (Vitron-C) 1 tab PO BEDTIME lisinopril-hydrochlorothiazide 20-12.5 mg 1 tab PO DAILY montelukast 10 mg PO DAILY pantoprazole 40 mg PO DAILY polyethylene glycol 3350 (Miralax) 17 grams PO DAILY sodium chloride 0.65% (Saline Mist) 1 spray intranasal DAILY PRN sucralfate 10 mL PO BID thiamine HCl (vitamin B1) 100 mg PO DAILY tolterodine ER 2 mg PO DAILY topiramate 50 mg PO BID trospium ER 60 mg PO DAILY vitamin A palmitate 10,000 units PO DAILY zinc gluconate 100 mg PO DAILY 60 days HPI Comments Details: This?is a?59?yo female who is s/p LSG 01/01/2024. Presents for 6 month post op visit. Last recorded weight in February 222.4lbs; pt is going to office today for weight check as she thought this was an in person appt.? No complaints of nausea, emesis, abdominal pain or reflux, or constipation. Has not needed BP meds. Having some hair loss. Present meal plan includes: Orgain 2 scoops in 8oz UAM x 2- another shake one meal of solid protein taking MVI, additional vits and iron bars were giving her nausea Exercise routine includes: videos at home when I don't have leg pain [facility] Medical History LUQ pain FH: gastric cancer Abnormal ECG Pre-op evaluation H. pylori infection Rectal bleeding Family history of gastric carcinoma Arthritis Hx of transfusion of packed red blood cells Anemia Vertigo GERD (gastroesophageal reflux disease) Stress incontinence Pre-diabetes Migraine Elevated cholesterol Hiatal hernia Asthma Fibromyalgia Sleep apnea Depression HTN (hypertension) Surgical History S/P laparoscopic sleeve gastrectomy Hx of colonoscopy History of esophagogastroduodenoscopy (EGD) Hx of hernia repair Hx of hysterectomy Hx of cholecystectomy Family History Mother Hypertension Arthritis Father No problems noted. Son No problems noted. 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) Alcohol intake: never Patient Tobacco Use Status: Never used Tobacco service: No Telehealth Telehealth Telehealth Platform: Telephone Location of provider rendering services: other Location of patient: other Patient Identification confirmed using: Name, : Yes Telehealth method: voice only Patient verbally consented to treatment: Yes Patient verbally consented to billing insurance company: Yes Patient informed of any privacy concerns related to visit: Yes Minutes spent on Phone/Video with Pt.: 20 Assessment & Plan Assessment & Plan (1) Obesity: Code(s): E66.9 - Obesity, unspecified Category: Medical (2) S/P laparoscopic sleeve gastrectomy: Code(s): Z98.84 - Bariatric surgery status Category: Medical Plan Pt to have weight check done after our phone visit today. Continue vitamin supplementation. RTC 2 months (in person visit if possible), can recheck labs at that time. I spent a total of 30 minutes reviewing/updating records, examining the patient and counseling the patient on weight management as detailed above.
== END 2024-07-01 10:57 | disposition home or self-care (01) ==
LOC: HO.HBS 10:43
PROVIDERS: PCP Internal Medicine; Visit Provider Physician Assistant Surgical
DX: E66.9 Obesity, unspecified (principal); Z98.84 Bariatric surgery status
CPT/HCPCS: 99214

== ENCOUNTER → 2024-07-01 10:42 | Outpatient (BNVA) | payer OTHER, SELFPAY | PROVIDERS: PCP Internal Medicine; Visit Provider Physician Assistant Surgical ==

== ENCOUNTER 2024-09-03 10:04 | Outpatient (AMB) | payer OTHER, SELFPAY ==
--- NOTE | 2024-09-03 10:00 | A.OFFVIS_ITS ---
VS Expanded 09/03/24 10:13 Height 5 ft 4 in Weight 198 lb BMI 34.0 Intake Visit Reasons: (TV) PO LSG 01/01/24 Intake Note: [id number] Mendel Pizarro Making Department Preparer Services: Making Department Preparer Present Information Interpreted: clinical only Allergies diclofenac Allergy (Severe, Verified 03/12/24 11:56) Hallucinations duloxetine [From CYMBALTA] Allergy (Severe, Verified 03/12/24 11:56) Hallucinations droperidol [DROPERIDOL] Allergy (Intermediate, Verified 03/12/24 11:56) dizzy Medication List - Last Reconciled 09/03/24 by LEONARDO Redding albuterol sulfate 90 mcg/actuation (Ventolin HFA) 2 puffs inhalation QID PRN amitriptyline 25 mg PO BEDTIME amlodipine 5 mg PO DAILY cholecalciferol (vitamin D3) 50 mcg PO DAILY citalopram 20 mg PO DAILY docusate sodium (Colace) 100 mg PO DAILY fluticasone propionate 110 mcg/actuation (Flovent HFA) 1 puff inhalation BID iron,carbonyl-vitamin C 65 mg iron- 125 mg (Vitron-C) 1 tab PO BEDTIME lisinopril-hydrochlorothiazide 20-12.5 mg 1 tab PO DAILY montelukast 10 mg PO DAILY pantoprazole 40 mg PO DAILY polyethylene glycol 3350 (Miralax) 17 grams PO DAILY sodium chloride 0.65% (Saline Mist) 1 spray intranasal DAILY PRN sucralfate 10 mL PO BID thiamine HCl (vitamin B1) 100 mg PO DAILY tolterodine ER 2 mg PO DAILY topiramate 50 mg PO BID trospium ER 60 mg PO DAILY vitamin A palmitate 10,000 units PO DAILY zinc gluconate 100 mg PO DAILY 60 days HPI Comments Details: This?is a?59?yo female who is s/p LSG 01/01/2024. Presents for 8 month post op visit. Last recorded weight 222.4 in February; down to 198 on home scale today. Pt reports she was sick recently, had to go to ER twice; weakness and dehydration. Pt thinks she was not taking enough fluids in; was given IV hydration with vitamins. Had a few episodes of vomiting, now trying to go much slower with fluid intake as she reports she was told by another doctor she was drinking too fast. Got an javan on her phone to help remind her to drink more often. Was given a 10 day course of dicyclomine for colon inflammation seen on imaging according to patient. Present meal plan includes: Orgain 2 scoops in 8oz UAM x 2 one meal of solid protein- can tolerate chicken, eggs; no pork taking MVI, additional vits and iron Exercise routine includes: videos at home when I don't have leg pain Pt reports issues of excess skin of abdomen and arms/legs. Notices chafing of arms and legs from where skin rubs against the body during movement. Notes difficulty with movements like walking, bending/squatting as excess skin of the belly gets in the way and limits her mobility, feels very uncomfortable. Having worsening leg pain when she walks due to the heaviness of the excess skin of her thighs. [facility] Medical History LUQ pain FH: gastric cancer Abnormal ECG Pre-op evaluation H. pylori infection Rectal bleeding Family history of gastric carcinoma Arthritis Hx of transfusion of packed red blood cells Anemia Vertigo GERD (gastroesophageal reflux disease) Stress incontinence Pre-diabetes Migraine Elevated cholesterol Hiatal hernia Asthma Fibromyalgia Sleep apnea Depression HTN (hypertension) Surgical History S/P laparoscopic sleeve gastrectomy Hx of colonoscopy History of esophagogastroduodenoscopy (EGD) Hx of hernia repair Hx of hysterectomy Hx of cholecystectomy Family History Mother Hypertension Arthritis Father No problems noted. Son No problems noted. 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) Alcohol intake: never Patient Tobacco Use Status: Never used Tobacco service: No Telehealth Telehealth Telehealth Platform: Telephone Location of provider rendering services: other Location of patient: address on file Patient Identification confirmed using: Name, : Yes Telehealth method: voice only Patient verbally consented to treatment: Yes Patient verbally consented to billing insurance company: Yes Patient informed of any privacy concerns related to visit: Yes Minutes spent on Phone/Video with Pt.: 18 Assessment & Plan Assessment & Plan (1) Obesity: Code(s): E66.9 - Obesity, unspecified Category: Medical (2) S/P laparoscopic sleeve gastrectomy: Code(s): Z98.84 - Bariatric surgery status Category: Surgical Plan Discussed taking in solid proteins that are well tolerated, avoid proteins that are tougher/difficult textures. Discussed the importance of eating/drinking slowly to ensure all protein is taking in and to avoid N/V. Due for labs, ordered. Discussed requirements for skin removal surgery, BMI closer to 27 (157lbs). RTC 2 months. I spent a total of 30 minutes reviewing/updating records, examining the patient and counseling the patient on weight management as detailed above. Orders: Orders Complete Blood Count Auto Diff Today Z98.84 - Bariatric surgery status IRON PROFILE Today Z98.84 - Bariatric surgery status Vitamin B12 and Folate Today Z98.84 - Bariatric surgery status Zinc Today Z98.84 - Bariatric surgery status Vitamin B1 Today Z98.84 - Bariatric surgery status Ferritin Today Z98.84 - Bariatric surgery status Vitamin D 25-OH Total Today Z98.84 - Bariatric surgery status Insulin Today Z98.84 - Bariatric surgery status Hemoglobin A1c Today Z98.84 - Bariatric surgery status Lipid Panel Today Z98.84 - Bariatric surgery status Comprehensive Met. Panel Today Z98.84 - Bariatric surgery status C Reactive Protein Today Z98.84 - Bariatric surgery status Vitamin A Today Z98.84 - Bariatric surgery status TSH reflex Free T4 Today Z98.84 - Bariatric surgery status
[2024-09-03 10:13] VITALS: BMI 34.0
== END 2024-09-03 10:33 | disposition home or self-care (01) ==
LOC: HO.HBS 10:04
PROVIDERS: PCP Internal Medicine; Visit Provider Physician Assistant Surgical
DX: E66.811 Obesity, class 1 (principal); Z68.34 Body mass index [BMI] 34.0-34.9, adult; Z98.84 Bariatric surgery status
CPT/HCPCS: 99214; G2211

== ENCOUNTER 2024-09-15 09:09 | Outpatient (REF) | payer OTHER, SELFPAY ==
[2024-09-15 09:54] LABS: MANUAL DIFF FLAG NO
[2024-09-15 10:15] LABS: Basophils Percent Auto 0.7 % (0-2); Eosinophils Absolute Auto 0.2 X10*3/uL (0.0-0.4); Eosinophils Percent Auto 5.6 % (0-4); Hematocrit 33.2 % (37.0-47.0); Hemoglobin 10.6 g/dl (12.0-16.0); Imm Gran Abs Auto 0.01 X10*3/uL (0.00-0.03); Imm Gran Pct Auto 0.2 % (0.0-0.4); Lymphocytes Absolute Auto 1.7 X10*3/uL (1.2-4.9); Lymphocytes Percent Auto 39.9 % (20-40); Mean Corpuscular HGB Conc 31.9 g/dl (31.0-35.0); Mean Corpuscular Hemoglobin 25.1 pg (27.0-33.0); Mean Corpuscular Volume 78.5 fL (80.0-98.0); Mean Platelet Volume 11.5 fL (9.4-12.3); Monocytes Absolute Auto 0.3 X10*3/uL (0.1-1.2); Monocytes Percent Auto 6.3 % (2-11); Neutrophils Percent Auto 47.3 % (45-73); Platelet Count 186 X10*3/uL (160-400); Red Blood Count 4.23 X10*6/uL (4.20-5.50); Red Cell Distribution Width 14.8 % (11.0-16.0); White Blood Count 4.1 X10*3/uL (4.8-10.8)
[2024-09-15 10:27] LABS: Estimated Average Glucose 114 mg/dL; Hemoglobin A1C 109.2999 umol/L; Hemoglobin A1c % 5.6 % (<6.0); Total Hemoglobin (HGBA1C) 2890.9852 umol/L
[2024-09-15 12:03] LABS: Folate 12.9 ng/mL (> or = 4.0); Vitamin B12 698 pg/mL (200-900)
[2024-09-15 12:05] LABS: Alanine Aminotransferase 20 U/L (0-31); Albumin Level 3.7 g/dL (3.5-5.0); Alkaline Phosphatase 60 U/L (39-117); Anion Gap 7 (12-20); Aspartate Amino Transferase 26 U/L (5-31); Bilirubin Total 0.5 mg/dL (0.0-1.0); Blood Urea Nitrogen 10 mg/dL (9-16); C Reactive Protein < 0.10 mg/dL (< or = 0.50); Calcium 8.8 mg/dL (8.4-10.2); Carbon Dioxide 30 mmol/L (22-29); Chloride 107 mmol/L (96-108); Cholesterol 138 mg/dL (<200); Estimated Glomerular Filt Rate > 60; Glucose Random 90 mg/dL (60-115); HDL Cholesterol 66 mg/dL (>40); Iron 56 mcg/dL (30-160); LDL Cholesterol Calculated 58 mg/dL (<100); Percent Iron Saturation 20 % (15-50); Potassium 3.5 mmol/L (3.3-5.1); Sodium 140 mmol/L (135-145); Total Iron Binding Capacity 274 mcg/dL (228-428); Total Protein 6.8 g/dL (6.5-8.0); Triglycerides 71 mg/dL (<150); Unsaturated Iron Binding 218 ug/dL
[2024-09-15 12:10] LABS: Ferritin 173 ng/mL (10-250); TSH reflex Free T4 0.75 uIU/mL (0.32-4.0); Vitamin D 25-OH Total 25.7 ng/mL (>30)
[2024-09-15 12:41] LABS: Insulin 3 uU/mL (2-29)
[2024-09-18 13:34] LABS: Zinc 74 mcg/dL (60-130)
[2024-09-19 18:04] LABS: Vitamin A 31 mcg/dL (38-98)
[2024-09-23 06:10] LABS: Vitamin B1 24 nmol/L (8-30)
== END 2024-09-15 09:10 | disposition home or self-care (01) ==
LOC: HO.LAB 09:09
PROVIDERS: PCP Internal Medicine; Visit Provider Physician Assistant Surgical
DX: Z98.84 Bariatric surgery status (principal)
CPT/HCPCS: 36415; 80053; 80061; 82306; 82607; 82728; 82746; 83036; 83525; 83540; 84425; 84443; 84590; 84630; 85025; 86140

== ENCOUNTER 2024-11-18 10:35 | Outpatient (AMB) | payer OTHER, SELFPAY ==
--- NOTE | 2024-11-18 10:31 | A.OFFVIS_ITS ---
VS Expanded 11/18/24 10:39 Height 5 ft 4 in Weight 193 lb BMI 33.1 Intake Visit Reasons: (TV) PO LSG 01/01/24 Client Relations Specialist Required: Yes Client Relations Specialist Name: Mendel [id number] Information Interpreted: clinical only Allergies diclofenac Allergy (Severe, Verified 03/12/24 11:56) Hallucinations duloxetine [From CYMBALTA] Allergy (Severe, Verified 03/12/24 11:56) Hallucinations droperidol [DROPERIDOL] Allergy (Intermediate, Verified 03/12/24 11:56) dizzy Medication List - Last Reconciled 11/18/24 by LEONARDO Redding albuterol sulfate 90 mcg/actuation (Ventolin HFA) 2 puffs inhalation QID PRN amitriptyline 25 mg PO BEDTIME amlodipine 5 mg PO DAILY cholecalciferol (vitamin D3) 50 mcg PO DAILY citalopram 20 mg PO DAILY docusate sodium (Colace) 100 mg PO DAILY fluticasone propionate 110 mcg/actuation (Flovent HFA) 1 puff inhalation BID iron,carbonyl-vitamin C 65 mg iron- 125 mg (Vitron-C) 1 tab PO BEDTIME lisinopril-hydrochlorothiazide 20-12.5 mg 1 tab PO DAILY montelukast 10 mg PO DAILY pantoprazole 40 mg PO DAILY polyethylene glycol 3350 (Miralax) 17 grams PO DAILY sodium chloride 0.65% (Saline Mist) 1 spray intranasal DAILY PRN thiamine HCl (vitamin B1) 100 mg PO DAILY tolterodine ER 2 mg PO DAILY topiramate 50 mg PO BID trospium ER 60 mg PO DAILY vitamin A palmitate 10,000 units PO DAILY zinc gluconate 100 mg PO DAILY 60 days HPI Comments Details: This?is a?59?yo female who is s/p LSG 01/01/2024. Presents for 10 month post op visit. Weight at last visit on 09/03/2024 was 198 pounds with a BMI of 34, weight today is 193 pounds, representing a 5 pound weight loss with a BMI today of 33.1.? No complaints of emesis, abdominal pain or reflux, or constipation. Some nausea when she eats or drinks too fast. Doing much better with hydration. Back on both BP meds. Present meal plan includes: Orgain 2 scoops in 8oz UAM x 2 one meal of solid protein- can tolerate chicken, eggs; no pork -has been having 2 boiled eggs, a dinner as above in small portions, plus two shakes taking MVI, additional vits and iron Exercise routine includes: videos at home when I don't have leg pain 3x/week Pt reports issues of excess skin of abdomen and arms/legs. Notices chafing of arms and legs from where skin rubs against the body during movement. Notes difficulty with movements like walking, bending/squatting as excess skin of the belly gets in the way and limits her mobility, feels very uncomfortable. Having worsening leg pain when she walks due to the heaviness of the excess skin of her thighs. [facility] Medical History LUQ pain FH: gastric cancer Abnormal ECG Pre-op evaluation H. pylori infection Rectal bleeding Family history of gastric carcinoma Arthritis Hx of transfusion of packed red blood cells Anemia Vertigo GERD (gastroesophageal reflux disease) Stress incontinence Pre-diabetes Migraine Elevated cholesterol Hiatal hernia Asthma Fibromyalgia Sleep apnea Depression HTN (hypertension) Surgical History S/P laparoscopic sleeve gastrectomy Hx of colonoscopy History of esophagogastroduodenoscopy (EGD) Hx of hernia repair Hx of hysterectomy Hx of cholecystectomy Family History Mother Hypertension Arthritis Father No problems noted. Son No problems noted. 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) Alcohol intake: never Patient Tobacco Use Status: Never used Tobacco service: No Telehealth Telehealth Telehealth Platform: Telephone Location of provider rendering services: other Location of patient: address on file Patient Identification confirmed using: Name, : Yes Telehealth method: voice only Patient verbally consented to treatment: Yes Patient verbally consented to billing insurance company: Yes Patient informed of any privacy concerns related to visit: Yes Minutes spent on Phone/Video with Pt.: 16 Assessment & Plan Assessment & Plan (1) Obesity: Code(s): E66.9 - Obesity, unspecified Category: Medical (2) S/P laparoscopic sleeve gastrectomy: Code(s): Z98.84 - Bariatric surgery status Category: Surgical Plan Pt aware that for skin removal surgery she will have to have BMI closer to 27. (157lbs) She is happy to be no longer using a walker. Encouraged her to increase exercise as able to increase pace of weight loss.Previous labs reviewed, pt taking iron, vit B1, and vit D, vit A, zinc. RTC 2 months. I spent a total of 30 minutes reviewing/updating records, examining the patient and counseling the patient on weight management as detailed above.
[2024-11-18 10:39] VITALS: BMI 33.1
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
== END 2024-11-18 10:54 | disposition home or self-care (01) ==
LOC: HO.HBS 10:35
PROVIDERS: PCP Internal Medicine; Visit Provider Physician Assistant Surgical
DX: E66.9 Obesity, unspecified (principal); Z98.84 Bariatric surgery status
CPT/HCPCS: 99214; G2211

== ENCOUNTER 2025-01-26 14:01 | Outpatient (AMB) | payer OTHER, SELFPAY ==
--- NOTE | 2025-01-26 13:54 | A.OFFVIS_ITS ---
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 Presents for 1 year post op visit. Weight at last visit on 11/18/2024 was 193 pounds; pt unsure of her weight today, has not weighed herself since last clinic visit.? No complaints of emesis, abdominal pain or reflux, or constipation. Back on both BP meds. Pt taking iron, vit B1, and vit D, vit A, zinc. Having a lot of leg and hand cramps, x 2 weeks worsening. Wants to know if she can take ASA81 again. Was put on this by PCP, stopped prior to surgery. Present meal plan includes: Orgain 2 scoops in 8oz UAM x 2 one meal of solid protein- can tolerate chicken, eggs; no pork -has been having 2 boiled eggs, a dinner as above in small portions, plus two shakes taking MVI, additional vits and iron Exercise routine includes: videos at home when I don't have leg pain 3x/week Pt reports issues of excess skin of abdomen and arms/legs. Notices chafing of arms and legs from where skin rubs against the body during movement. Notes difficulty with movements like walking, bending/squatting as excess skin of the belly gets in the way and limits her mobility, feels very uncomfortable. Having worsening leg pain when she walks due to the heaviness of the excess skin of her thighs. [facility] Medical History LUQ pain FH: gastric cancer Abnormal ECG Pre-op evaluation H. pylori infection Rectal bleeding Family history of gastric carcinoma Arthritis Hx of transfusion of packed red blood cells Anemia Vertigo GERD (gastroesophageal reflux disease) Stress incontinence Pre-diabetes Migraine Elevated cholesterol Hiatal hernia Asthma Fibromyalgia Sleep apnea Depression HTN (hypertension) Surgical History S/P laparoscopic sleeve gastrectomy Hx of colonoscopy History of esophagogastroduodenoscopy (EGD) Hx of hernia repair Hx of hysterectomy Hx of cholecystectomy Family History Mother Hypertension Arthritis Father No problems noted. Son No problems noted. 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) Alcohol intake: never Patient Tobacco Use Status: Never used Tobacco service: No Telehealth Telehealth Telehealth Platform: Telephone Location of provider rendering services: other Location of patient: address on file Patient Identification confirmed using: Name, : Yes Telehealth method: voice only Patient verbally consented to treatment: Yes Patient verbally consented to billing insurance company: Yes Patient informed of any privacy concerns related to visit: Yes Minutes spent on Phone/Video with Pt.: 17 Assessment & Plan Assessment & Plan (1) Obesity: Code(s): E66.9 - Obesity, unspecified Category: Medical (2) S/P laparoscopic sleeve gastrectomy: Code(s): Z98.84 - Bariatric surgery status Category: Surgical Plan Will order CMP, Phos, Mg, vitamin levels to investigate hand/leg cramps. Clotrimazole ointment ordered for rashes of excess skin. Pt aware that target weight is 157lbs. Encouraged her to track weights at home. If PCP or other provider would like her to restart ASA, can take but needs to continue pantoprazole as well. Pt instructed to check with PCP to confirm she should restart. RTC 3 months. Orders: Orders Comprehensive Met. Panel Today Z98.84 - Bariatric surgery status Vitamin A Today Z98.84 - Bariatric surgery status Vitamin B12 and Folate Today Z98.84 - Bariatric surgery status Phosphorus Today Z98.84 - Bariatric surgery status Magnesium Today Z98.84 - Bariatric surgery status Vitamin D 25-OH Total Today Z98.84 - Bariatric surgery status Zinc Today Z98.84 - Bariatric surgery status Vitamin B1 Today Z98.84 - Bariatric surgery status Medications: New clotrimazole 1% 1 appl topical BID 45 grams 3RF
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
--- OUTSIDE RECORDS SUMMARY | 2025-01-26 16:43 | XMS_ITS | Clinical Summary ---
Author Organization [facility] Address [address] [place] [address] Care Team Providers Care Microstrategy Architect Name Role Phone Unavailable Primary Care Provider Unavailabl e Social History Tobacco Use Types Packs/Day Years Used Date Smoking Tobacco: Never Assessed Sex and Gender Information Value Date Recorded Sex Assigned at Not on file Gender Identity Not on file Sexual Orientation Not on file Job Start Date Occupation Industry Not on file Not on file Not on file Plan of Treatment Not on file
--- OUTSIDE RECORDS SUMMARY | 2025-01-26 16:43 | XMS_ITS | Clinical Summary ---
Author Organization [facility] Address [address] [place] [address] Phone Care Team Providers Care Instrument Fitter Name Role Phone Marge Pham MD Primary Care Prov ider Allergies Active Allergy Reactions Criticality Noted Date Comments Diclofenac 03/07/2016 Gi upset,wallis,dizziness Droperidol 03/07/2016 Breathing problems Duloxetine Hcl 03/07/2016 Cymbalta Disorient,confusion Medications albuterol 2.5 mg /3 mL (0.083 %) nebulizer solution TAKE 1 VIAL BY NEBULIZATION EVERY 6 HOURS NEEDED FOR WHEEZING OR SHORTNESS OF BREATH. 024 Active Vitamin C tablet Take 100 mg by mouth daily. Active aspirin 81 mg EC tablet TAKE 1 TABLET BY MOUTH EVERY DAY 023 Active vitamin B complex/folic acid (B COMPLEX 100 ORAL) Take 1 Tablet by mouth daily. Active medical supply, miscellaneous (MISCELLANEOUS MEDICAL SUPPLY MISC) CPAP Historical (HISTORICAL CPAP) Inhale?into the lungs. Active ferrous sulfate 134 mg (27 mg iron) tablet Take by mouth. Ac tive ferrous sulfate 325 mg (65 mg elemental iron) tablet TOME 1 TABLETA POR VIA ORAL TODOS [place] WELCH 024 Active fluticasone HFA (Flovent HFA) 220 mcg/actuation inhaler Inhale 1 Puff into the lungs 2 times daily for 360 days. Active hydrocortisone 1 % topical cream Apply 2 times a day. Active mirabegron (MYRBETRIQ) 50 mg tablet extended release 24 hr 24 hr tablet Take 50 mg by mouth daily. Active sodium chloride (AYR) 0.65 % nasal drops 1 [place] by Nasal route as needed for Congestion. Active sodium chloride 0.9 % injection Inject 1,000 mL into the vein every hour. Active tolterodine LA (DETROL LA) 2 mg 24 hr capsule Take 1 Capsule by mouth daily. Active topiramate (TOPAMAX) 50 mg tablet Take 1 Tablet by mouth 2 times daily. Active trospium 60 mg capsule,extended release 24hr Take 1 Capsule by mouth daily. Please take 1 hour before or 2 hours after breakfast for better medication absorption Active albuterol HFA (Ventolin HFA) 90 mcg/actuation inhaler INHALE 2 PUFFS INTO THE LUNGS 4 TIMES DAILY NEEDED FOR COUGH OR WHEEZING. Active CHOLECALCIFEROL, VITAMIN D3, ORAL Take by mouth. Active montelukast (SINGULAIR) 10 mg tablet TOME REGINA TABLETA TODOS WELCH AL ACOSTARSE 90 tablet 025 Active lisinopril-hydro CHLOROthiazide (PRINZIDE,ZESTOR ETIC) 20-12.5 mg per tablet Take 1 tablet by mouth 1 (one) time each day. 90 tablet 025 Active pantoprazole (PROTONIX) 40 mg EC tablet TOME 1 TABLETA POR VIA ORAL TODOS [place] WEL[place] 90 tablet 1 025 Active amLODIPine (NORVASC) 5 mg tablet TOME 1 TABLETA POR VIA ORAL TODOS [place]EL[place] 90 tablet 1 025 Active cyclobenzaprine (FLEXERIL) 10 mg tablet TAKE 1 TABLET BY MOUTH AT BEDTIME NEEDED FOR MUSCLE SPASMS 30 tablet 025 Active amitriptyline (ELAVIL) 25 mg tablet TAKE 1 TABLET BY MOUTH AT BEDTIME 28 tablet 1 025 Active amLODIPine (NORVASC) 5 mg tablet Take 1 Tablet by mouth daily. 024 2024 Discontinued amitriptyline (ELAVIL) 25 mg tablet TAKE 1 TABLET BY MOUTH AT BEDTIME 28 tablet 1 025 2024 Discontinued cyclobenzaprine (FLEXERIL) 10 mg tablet Take 1 tablet (10 mg total) by mouth at bedtime as needed for muscle spasms. 30 tablet 025 2024 Discontinued Active Problems Problem Noted Date Diagnosed Date Depression 09/04/2024 Epigastric pain 09/04/2024 H. pylori infection 09/04/2024 Gastritis 09/04/2024 Class 2 obesity due to exces s calories without serious comorbidity with body mass index (BMI) of 37.0 to 37.9 in adult 09/04/2024 Mild obstructive sleep apnea 09/04/2024 Overview (09/04/2024): Obstructive sleep apnea mild AHI 5 Morbid obesity with BMI of 50.0-59.9, adult 05/2024 Gastro-esophageal reflux disease without esophag itis 04/08/2024 Atypical chest pain 04/28/2021 Bilateral lower extremity edema 04/28/2021 Mixed hyperlipidemia 04/28/2021 Hiatal hernia 10/31/2020 Degenerative joint disease (DJD) of lumbar spine 05/11/2020 Overview (09/04/2024): S/p xray 04/2020 Urinary incontinence 02/03/2020 Migraine headache 02/02/2019 Overview (09/04/2024): Follows with neurology Primary hypertension 05/09/2018 Venous insufficiency of both lower extremities 0 05/09/2018 Prediabetes 04/13/2016 Intermittent asthma 03/28/2016 Overview (09/04/2024): Last Assessment & Plan: Patient is well controlled with Flovent 220 mcg 1 puff twice a day. She rarely uses the albuterol. We will continue with this regimen as well as with Singulair 10 mg p.o. every night. Pulmonary function test was done today: Vitamin D deficiency 03/28/2016 Fibromyalgia 03/07/2016 YOJANA on CPAP 03/07/2016 Overview (09/04/2024): [facility] split-night polysomnogram 05/28/2012. Weight 283; BMI 49. 17 hypopneas apneas indicating an AHI of 9; REM AHI 44. Average oxygen saturation 97% with oxygen beka 91%. CPAP applied from 5-8. With CPAP at 8 AHI 0.3 and lowest oxygen saturation 95%. CPAP at 8 was recommended. [facility] Home Sleep Apnea Test: Date 11/15/2021; Wt 308#; BMI 53; ZANA (AHI) 5, AI 0.2; HI 5; Unclassified apneas 0; Obstructive apneas 2; Central apneas 0; Mixed apneas 0; hypopneas 45; average oxygen saturation 95% (lowest 87% without saturations <88% for 5% or more of study) - Obstructive Sleep Apnea - mild; mostly hypopneas; without sleep related hypoventilation by 2021 home sleep apnea test. Last Assessment & Plan: Patient experiencing a lot of pain at night and has not been able to use her CPAP. She has an upcoming appointment with her primary care physician to address this issue. Encounters Date Type Department Care Team Description 12/29/2024 9:45 AM EST Office Visit Adult Medicine [address] [phone] Kayla Berg PA Sacral back pain (Primary Dx); Other osteoarthritis of spine, lumbar region; Primary hypertension 12/29/2024 9:36 AM EST - 12/29/2024 11:59 PM EST Hospital Encounter [address] [phone] Sacral back pain Discharge Disposition: Home or Self Care 12/28/2024 Telephone Adult Medicine [address] [phone] Marge Anders MD Advice Only 11/12/2024 Telephone Adult Medicine [address] [phone] Lara Reynoso LPN Fitting for DME (Faxed form from [facility]) 11/10/2024 Telephone Adult Medicine [address] [phone] Lara Reynoso LPN Fitting for DME (Faxed form from [facility]) from Last 3 Months Immunizations Name Administration Dates Next Due Influenza Quadravalent, MDCK , 0.5ml, preservative free (Flucelvax) 6mo and older 10/31/2022,12/07/2021 Influenza trivalent, with pr eservative (Fluzone; Afluria) 6mo and older 08/26/2014,08/11/2012 Pneumococcal polysaccharide 23 valent (Pneumovax 23) 2yo and older 01/04/2017 Tdap Tetanus diptheria acell ular pertussis (Boostrix; Adacel) 7yo and older 01/04/2017,05/24/2014 Surgical History Surgery Date Site/Laterality Comments HYSTERECTOMY 1997 PROCEDURE: HISTORICAL HYSTERECTOMY; COMMENT: still have ovaries CHOLECYSTECTOMY PROCEDURE: HISTORICAL CHOLECYSTECTOMY HERNIA REPAIR 12/04/2016 PROCEDURE: HISTORICAL HERNIA REPAIR/TRISTEN BREAST LUMPECTOMY 1989 Right PROCEDURE: HISTORICAL BREAST LUMPECTOMY; COMMENT: b9 COLONOSCOPY 07/03/2017 PROCEDURE: HISTORICAL COLONOSCOPY; COMMENT: NORMAL CHOLECYSTECTOMY PROCEDURE: AR LAPAROSCOPY SURG CHOLECYSTECTOMY BARIATRIC SURGERY 01/01/2024 PROCEDURE: AR LAPS GSTRC RSTRICTIV PX LONGITUDINAL GASTRECTOMY; COMMENT: [facility] Medical History Medical History Date Comments Depression DX:Depression Morbid obesity (CMS/HCC) 03/07/2016 DX:Morb id obesity (HCC) YOJANA on CPAP 03/07/2016 DX:YOJANA on CPAP Fibromyalgia 03/07/2016 DX:Fibromyalgia Vitamin D deficiency 03/28/2016 DX:Vitamin D deficiency Prediabetes 04/13/2016 DX:Prediabetes Hypertension 05/09/2018 DX:Hypertension Intermittent asthma 03/28/2016 DX:Intermitt ent asthma Venous insufficiency of both lower extremities 05/09/2018 DX:Venous insufficiency of b oth lower extremities Migraine headache 02/02/2019 DX:Migraine he adache; COMMENT: Follows with neurology Esophageal reflux DX:Esophageal reflux Epigastric pain DX:Epigastric pa in Abdominal cramping DX:Abdominal cramping Cervical spondylosis without myelopathy DX:Cervical spondylosis with out myelopathy Hyperlipidemia DX:Hyperlipidemi a Gastritis DX:Gastritis H. pylori infection DX:H. pylori infection History of gastric surgery DX:Hi story of gastric surgery Helicobacter pylori (H. pylo ri) infection DX:Helicobacter pylori (H. p ylori) infection Weight loss DX:Weight loss Dysphagia DX:Dysphagia Family History Medical History Relation Name Comments Breast cancer Aunt 1 maternal uterine cancer ; age>45 Breast cancer Aunt 2 paternal uterine cancer ; age >50 Diabetes Brother x 4 HTN, depression Stomach cancer Father Prostate cancer Maternal Grandfather Hypertension Mother uterine polyps (-6) Breast cancer Mother's side 1 cousin Prostate cancer Mother's side 2 cousin Prostate cancer Paternal Grandfather Breast cancer Paternal Grandmother Other: memory issues Sister x 1 Coronary artery disease Uncle 1 Coronary artery disease Uncle 2 Brain cancer Uncle 3 maternal Relation Name Status Comments Aunt 1 maternal Aunt 2 paternal Brother x 4 Alive Father Maternal Grandfather Maternal Grandmother Mother Alive Mother's side 1 cousin Mother's side 2 cousin Alive Paternal Grandfather Paternal Grandmother Sister x 1 Alive Uncle 1 Alive Uncle 2 Uncle 3 maternal Alive Social History Tobacco Use Types Packs/Day Years Used Date Smoking Tobacco: Never Smokeless Tobacco: Never Tobacco Cessation:Counseling Given: Not Answered Alcohol Use Standard Drinks/Week Comments No 0 (1 standard drink = 0.6 oz pur e alcohol) Comments No Sex and Gender Information Value Date Recorded Sex Assigned at Not on file Legal Sex Female 3:32 PM EST Gender Identity Not on file Sexual Orientation Not on file Obstetrics History Last Filed Vital Signs Vital Sign Reading Time Taken Comments Blood Pressure 148/82 12/29/2024 12:30 PM EST Pulse 64 12/29/2024 9:11 AM EST Temperature 36.8 ??C (98.3 ??F) 12/29/2024 9:11 AM ES T Respiratory Rate - - Oxygen Saturation - - Inhaled Oxygen Concentration - - Weight 88 kg (194 lb) 12/29/2024 9:11 AM EST Height 162.6 cm (5' 4 ) 12/29/2024 9:11 AM EST Body Mass Index 33.3 12/29/2024 9:11 AM EST Plan of Treatment Health Maintenance Due Date Last Done Comments Hepatitis B Vaccines (1 of 3 - 19+ 3-dose series) 1986 Zoster Vaccines (1 of 2) 2017 Pneumococcal Vaccine: 50+ Years (2 of 2 - PCV) 01/04/2018 01/04/2017 Pneumococcal Vaccine: Pediatrics (0 to 5 Years) and At-Risk Patients (6 to 64 Years) (2 of 2 - PCV) 01/04/2018 01/04/2017 Social Influencers of Health Screening 10/06/2022 COVID-19 Vaccine ( season) 2024 10/27/2021, 03/23/2021, 02/23/2021 Influenza Vaccine (#1) 2024 , 12/07/2021, 08/26/2014, Additional history exists Breast Cancer Screening 04/10/2025 04/10/20 23, 04/18/2022, 03/28/2022, Additional history exists Hypertension/CHF/CAD Annual BMP Blood Test 07/02/2025 07/02/2024, 07/02/2024 Depression Screening 08/13/2025 08/13/2024 DTaP,Tdap,and Td Vaccines (3 - Td or Tdap) 01/04/2027 01/04/2017, 05/24/2014 Colorectal Cancer Screening: Colonoscopy 07/03/2027 07/03/2017 Cholesterol Screening (Lipid Panel) 07/02/2029 07/02/2024, 07/02/2024 HIV Screening Completed 10/03/2016 Hepatitis C Screening Completed 10/03/2016 HIB Vaccines Aged Out No longer eligi ble based on patient's age to complete this topic HPV Vaccines Aged Out No longer eligi ble based on patient's age to complete this topic Hepatitis A Vaccines Aged Out No long er eligible based on patient's age to complete this topic IPV Vaccines Aged Out No longer eligi ble based on patient's age to complete this topic MMR Vaccines Aged Out No longer eligi ble based on patient's age to complete this topic Meningococcal ACWY Vaccine Aged Out N o longer eligible based on patient's age to complete this topic Meningococcal B Vacine Aged Out No lo nger eligible based on patient's age to complete this topic RSV Immunization Patients Under 20 months Aged Out No longer eligible based on patient's age to complete this topic Varicella Vaccines Aged Out No longer eligible based on patient's age to complete this topic Procedures Procedure Name Priority Date/Time Associated Diagnosis Comments XR SACRUM COCCYX 2+ VIEWS Routine 12/29/2024 9:50 AM EST Sacral back pain DEPRESSION SCREENING Routine 08/13/2024 ANNUAL BMP BLOOD TEST Routine 07/02/2024 LIPID PANEL Routine 07/02/2024 SCREENING MAMMOGRAPHY BI 2-VIEW BREAST INC CAD Routine 04/10/2023 9:49 AM EDT Encounter for screening mammogram for malignant neoplasm of breast COLONOSCOPY Routine 07/03/2017 HEPATITIS C SCREENING Routine 10/03/2016 HIV SCREENING Routine 10/03/2016 from Last 3 Months or Most Recently Relevant to Health Maintenance Results * XR Sacrum Coccyx 2+ Views (12/29/2024 9:50 AM EST) Anatomical Region Laterality Modality Body, Spine, Pelvis Radiographic Imaging 12/29/2024 10:3 0 AM EST Narrative 12/29/2024 10:33 AM EST Sacrum and coccyx, 3 views. History pain. Coccyx is obscured on the frontal view due to overlying intestinal contents. There is no visible fractures, dislocations or destructive lesions. CONCLUSIONS: Somewhat limited examination. No evidence of fractures or dislocations. -------- FINAL REPORT -------- Dictated By: Angela Gallegos Dictated Date: 12/29/2024 10:30 ET Assigned Physician: Angela Gallegos Reviewed and Electronically Signed By: Angela Gallegos Signed Date: 12/29/2024 10:33 ET Workstation ID: [id number] Transcribed By: Self Edit Transcribed Date: 12/29/2024 10:30 ET Procedure Note Angela Gallegos MD - 12/29/2024 Sacrum and coccyx, 3 views. History pain. Coccyx is obscured on the frontal view due to overlying intestinalcontents. There is no visible fractures, dislocations or destructivelesions. CONCLUSIONS: Somewhat limited examination. No evidence of fractures ordislocations. -------- FINAL REPORT -------- Dictated By: Angela Gallegos Dictated Date: 12/29/2024 10:30 ET Assigned Physician: Angela Gallegos Reviewed and Electronically Signed By: Angela Gallegos Signed Date: 12/29/2024 10:33 ET Workstation ID: [id number] Transcribed By: Self Edit Transcribed Date: 12/29/2024 10:30 ET Result [facility] Kayla PATTERSON IMG XR PROCEDURES Final Result * Depression Screening (08/13/2024) Pathologist [facility] Depression Screening Abstracted [facility] Provider HEALTH MAINTENANCE Final Result * Annual BMP Blood Test (07/02/2024) [facility] Annual BMP Blood Test Abstracted Result [facility] Provider HEALTH MAINTENANCE Final Result * Lipid panel (07/02/2024) [facility] LDL/HDL Ratio 2 0 - 4 Triglycerides 105 0 - 150 mg/dL Cholesterol 131 0 - 200 mg/dL HDL 79 >=40 mg/dL LDL Cholesterol 31 0 - 100 mg/dL Blood Venous blood specimen / Unknown Result [facility] Provider MD LAB BLOOD ORDERABLES Jeaneth l Result * SCREENING MAMMOGRAPHY BI 2-VIEW BREAST INC CAD (04/10/2023 9:49 AM EDT) Anatomical Region Laterality Modality Radiographic Daphnie ging 09/26/2022 1:03 PM EST Narrative 04/10/2023 3:33 PM EDT This is a summary report. The complete report is available in the patient's medical record. If you cannot access the medical record, please contact the sending organization for a detailed fax or copy. Exam: Screening mammogram Findings: Digital bilateral full-field screening mammography is performed with tomosynthesis and interpreted with the aid of computer-aided detection. ??Comparison is made with 03/28/2022 and as far back as 03/27/2017. Breast parenchyma is composed of scattered fibroglandular densities. ??Stable bilateral nodularity. No new suspicious mass, architectural distortion, or suspicious calcifications. Impression: No mammographic evidence of malignancy. BI-RADS 2-benign Procedure Note Ana Maria Lopez MD - 12/03/2023 This is a summary report. The complete report is available in thepatient's medical record. If you cannot access the medical record, pleasecontact the sending organization for a detailed fax or copy. Exam: Screening mammogram Findings: Digital bilateral full-field screening mammography is performedwith tomosynthesis and interpreted with the aid of computer-aideddetection. Comparison is made with 03/28/2022 and as far back as03/27/2017. Breast parenchyma is composed of scattered fibroglandular densities.Stable bilateral nodularity. No new suspicious mass, architecturaldistortion, or suspicious calcifications. Impression: No mammographic evidence of malignancy. BI-RADS 2-benign Result [facility] Alannah Ibarra CNM IMG XR PROCEDURES Final Result * Colonoscopy (07/03/2017) [facility] Colonoscopy No Interpretation , Abstracted Anatomical Region Laterality Modality Other Result [facility] Provider HEALTH MAINTENANCE Final Result * HIV Screening (10/03/2016) [facility] HIV Screening Abstracted [facility] Provider HEALTH MAINTENANCE Final Result * Hepatitis C Screening (10/03/2016) [facility] Hepatitis C Screening Abstracted Result [facility] Provider HEALTH MAINTENANCE Final Result from Last 3 Months or Most Recently Relevant to Health Maintenance Insurance [facility] [place] [address] Advance Directives Documents on File Type Date Recorded Patient Deaf Interpreter Expl anation Health Care Decision (hx) 01/18/2021 AD MONROY DIRECTIVE Health Care Decision (hx) 01/18/2021 AD MONROY DIRECTIVE Health Care Decision (hx) 01/18/2021 AD MONROY DIRECTIVE Health Care Decision (hx) 01/18/2021 AD MONROY DIRECTIVE Health Care Decision (hx) 01/18/2021 AD MONROY DIRECTIVE Health Care Decision (hx) 01/18/2021 AD MONROY DIRECTIVE Health Care Decision (hx) 01/18/2021 AD MONROY DIRECTIVE Health Care Decision (hx) 01/18/2021 AD MONROY DIRECTIVE Health Care Decision (hx) 01/17/2021 AD MONROY DIRECTIVE Health Care Decision (hx) 01/17/2021 AD MONROY DIRECTIVE Health Care Decision (hx) 01/17/2021 AD MONROY DIRECTIVE Health Care Decision (hx) 01/17/2021 AD MONROY DIRECTIVE Health Care Decision (hx) 01/17/2021 AD MONROY DIRECTIVE Health Care Decision (hx) 01/17/2021 AD MONROY DIRECTIVE Health Care Decision (hx) 01/17/2021 AD MONROY DIRECTIVE Health Care Decision (hx) 01/17/2021 AD MONROY DIRECTIVE Care Teams Instrument Fitter Relationship Specialty Start Date End Date Marge Pham MD [address] [place] [id number] PCP - General Internal Medicine 05/28/22
== END 2025-01-26 14:23 | disposition home or self-care (01) ==
LOC: HO.HBS 14:01
PROVIDERS: PCP Internal Medicine; Visit Provider Physician Assistant Surgical
DX: E66.811 Obesity, class 1 (principal); Z68.33 Body mass index [BMI] 33.0-33.9, adult; Z90.3 Acquired absence of stomach [part of]; Z98.84 Bariatric surgery status
CPT/HCPCS: 99214; G2211

== ENCOUNTER → 2025-01-26 14:01 | Outpatient (BNVA) | payer OTHER, SELFPAY | PROVIDERS: PCP Internal Medicine; Visit Provider Physician Assistant Surgical ==

== ENCOUNTER 2025-04-27 10:54 | Outpatient (AMB) | payer OTHER, SELFPAY ==
--- NOTE | 2025-04-27 10:56 | A.OFFVIS_ITS ---
VS Expanded 04/27/25 11:02 BP 157/80 H Blood Pressure Location Lt brachial Blood Pressure Position Sitting Pulse 63 Temp 97.1 F Height 5 ft 4 in Weight 194 lb 3.2 oz BMI 33.3 Body Fat % 31.7 Body Fat Mass 6.6 Fat Free Mass 132.4 Visceral Fat Rating 9.0 Body Water % 48.5 Body Water Mass 94.2 Muscle Mass/Score 125.8 Basal Metabolic Rate/Score 1,770 Intake Visit Reasons: OV PO LSG 01/01/24 Intake Note: She states that she has not gotten her multi vitamin and she had to order over Ardian. Child Abuse Worker Required: Yes Child Abuse Worker Name: Pio Arellano- [id number] Allergies diclofenac Allergy (Severe, Verified 04/27/25 10:58) Hallucinations duloxetine (From CYMBALTA) Allergy (Severe, Verified 04/27/25 10:58) Hallucinations droperidol (DROPERIDOL) Allergy (Intermediate, Verified 04/27/25 10:58) dizzy Medication List - Last Reconciled 04/27/25 by LEONARDO Redding albuterol sulfate 90 mcg/actuation (Ventolin HFA) 2 puffs inhalation QID PRN amitriptyline 25 mg PO BEDTIME amlodipine 5 mg PO DAILY Held on 01/02/24. Instructions: Resume on 01/03/24. Check your blood pressure every morning as soon as you wake up and send it to Dr. Aden. Do no take the blood pressure medication if the blood pressure is below 120/70. Wait every day to hear back from Dr. Aden before you take the medication. cholecalciferol (vitamin D3) 50 mcg PO DAILY citalopram 20 mg PO DAILY clotrimazole 1% 1 appl topical BID cyclobenzaprine 10 mg PO BEDTIME docusate sodium 100 mg PO DAILY fluticasone propionate 110 mcg/actuation (Flovent HFA) 1 puff inhalation BID iron,carbonyl-vitamin C 65 mg iron- 125 mg (Vitron-C) 1 tab PO BEDTIME lisinopril-hydrochlorothiazide 20-12.5 mg 1 tab PO DAILY Held on 01/02/24. Instructions: Resume on 01/03/24. Check your blood pressure every morning as soon as you wake up and send it to Dr. Aden. Do no take the blood pressure medication if the blood pressure is below 120/70. Wait every day to hear back from Dr. Aden before you take the medication. montelukast 10 mg PO DAILY pantoprazole 40 mg PO DAILY polyethylene glycol 3350 (Miralax) 17 grams PO DAILY sodium chloride 0.65% (Saline Mist) 1 spray intranasal DAILY PRN thiamine HCl (vitamin B1) 100 mg PO DAILY tolterodine ER 2 mg PO DAILY topiramate 50 mg PO BID trospium ER 60 mg PO DAILY zinc gluconate 100 mg PO DAILY 60 days HPI Comments Details: This?is a?60?yo F who is s/p LSG 01/01/2024. Presents for 16mo post op visit. Weight stable since last OV. Had one episode of right sided abdominal pain- passed on its own, no N/V or blood in stool. She reports she went to PCP for urinary frequency; was tested for UTI, negative; was diagnosed with urinary incontinence. Pt reports she was told the excess weight is contributing to the incontinence. Never got labs done for hand/leg cramping. Present meal plan includes: Orgain 2 scoops in 8oz UAM x 2 one meal of solid protein- can tolerate chicken, eggs; no pork -has been having 2 boiled eggs, a dinner as above in small portions, plus two shakes taking MVI, additional vits and iron Pt reports she changed her plan due to some nausea. She is taking 1 protein shake per day- [employer] (1 scoop = 30g). 2 eggs in AM, and there is disagreement on what she eats the rest of the day- her HEAD PAPER TESTER states she eats rice. Pt claims small portions . I have it one time per week . Doesn't have much appetite so will only snack , not eat much. Exercise routine includes: videos at home when I don't have leg pain 3x/week Pt reports issues of excess skin of abdomen and arms/legs. Notices chafing of arms and legs from where skin rubs against the body during movement. Notes difficulty with movements like walking, bending/squatting as excess skin of the belly gets in the way and limits her mobility, feels very uncomfortable. Having worsening leg pain when she walks due to the heaviness of the excess skin of her thighs. [facility] Medical History LUQ pain FH: gastric cancer Abnormal ECG Pre-op evaluation H. pylori infection Rectal bleeding Family history of gastric carcinoma Arthritis Hx of transfusion of packed red blood cells Anemia Vertigo GERD (gastroesophageal reflux disease) Stress incontinence Pre-diabetes Migraine Elevated cholesterol Hiatal hernia Asthma Fibromyalgia Sleep apnea Depression HTN (hypertension) Surgical History S/P laparoscopic sleeve gastrectomy Hx of colonoscopy History of esophagogastroduodenoscopy (EGD) Hx of hernia repair Hx of hysterectomy Hx of cholecystectomy Family History Mother Hypertension Arthritis Father No problems noted. Son No problems noted. Social History Household Members: None Housing: House Are you a primary caregiver assisted living to a significant other at home: No Do you presently have visiting nurse or other home services: Yes (HEAD PAPER TESTER) Alcohol intake: never Patient Tobacco Use Status: Never used Tobacco service: No Physical Exam Vital Signs: Last Vital Signs Temp 97.1 F 04/27/25 11:02 Pulse 63 04/27/25 11:02 BP 157/80 H 04/27/25 11:02 BMI result Body Mass Index 33.3 Assessment & Plan Assessment & Plan (1) S/P laparoscopic sleeve gastrectomy: Code(s): Z98.84 - Bariatric surgery status Category: Surgical (2) Obesity: Code(s): E66.9 - Obesity, unspecified Category: Medical Plan Pt likely too low in total protein intake. Gave new plan of 2 shakes per day (1 scoop each, 30g each) plus one meal 6f/6f and can have 1-2 forks rice 1x/week. Clotrimazole ointment ordered for rashes of excess skin. Pt aware that target weight is 157lbs. Pt will go for bloodwork today to work up cramping. Pt requests victoria MVI sent to pharmacy. RTC 3mo. Medications: New evmgsoepxhox-yoc-xaoi-FA-vit K 45 mg iron- 800 mcg-120 mcg (Bariatric Multivitamins) 1 cap PO .daily in evening 90 caps 3RF [Vitamin A] 1 cap PO DAILY 90 caps 3RF Refilled iron,carbonyl-vitamin C 65 mg iron- 125 mg (Vitron-C) 1 tab PO BEDTIME 90 tabs 3RF cholecalciferol (vitamin D3) 50 mcg PO DAILY 90 caps 3RF
[2025-04-27 11:02] VITALS: BP 157/80; PULSE 63; TEMP 36.2; BMI 33.3
--- OUTSIDE RECORDS SUMMARY | 2025-04-27 12:06 | XMS_ITS | Clinical Summary ---
Author Organization [facility] Address [address] [place] [address] Phone Care Team Providers Care [employer] Operator Name Role Phone Marge Pham MD Primary Care Prov ider Allergies Active Allergy Reactions Criticality Noted Date Comments Diclofenac 03/07/2016 Gi upset,wallis,dizziness Droperidol 03/07/2016 Breathing problems Duloxetine Hcl 03/07/2016 Cymbalta Disorient,confusion Medications albuterol 2.5 mg /3 mL (0.083 %) nebulizer solution TAKE 1 VIAL BY NEBULIZATION EVERY 6 HOURS NEEDED FOR WHEEZING OR SHORTNESS OF BREATH. 03/16/20 24 Active Vitamin C tablet Take 100 mg by mouth daily. Active aspirin 81 mg EC tablet TAKE 1 TABLET BY MOUTH EVERY DAY 01/01/20 23 Active vitamin B complex/folic acid (B COMPLEX 100 ORAL) Take 1 Tablet by mouth daily. Active medical supply, miscellaneous (MISCELLANEOUS MEDICAL SUPPLY MISC) CPAP Historical (HISTORICAL CPAP) Inhale into the lungs. Active ferrous sulfate 325 mg (65 mg elemental iron) tablet TOME 1 TABLETA POR VIA ORAL TODOS [place] 08/13/20 24 Active fluticasone HFA (Flovent HFA) 220 mcg/actuation inhaler Inhale 1 Puff into the lungs 2 times daily for 360 days. 12/07/19 22 Active hydrocortisone 1 % topical cream Apply 2 times a day. 10/31/19 24 Active mirabegron (MYRBETRIQ) 50 mg tablet extended release 24 hr 24 hr tablet Take 50 mg by mouth daily. 08/06/20 22 Active sodium chloride (AYR) 0.65 % nasal drops 1 [place] by Nasal route as needed for Congestion. 03/13/20 23 Active sodium chloride 0.9 % injection Inject 1,000 mL into the vein every hour. 01/16/20 24 Active tolterodine LA (DETROL LA) 2 mg 24 hr capsule Take 1 Capsule by mouth daily. 01/16/20 22 Active topiramate (TOPAMAX) 50 mg tablet Take 1 Tablet by mouth 2 times daily. 01/16/20 22 Active trospium 60 mg capsule,extended release 24hr Take 1 Capsule by mouth daily. Please take 1 hour before or 2 hours after breakfast for better medication absorption 08/10/20 Active albuterol HFA (Ventolin HFA) 90 mcg/actuation inhaler INHALE 2 PUFFS INTO THE LUNGS 4 TIMES DAILY NEEDED FOR COUGH OR WHEEZING. 03/29/20 23 Active CHOLECALCIFEROL, VITAMIN D3, ORAL Take by mouth. Active pantoprazole (PROTONIX) 40 mg EC tablet TOME 1 TABLETA POR VIA ORAL TODOS [place] 90 tablet 1 12/17/19 25 Active amLODIPine (NORVASC) 5 mg tablet TOME 1 TABLETA POR VIA ORAL TODOS [place] 90 tablet 1 01/05/20 25 Active lisinopril-hydroC HLOROthiazide (PRINZIDE,ZESTORE TIC) 20-12.5 mg per tablet TAKE 1 TABLET BY MOUTH 1 TIME EACH DAY. 90 tablet 02/23/20 25 Active montelukast (SINGULAIR) 10 mg tablet Take 1 tablet (10 mg total) by mouth at bedtime. 90 tablet 02/23/20 25 Active amitriptyline (ELAVIL) 25 mg tablet TAKE 1 TABLET BY MOUTH AT BEDTIME 28 tablet 1 03/15/20 25 Active cyclobenzaprine (FLEXERIL) 10 mg tablet TAKE 1 TABLET BY MOUTH AT BEDTIME NEEDED FOR MUSCLE SPASMS 30 tablet 04/13/20 25 Active ferrous sulfate 134 mg (27 mg iron) tablet Take by mouth. 025 Discontin ued(Thera py completed ) cyclobenzaprine (FLEXERIL) 10 mg tablet TAKE 1 TABLET BY MOUTH AT BEDTIME NEEDED FOR MUSCLE SPASMS 30 tablet 03/15/20 25 025 Discontin ued(Reord er) Hospital, Clinic, or Other Facility Administered Medication Ordered Dose Route Frequency Start Date End Date Status lidocaine (XYLOCAINE) 1 % injection 4 mLIndications:Primary osteoarthritis of left knee 4 mL inj Once PRN Procedure 03/31/2025 03/31/2025 Ended methylPREDNISolone acetate (DEPO-Medrol) injection 80 mgIndications:Primary osteoarthritis of left knee 80 mg IAtc Once PRN Procedure 03/31/2025 03/31/2025 Ended Active Problems Problem Noted Date Diagnosed Date Status post abdominal supracervical subtotal hys terectomy 03/29/2025 Depression 09/04/2024 Epigastric pain 09/04/2024 H. pylori infection 09/04/2024 Gastritis 09/04/2024 Class 1 obesity due to exces s calories without serious comorbidity with body mass index (BMI) of 33.0 to 33.9 in adult 09/04/2024 Mild obstructive sleep apnea 09/04/2024 Overview (09/04/2024): Obstructive sleep apnea mild AHI 5 Gastro-esophageal reflux disease without esophag itis 04/08/2024 S/P gastric sleeve procedure 01/16/2024 Atypical chest pain 04/28/2021 Bilateral lower extremity edema 04/28/2021 Mixed hyperlipidemia 04/28/2021 Hiatal hernia 10/31/2020 History of COVID-19 10/27/2020 Degenerative joint disease (DJD) of lumbar spine [...] 03/07/2016 YOJANA on CPAP 03/07/2016 Overview (09/04/2024): [facility] split-night polysomnogram 05/28/2012. Weight 283; BMI 49. 17 hypopneas apneas indicating an AHI of 9; REM AHI 44. Average oxygen saturation 97% with oxygen beka 91%. CPAP applied from 5-8. With CPAP at 8 AHI 0.3 and lowest oxygen saturation 95%. CPAP at 8 was recommended. [facility] Home Sleep Apnea Test: Date [...] primary care physician to address this issue. Resolved Problems Problem Noted Date Diagnosed Date Resolved Date Morbid obesity with BMI of 5 0.0-59.9, adult (CMS/[facility] V24, [facility] V28) 09/04/2024 03/29/2025 Encounters Date Type Department Care Team Description 03/31/2025 8:59 AM EDT - 03/31/2025 11:59 PM EDT Hospital Encounter XRAY - [facility] [address] [place] [address] Discharge Disposition: Home or Self Care 03/31/2025 8:45 AM EDT Office Visit Orthopedics - [place] [phone] Mj Carter PA Primary osteoarthritis of left knee (Primary Dx) 03/30/2025 8:00 AM EDT Office Visit [address] [phone] Marge Chen MD Generalized abdominal pain (Primary Dx); Colon wall thickening; Chronic pain of left knee 03/29/2025 2:00 PM EDT - 03/29/2025 11:59 PM EDT Hospital Encounter Radiology Department - [address] [phone] Dizziness Discharge Disposition: Home or Self Care 03/29/2025 10:30 AM EDT Office Visit [address] [phone] Giselle Caceres PA Dizziness (Primary Dx); Primary hypertension; Mixed hyperlipidemia; Prediabetes; YOJANA on CPAP; S/P gastric sleeve procedure; Class 1 obesity due to excess calories without serious comorbidity with body mass index (BMI) of 33.0 to 33.9 in adult 03/16/2025 Telephone Adult [address] [phone] Marge Chen MD Forms/questionnaires (Eversouce) from Last 3 Months Immunizations Name Administration [...] PROCEDURE: HISTORICAL COLONOSCOPY; COMMENT: NORMAL CHOLECYSTECTOMY PROCEDURE: ID LAPAROSCOPY SURG CHOLECYSTECTOMY BARIATRIC SURGERY 01/01/2024 PROCEDURE: ID LAPS GSTRC RSTRICTIV PX LONGITUDINAL GASTRECTOMY; COMMENT: [facility] Medical History Medical History Date Comments Depression DX:Depression Morbid obesity (CMS/HCC V24, CMS/HCC V28) 03/07/2016 DX:Morbid obesity (HCC) YOJANA on CPAP 03/07/2016 DX:YOJANA [...] drink = 0.6 oz pur e alcohol) Housing Instability Answer Date Recorde d Are you worried that in the next 2 months you may not have stable housing? No 03/29/2025 Food Access & Nutrition Answer Date Rec orded Do you have access to a vari ety of food including fruits and vegetables? Yes 03/29/2025 Health Literacy Answer Date Recorded How often do you need to hav e someone help you when you read instructions, pamphlets, or other written material from your doctor or pharmacy? Never 03/29/2025 Caregiver: How often do you need to have someone help you when you read instructions, pamphlets, or other written material from your doctor or pharmacy? Not on file 03/29/2025 Financial Risk Answer Date Recorded How hard is it for you to pa y for the very basics like food, housing, medical care, and air conditioning / heating? Not very hard 03/29/2025 Transportation Answer Date Recorded Has the lack of transportati on kept you from meetings, work, or from getting things needed for daily living? No Has the lack of transportati on kept you from medical appointments or from getting medications? No 03/29/2025 Social Isolation Answer Date Recorded How often do you feel lonely or isolated from th ose around you? Never 03/29/2025 Food Risk Answer Date Recorded Within the past 12 months we worried whether our food would run out before we got money to buy more. Never true 03/29/2025 Within the past 12 months th e food we bought just didn't last and we didn't have money to get more. Never true 03/29/2025 Dependent Care Answer Date Recorded Do you need help finding or paying for care for your loved ones. For example, children's tutor or elderly care for an older adult? No 03/29/2025 Education Answer Date Recorded Do you think completing more education or training, like finishing a GED, going to college, or learning a trade, would be helpful for you? N/A 03/29/2025 Employment and Income Answer Date Recor ded During the last four weeks, have you been actively looking for work? No 03/29/2025 Living Situation Answer Date Recorded What is your living situation? 0 03/29/2025 Comments No Sex and Gender Information Value Date Recorded Sex Assigned at Not on file Legal Sex Female 3:32 PM EST Gender Identity Not on file Sexual Orientation Not on file Obstetrics History Last Filed Vital Signs Vital Sign Reading Time Taken Comments Blood Pressure 120/72 03/31/2025 8:47 AM EDT Pulse 64 03/31/2025 8:47 AM EDT Temperature 37.2 C (98.9 F) 03/30/2025 8:34 AM EDT Respiratory Rate 14 03/31/2025 8:47 AM EDT Oxygen Saturation 97% 03/29/2025 10:35 AM EDT Inhaled Oxygen Concentration - - Weight 87.2 kg (192 lb 3.9 oz) 03/31/2025 8:47 A M EDT Height 162.6 cm (5' 4 ) 03/30/2025 8:34 AM EDT Body Mass Index 33 03/30/2025 8:34 AM EDT Plan of Treatment Upcoming Encounters Date Type Department Care Team (Late st Contact Info) Description 06/03/2025 11:00 AM EDT Office Visit Gastroenterology [place] [address] [place] [address] mEy Centeno, NATALIE [address] [facility] [address] [place] [address] Health Maintenance Due Date Last Done Comments Hepatitis B Vaccines (1 of 3 - 19+ 3-dose series) 1986 Zoster Vaccines (1 of 2) 2017 Pneumococcal Vaccine: 50+ Years (2 of 2 - PCV) 01/04/2018 01/04/2017 Breast Cancer Screening 04/10/2025 04/10/20 23, 04/18/2022, 03/28/2022, Additional history exists Influenza Vaccine (#1) 2025 , 12/07/2021, 08/26/2014, Additional history exists Depression Screening 08/13/2025 08/13/2024 Hypertension/CHF/CAD Annual BMP Blood Test 03/29/2026 03/29/2025, 07/02/2024, 07/02/2024 Social Influencers of Health Screening 03/29/2026 03/29/2025 DTaP,Tdap,and Td Vaccines (3 - Td or Tdap) 01/04/2027 01/04/2017, 05/24/2014 Colorectal Cancer Screening: Colonoscopy 07/03/2027 07/03/2017 Cholesterol Screening (Lipid Panel) 07/02/2029 07/02/2024, 07/02/2024 HIV Screening Completed 10/03/2016 Hepatitis C Screening Completed 10/03/2016 Pneumococcal Vaccine: Pediatrics (0 to 5 Years) and At-Risk Patients (6 to 64 Years) Discontinued 01/04/2017 COVID-19 Vaccine Discontinued 10/27/2021, , 02/23/2021 HIB Vaccines Aged Out No longer eligi [...] age to complete this topic Meningococcal B Vaccine Aged Out No l onger eligible based on patient's age to complete this topic RSV Immunization Patients Under 20 months Aged Out No longer eligible based on patient's age to complete this topic Varicella Vaccines Aged Out No longer eligible based on patient's age to complete this topic Procedures Procedure Name Priority Date/Time Associated Diagnosis Comments XR KNEE 4+ VIEWS LEFT Routine 03/31/2025 9:11 AM EDT Primary osteoarthritis of left knee ID ARTHROCENTESIS/ASPIRA TION/INJECTION MAJOR JOINT/BURSA W/O U/S GUIDANCE Routine 03/31/2025 8:45 AM EDT Primary osteoarthritis of left knee VAS US DUPLEX CAROTID BILATERAL Routine 03/29/2025 2:40 PM EDT Dizziness CBC WITH AUTO DIFFERENTIAL Routine 03/29/2025 11:39 AM EDT Dizziness CBC AND DIFFERENTIAL Routine 03/29/2025 11:39 AM EDT Dizziness FERRITIN Routine 03/29/2025 11:39 AM EDT Dizziness FOLATE Routine 03/29/2025 11:39 AM EDT Dizziness IRON AND TIBC Routine 03/29/2025 11:39 AM EDT Dizziness VITAMIN B12 Routine 03/29/2025 11:39 AM EDT S/P gastric sleeve procedure COMPREHENSIVE METABOLIC PANEL Routine 03/29/2025 11:39 AM EDT Prediabetes HEMOGLOBIN A1C Routine 03/29/2025 11:39 AM EDT Prediabetes DEPRESSION SCREENING Routine 08/13/2024 LIPID PANEL Routine 07/02/2024 SCREENING MAMMOGRAPHY BI 2-VIEW BREAST INC CAD Routine 04/10/2023 9:49 AM EDT Encounter for screening mammogram for malignant neoplasm of breast COLONOSCOPY Routine 07/03/2017 HEPATITIS C SCREENING Routine 10/03/2016 HIV SCREENING Routine 10/03/2016 from Last 3 Months or Most Recently Relevant to Health Maintenance Results * XR Knee 4+ Views Left (03/31/2025 9:11 AM EDT) Anatomical Region Laterality Modality Lower Extremities, Knee Left Radiogra [facility] 03/31/2025 10:0 0 AM EDT Narrative 03/31/2025 10:00 AM EDT Left knee, 4 views. History osteoarthritis. No prior studies are available for comparison. There is significant narrowing of the joint space in the medial compartment. There is subchondral sclerosis and marginal osteophytes. There are also degenerative changes in the patellofemoral compartment. There is no fractures, dislocations or joint effusion. CONCLUSIONS: Degenerative changes in the medial and patellofemoral compartments. -------- FINAL REPORT -------- Dictated By: Angela Gallegos Dictated Date: 03/31/2025 10:00 ET Assigned Physician: Angela Gallegos Reviewed and Electronically Signed By: Angela Gallegos Signed Date: 03/31/2025 10:00 ET Workstation ID: [id number] Transcribed By: Self Edit Transcribed Date: 03/31/2025 10:00 ET Procedure Note Angela Gallegos MD - 03/31/2025 Left knee, 4 views. History osteoarthritis. No prior studies are available for comparison. There is significant narrowing of the joint space in the medialcompartment. There is subchondral sclerosis and marginal osteophytes.There are also degenerative changes in the patellofemoral compartment.There is no fractures, dislocations or joint effusion. CONCLUSIONS: Degenerative changes in the medial and patellofemoralcompartments. -------- FINAL REPORT -------- Dictated By: Angela Gallegos Dictated Date: 03/31/2025 10:00 ET Assigned Physician: Angela Gallegos Reviewed and Electronically Signed By: Angela Gallegos Signed Date: 03/31/2025 10:00 ET Workstation ID: [id number] Transcribed By: Self Edit Transcribed Date: 03/31/2025 10:00 ET us Mj PATTERSON IMG XR PROCEDURES Final Result * ID ARTHROCENTESIS/ASPIRATION/INJECTION MAJOR JOINT/BURSA W/O U/S GUIDANCE (03/31/2025 8:45 AM EDT) Narrative Mj Carter PA - 03/31/2025 8:45 AM EDT LEONARDO Salvador 03/31/2025 9:00 AM L Inj/Asp: L knee Indications: pain Details: 22 G needle, anterolateral approach Medications: 4 mL lidocaine 1 %; 80 mg methylPREDNISolone acetate 80 mg/mL Informed Consent: Site: Knee Laterality: Left Relevant images/test results available and reviewed: yes Health status cleared: Yes Procedure/treatment, purpose, treatment alternatives, risks/potential complications and benefits explained: yes Risk/complications/benefits details: Risks include but are not limited to: The treatment may not accomplish the desired results. Additionally bleeding, infection, damage to tendon, nerve, cartilage, muscle; thinning or lightening of the skin in the area of injection; flushing or redness of the face, elevated blood pressure or blood sugar, allergic reaction, rash, increased pain Benefits include relief of inflammation and pain Patient questions answered: yes Patient agrees, verbalizes understanding, and wants to proceed: yes Consent given by: Patient Informed consent discussion completed by Physician/DARCIE with patient: Verbal Pre-procedure timeout performed: yes us Mj PATTERSON IN CLINIC/BEDSIDE ORDERABLES Fin al Result * Vascular US duplex carotid bilateral (03/29/2025 2:40 PM EDT) Anatomical Region Laterality Modality Vascular, Abdomen Ultrasound 03/29/2025 3:58 PM EDT Impressions 03/29/2025 4:02 PM EDT RIGHT: No evidence of internal carotid artery stenosis bilaterally. LEFT: No evidence of internal carotid artery stenosis bilaterally. Reporting standards based on the Society of Radiologists in Ultrasound Consensus Conference Statement. Analysis of internal carotid stenosis is based on duplex Doppler velocity parameters that correlate with the calculation of internal carotid artery stenosis according to the NASCET criteria. -------- FINAL REPORT -------- Dictated By: Rohit Price Dictated Date: 03/29/2025 15:58 ET Assigned Physician: Rohit Price Reviewed and Electronically Signed By: Rohit Price Signed Date: 03/29/2025 16:02 ET Workstation ID: [id number] Transcribed By: Self Edit Transcribed Date: 03/29/2025 15:58 ET Narrative 03/29/2025 4:02 PM EDT EXAM: Duplex carotid ultrasound HISTORY: Dizziness COMPARISON:None TECHNIQUE: Grayscale, color, and pulse wave Doppler images were obtained. FINDINGS: RIGHT: Velocities (in cm/sec) are as follows: Proximal common carotid-122 Mid common carotid-122 Distal common carotid-96.8 Proximal internal carotid-100 Mid internal carotid-82.1 Distal internal carotid-75.7 External carotid-96.2 ICA/CCA peak systolic velocity ratio - 1.03 LEFT: Velocities (in cm/sec) are as follows: Proximal common carotid-122 Mid common carotid-110 Distal common carotid-93.6 Proximal internal carotid-90.2 Mid internal carotid-85.9 Distal internal carotid-114 External carotid-127 ICA/CCA peak systolic velocity ratio - 1.22 Vertebral arteries demonstrate antegrade flow. Procedure Note Rohit Price MD - 03/29/2025 EXAM: Duplex carotid ultrasound HISTORY: Dizziness COMPARISON:None TECHNIQUE: Grayscale, color, and pulse wave Doppler images were obtained. FINDINGS: RIGHT: Velocities (in cm/sec) are as follows: Proximal common carotid-122 Mid common carotid-122 Distal common carotid-96.8 Proximal internal carotid-100 Mid internal carotid-82.1 Distal internal carotid-75.7 External carotid-96.2 ICA/CCA peak systolic velocity ratio - 1.03 LEFT: Velocities (in cm/sec) are as follows: Proximal common carotid-122 Mid common carotid-110 Distal common carotid-93.6 Proximal internal carotid-90.2 Mid internal carotid-85.9 Distal internal carotid-114 External carotid-127 ICA/CCA peak systolic velocity ratio - 1.22 Vertebral arteries demonstrate antegrade flow. IMPRESSION: RIGHT: No evidence of internal carotid artery stenosis bilaterally. LEFT: No evidence of internal carotid artery stenosis bilaterally. Reporting standards based on the Society of Radiologists in UltrasoundConsensus Conference Statement. Analysis of internal carotid stenosis isbased on duplex Doppler velocity parameters that correlate with thecalculation of internal carotid artery stenosis according to the NASCETcriteria. -------- FINAL REPORT -------- Dictated By: Rohit Price Dictated Date: 03/29/2025 15:58 ET Assigned Physician: Rohit Price Reviewed and Electronically Signed By: Rohit Price Signed Date: 03/29/2025 16:02 ET Workstation ID: [id number] Transcribed By: Self Edit Transcribed Date: 03/29/2025 15:58 ET us Giselle PATTERSON CV VASCULAR PROCEDURES Final Re sult * (ABNORMAL) CBC auto differential (03/29/2025 11:39 AM EDT) [facility] WBC 3.6(L) 4.8 - 10.8 K/mcL LAB HEMETOLOGY METHOD 03/29/2025 2:07 PM [facility] RBC 4.40 3.80 - 4.80 M/mcL LAB HEMETOLOGY METHOD 03/29/2025 2:07 PM [facility] Hemoglobin 10.9(L) 11.5 - 16.0 g/dL LAB HEMETOLOGY METHOD 03/29/2025 2:07 PM [facility] Hematocrit 35.4 35.0 - 47.0 % LAB HEMETOLOGY METHOD 03/29/2025 2:07 PM [facility] MCV 80.8 79.0 - 98.0 FL LAB HEMETOLOGY METHOD 03/29/2025 2:07 PM [facility] MCH 24.9(L) 27.0 - 32.0 pcg LAB HEMETOLOGY METHOD 03/29/2025 2:07 PM [facility] MCHC 30.8(L) 32.0 - 37.0 g/dL LAB HEMETOLOGY METHOD 03/29/2025 2:07 PM [facility] RDW 14.4 11.0 - 15.0 % LAB HEMETOLOGY METHOD 03/29/2025 2:07 PM [facility] Platelets 221 130 - 400 K/mcL LAB HEMETOLOGY METHOD 03/29/2025 2:07 PM [facility] MPV 11.8(H) 7.0 - 11.0 FL LAB HEMETOLOGY METHOD 03/29/2025 2:07 PM [facility] NRBC 0.0 <1.0 % LAB HEMETOLOGY METHOD 03/29/2025 2:07 PM [facility] NRBC Absolute 0.00 <0.10 K/mcL LAB HEMETOLOGY METHOD 03/29/2025 2:07 PM [facility] Neutrophils Relative 39.2 % LAB HEMETOLOGY METHOD 03/29/2025 2:07 PM [facility] Lymphocytes Relative 45.6 % LAB HEMETOLOGY METHOD 03/29/2025 2:07 PM [facility] Monocytes Relative 9.1 % LAB HEMETOLOGY METHOD 03/29/2025 2:07 PM [facility] Eosinophils Relative 5.2 % LAB HEMETOLOGY METHOD 03/29/2025 2:07 PM [facility] Basophils Relative 0.6 % LAB HEMETOLOGY METHOD 03/29/2025 2:07 PM [facility] Immature Granulocytes Relative 0.3 % LAB HEMETOLOGY METHOD 03/29/2025 2:07 PM [facility] Neutrophils Absolute 1.42(L) 1.50 - 7.00 K/mcL LAB HEMETOLOGY METHOD 03/29/2025 2:07 PM [facility] Lymphocytes Absolute 1.65 1.00 - 5.00 K/mcL LAB HEMETOLOGY METHOD 03/29/2025 2:07 PM [facility] Monocytes Absolute 0.33 0.20 - 1.00 K/mcL LAB HEMETOLOGY METHOD 03/29/2025 2:07 PM [facility] Eosinophils Absolute 0.19 0.00 - 0.50 K/mcL LAB HEMETOLOGY METHOD 03/29/2025 2:07 PM [facility] Basophils Absolute 0.02 0.00 - 0.20 K/mcL LAB HEMETOLOGY METHOD 03/29/2025 2:07 PM [facility] Immature Granulocytes Absolute 0.01 0.00 - 0.03 K/mcL LAB HEMETOLOGY METHOD 03/29/2025 2:07 PM EDT [facility] Blood Venous blood specimen / Unknown Venipuncture / Unknown 03/29/2025 11:39 AM EDT 03/29/2025 11:39 AM EDT Giselle PATTERSON LAB BLOOD ORDERABLES Final Resu lt [facility] [address] [place] [address], [place] [phone] * Iron and TIBC (03/29/2025 11:39 AM EDT) Iron 74 40 - 150 mcg/dL LAB CHEMISTRY METHOD 03/29/2025 3:09 PM EDT [facility] TIBC 376 250 - 450 mcg/dL LAB CHEMISTRY METHOD 03/29/2025 3:09 PM EDT [facility] Iron Saturation 20 15 - 50 % LAB CHEMISTRY METHOD 03/29/2025 3:09 PM EDT [facility] Blood Venous blood specimen / Unknown Venipuncture / Unknown 03/29/2025 11:39 AM EDT 03/29/2025 11:39 AM EDT Giselle PATTERSON LAB BLOOD ORDERABLES Final Resu lt [facility] [address] [place] [address], [place] [phone] * Hemoglobin A1c (03/29/2025 11:39 AM EDT) Hemoglobin A1C 5.0 <6.5 % LAB CHEMISTRY METHOD 03/29/2025 9:20 PM EDT [facility] Mean Bld Glu Estim. 97 mg/dL LAB CHEMISTRY METHOD 03/29/2025 9:20 PM EDT [facility] Blood Venous blood specimen / Unknown Venipuncture / Unknown 03/29/2025 11:39 AM EDT 03/29/2025 11:39 AM EDT Giselle PATTERSON LAB BLOOD ORDERABLES Final Resu lt Performing Organization Address [facility]/ZIP Co de Phone Number [facility] [address] [place] [address], [place] [phone] * (ABNORMAL) Folate (03/29/2025 11:39 AM EDT) [facility] Folate 19.2(H) 2.8 - 17.0 ng/ml LAB CHEMISTRY METHOD 03/29/2025 3:09 PM EDT [facility] Blood Venous blood specimen / Unknown Venipuncture / Unknown 03/29/2025 11:39 AM EDT 03/29/2025 11:39 AM EDT Giselle PATTERSON LAB BLOOD ORDERABLES Final Resu lt Performing Organization Address [facility]/ZIP Co de Phone Number [facility] [address] [place] [address], [place] [phone] * Ferritin (03/29/2025 11:39 AM EDT) [facility] Ferritin 87 8 - 252 ng/mL LAB CHEMISTRY METHOD 03/29/2025 3:09 PM EDT [facility] Blood Venous blood specimen / Unknown Venipuncture / Unknown 03/29/2025 11:39 AM EDT 03/29/2025 11:39 AM EDT Giselle PATTERSON LAB BLOOD ORDERABLES Final Resu lt Performing Organization Address [place] [facility]/ZIP Co de Phone Number [facility] [address] [place] [address], [place] [phone] * Vitamin B12 (03/29/2025 11:39 AM EDT) [facility] Vitamin B-12 583 250 - 900 pcg/mL LAB CHEMISTRY METHOD 03/29/2025 3:09 PM [facility] Blood Venous blood specimen / Unknown Venipuncture / Unknown 03/29/2025 11:39 AM EDT 03/29/2025 11:39 AM EDT Giselle PATTERSON LAB BLOOD ORDERABLES Final Resu lt [facility] [address] [place] [address], [place] [phone] * (ABNORMAL) Comprehensive metabolic panel (03/29/2025 11:39 AM EDT) [facility] Sodium 141 133 - 145 mmol/L LAB CHEMISTRY METHOD 03/29/2025 3:09 PM [facility] Potassium 3.9 3.5 - 5.5 mmol/L LAB CHEMISTRY METHOD 03/29/2025 3:09 PM [facility] Chloride 105 96 - 110 mmol/L LAB CHEMISTRY METHOD 03/29/2025 3:09 PM [facility] CO2 29 21 - 32 mmol/L LAB CHEMISTRY METHOD 03/29/2025 3:09 PM [facility] Anion Gap 7 3 - 11 LAB CHEMISTRY METHOD 03/29/2025 3:09 PM [facility] Glucose 101(H) 70 - 100 mg/dL LAB CHEMISTRY METHOD 03/29/2025 3:09 PM [facility] BUN 10 5 - 25 mg/dL LAB CHEMISTRY METHOD 03/29/2025 3:09 PM [facility] Creatinine 0.94 0.50 - 1.10 mg/dL LAB CHEMISTRY METHOD 03/29/2025 3:09 PM [facility] eGFR 70 >=60 mL/min/1. 73m2 LAB CHEMISTRY METHOD 03/29/2025 3:09 PM [facility] Comment:Calculation based on the Chronic Kidney Disease Epidemiology Collaboration (CKD-EPI) equation refit without adjustment for race. BUN/Creatinine Ratio 10.6 LAB CHEMISTRY METHOD 03/29/2025 3:09 PM [facility] Calcium 9.0 8.5 - 10.5 mg/dL LAB CHEMISTRY METHOD 03/29/2025 3:09 PM [facility] AST (SGOT) 20 10 - 42 unit/L LAB CHEMISTRY METHOD 03/29/2025 3:09 PM [facility] ALT (SGPT) 22 10 - 60 unit/L LAB CHEMISTRY METHOD 03/29/2025 3:09 PM [facility] Alkaline Phosphatase 69 42 - 121 unit/L LAB CHEMISTRY METHOD 03/29/2025 3:09 PM [facility] Total Protein 7.2 6.0 - 8.0 g/dL LAB CHEMISTRY METHOD 03/29/2025 3:09 PM [facility] Albumin 3.6 3.2 - 5.0 g/dL LAB CHEMISTRY METHOD 03/29/2025 3:09 PM [facility] Total Bilirubin 0.6 0.0 - 1.4 mg/dL LAB CHEMISTRY METHOD 03/29/2025 3:09 PM [facility] Blood Venous blood specimen / Unknown Venipuncture / Unknown 03/29/2025 11:39 AM EDT 03/29/2025 11:39 AM EDT us Giselle PATTERSON LAB BLOOD ORDERABLES Final Resu lt [facility] [address] [place] [address], [place] [phone] * Depression Screening (08/13/2024) [facility] Depression Screening Abstracted us Historical Provider HEALTH MAINTENANCE Final Result * Lipid panel (07/02/2024) LDL/HDL Ratio 2 0 - 4 Triglycerides 105 0 - 150 mg/dL Cholesterol 131 0 - 200 mg/dL HDL 79 >=40 mg/dL LDL Cholesterol 31 0 - 100 mg/dL Blood Venous blood specimen / Unknown Historical Provider LAB BLOOD ORDERABLES Jeaneth l Result * [...] interpreted with the aid of computer-aided detection. Comparison is made with 03/28/2022 and as far back as 03/27/2017. Breast parenchyma is composed of scattered fibroglandular densities. Stable bilateral nodularity. No new suspicious mass, architectural [...] No mammographic evidence of malignancy. BI-RADS 2-benign Alannah Ibarra CNM IMG XR PROCEDURES Final Result * Colonoscopy (07/03/2017) Colonoscopy No Interpretation , Abstracted Anatomical Region Laterality Modality Other Historical Provider HEALTH MAINTENANCE Final Result * HIV Screening (10/03/2016) HIV Screening Abstracted Historical Provider HEALTH MAINTENANCE Final Result * Hepatitis C Screening (10/03/2016) Hepatitis C Screening Abstracted Historical Provider HEALTH MAINTENANCE Final Result from Last 3 Months or Most Recently Relevant to Health Maintenance Insurance [facility] [employer] Advance Directives Documents on File Type Date Recorded Patient 

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
--- OUTSIDE RECORDS SUMMARY | 2025-04-27 12:07 | XMS_ITS | Clinical Summary ---
Author Organization [facility] Address [address] [place] [address] Care Team Providers Care Want Ad Supervisor Name Role Phone Unavailable Primary Care Provider [...]
== END 2025-04-27 12:30 | disposition home or self-care (01) ==
LOC: HO.HBS 10:55
PROVIDERS: PCP Internal Medicine; Visit Provider Physician Assistant Surgical
DX: E66.9 Obesity, unspecified (principal); Z68.33 Body mass index [BMI] 33.0-33.9, adult; Z90.3 Acquired absence of stomach [part of]; Z98.84 Bariatric surgery status
CPT/HCPCS: 99213; G2211

== ENCOUNTER 2025-04-27 10:54 | Outpatient (REF) | payer OTHER, SELFPAY ==
[2025-04-27 13:48] LABS: Alanine Aminotransferase 19 U/L (0-31); Albumin Level 4.1 g/dL (3.5-5.0); Alkaline Phosphatase 59 U/L (39-117); Anion Gap 10 (12-20); Aspartate Amino Transferase 23 U/L (5-31); Blood Urea Nitrogen 17 mg/dL (9-16); Calcium 9.0 mg/dL (8.4-10.2); Carbon Dioxide 28 mmol/L (22-29); Chloride 107 mmol/L (96-108); Estimated Glomerular Filt Rate > 60; Magnesium 1.8 mg/dL (1.6-2.6); Potassium 3.8 mmol/L (3.3-5.1); Sodium 141 mmol/L (135-145); Total Protein 7.1 g/dL (6.5-8.0)
[2025-04-27 14:20] LABS: Folate 9.6 ng/mL (> or = 4.0); Vitamin B12 550 pg/mL (200-900)
== END 2025-04-27 10:55 | disposition home or self-care (01) ==
LOC: HO.LAB 10:54
PROVIDERS: PCP Internal Medicine; Visit Provider Physician Assistant Surgical
DX: Z98.84 Bariatric surgery status (principal); E66.9 Obesity, unspecified
CPT/HCPCS: 36415; 80053; 82306; 82607; 82746; 83735; 84100; 84425; 84590; 84630; 99212

== ENCOUNTER 2025-07-28 10:25 | Outpatient (AMB) | payer OTHER, SELFPAY ==
--- NOTE | 2025-07-28 10:31 | MHC.NURWM ---
Intake VS Expanded 07/28/25 10:44 BP 170/82 H Blood Pressure Location Rt brachial Blood Pressure Position Sitting Pulse 58 Pulse Source Pulse Oximeter Temp 97.3 F Temperature Source Temporal Artery Scan Pulse Oximetry 100 Oxygen Delivery Method Room Air Height 5 ft 4 in Weight 184 lb BMI 31.6 Body Fat % 30.0 Body Fat Mass 55.2 Fat Free Mass 128.8 Visceral Fat Rating 8.0 Body Water % 49.6 Body Water Mass 91.2 Muscle Mass/Score 122.4 Basal Metabolic Rate/Score 1,712 Intake Visit Reasons: OV PO LSG 01/01/24 Allergies diclofenac Allergy (Severe, Verified 07/28/25 10:46) Hallucinations duloxetine (From CYMBALTA) Allergy (Severe, Verified 07/28/25 10:46) Hallucinations droperidol (DROPERIDOL) Allergy (Intermediate, Verified 07/28/25 10:46) dizzy Coding
[2025-07-28 10:44] VITALS: BP 170/82; PULSE 58; TEMP 36.3; O2SAT 100; BMI 31.6
[2025-07-28 10:47] VITALS: BMI 31.6
--- NOTE | 2025-07-28 10:47 | A.OFFVIS_ITS ---
VS Expanded 07/28/25 10:44 07/28/25 10:47 BP 170/82 H Blood Pressure Location Rt brachial Blood Pressure Position Sitting Pulse 58 Pulse Source Pulse Oximeter Temp 97.3 F Temperature Source Temporal Artery Scan Pulse Oximetry 100 Oxygen Delivery Method Room Air Height 5 ft 4 in Weight 184 lb BMI 31.6 31.6 Body Fat % 30.0 Body Fat Mass 55.2 Fat Free Mass 128.8 Visceral Fat Rating 8.0 Body Water % 49.6 Body Water Mass 91.2 Muscle Mass/Score 122.4 Basal Metabolic Rate/Score 1,712 Intake Visit Reasons: OV PO LSG 01/01/24 Allergies diclofenac Allergy (Severe, Verified 07/28/25 10:46) Hallucinations duloxetine (From CYMBALTA) Allergy (Severe, Verified 07/28/25 10:46) Hallucinations droperidol (DROPERIDOL) Allergy (Intermediate, Verified 07/28/25 10:46) dizzy Medication List - Last Reconciled 07/28/25 by LEONARDO Redding albuterol sulfate 90 mcg/actuation (Ventolin HFA) 2 puffs inhalation QID PRN amitriptyline 25 mg PO BEDTIME amlodipine 5 mg PO DAILY Held on 01/02/24. Instructions: Resume on 01/03/24. Check your blood pressure every morning as soon as you wake up and send it to Dr. Aden. Do no take the blood pressure medication if the blood pressure is below 120/70. Wait every day to hear back from Dr. Aden before you take the medication. cholecalciferol (vitamin D3) 50 mcg PO DAILY citalopram 20 mg PO DAILY clotrimazole 1% 1 appl topical BID cyclobenzaprine 10 mg PO BEDTIME docusate sodium 100 mg PO DAILY fluticasone propionate 110 mcg/actuation (Flovent HFA) 1 puff inhalation BID iron,carbonyl-vitamin C 65 mg iron- 125 mg (Vitron-C) 1 tab PO BEDTIME lisinopril-hydrochlorothiazide 20-12.5 mg 1 tab PO DAILY Held on 01/02/24. Instructions: Resume on 01/03/24. Check your blood pressure every morning as soon as you wake up and send it to Dr. Aden. Do no take the blood pressure medication if the blood pressure is below 120/70. Wait every day to hear back from Dr. Aden before you take the medicat ion. montelukast 10 mg PO DAILY fzdjvdgadhto-oem-svoi-FA-vit K 45 mg iron- 800 mcg-120 mcg (Bariatric Multivitamins) 1 cap PO .daily in evening pantoprazole 40 mg PO DAILY polyethylene glycol 3350 (Miralax) 17 grams PO DAILY sodium chloride 0.65% (Saline Mist) 1 spray intranasal DAILY PRN thiamine HCl (vitamin B1) 100 mg PO DAILY tolterodine ER 2 mg PO DAILY topiramate 50 mg PO BID trospium ER 60 mg PO DAILY [Vitamin A 1 cap PO DAILY] zinc gluconate 100 mg PO DAILY 60 days HPI Comments Details: This?is a?60?yo F who is s/p LSG 01/01/2024. Presents for 18mo post op visit. Weight loss of 10.2lb since last OV. At last visit had labs done. As she has continued to lose weight she has noticed increasing pain at umbilicus. She is unable to relate this to PO intake, movement. She reports cramping is better. Present meal plan includes: 2 shakes per day (1 scoop Body Fortress each, 30g each) plus one meal 6f/6f and can have 1-2 forks rice 1x/week. taking MVI, additional vits and iron- had to buy OTC Pt reports she changed her plan due to some nausea. She is taking 1 protein shake per day- Body Fortress (1 scoop = 30g). 2 eggs in AM, and there is disagreement on what she eats the rest of the day- her MANAGER NC states she eats rice. Pt claims small portions . I have it one time per week . Doesn't have much appetite so will only snack , not eat much. Exercise routine includes: videos at home when I don't have leg pain 3x/week Pt reports issues of excess skin of abdomen and arms/legs. Notices chafing of arms and legs from where skin rubs against the body during movement. Notes difficulty with movements like walking, bending/squatting as excess skin of the belly gets in the way and limits her mobility, feels very uncomfortable. Having worsening leg pain when she walks due to the heaviness of the excess skin of her thighs. The excess skin of the arms She has to wear special clothing, long sleeves and pants at basically all times to cover the areas and prevent skin issues. [facility] Medical History LUQ pain FH: gastric cancer Abnormal ECG Pre-op evaluation H. pylori infection Rectal bleeding Family history of gastric carcinoma Arthritis Hx of transfusion of packed red blood cells Anemia Vertigo GERD (gastroesophageal reflux disease) Stress incontinence Pre-diabetes Migraine Elevated cholesterol Hiatal hernia Asthma Fibromyalgia Sleep apnea Depression HTN (hypertension) Surgical History S/P laparoscopic sleeve gastrectomy Hx of colonoscopy History of esophagogastroduodenoscopy (EGD) Hx of hernia repair Hx of hysterectomy Hx of cholecystectomy Family History Mother Hypertension Arthritis Father No problems noted. Son No problems noted. Social History Household Members: None Housing: House Are you a primary zoo caretaker to a significant other at home: No Do you presently have visiting nurse or other home services: Yes (MANAGER NC) Alcohol intake: never Patient Tobacco Use Status: Never used Tobacco service: No Physical Exam Vital Signs: Last Vital Signs Temp 97.3 F 07/28/25 10:44 Pulse 58 07/28/25 10:44 BP 170/82 H 07/28/25 10:44 Pulse Ox 100 07/28/25 10:44 Oxygen Delivery Method Room Air 07/28/25 10:44 BMI result Body Mass Index 31.6 Const General: cooperative, comfortable and no acute distress Orientation/consciousness: patient oriented x3 GI Other: soft, nondistended, incisions well healed, tenderness at umbilicus, it is hard to feel fascial borders due to degree of excess skin and obesity making exam difficult Neuro General: patient oriented x3 Assessment & Plan Assessment & Plan (1) S/P laparoscopic sleeve gastrectomy: Code(s): Z98.84 - Bariatric surgery status Category: Surgical (2) Obesity: Code(s): E66.9 - Obesity, unspecified Category: Medical (3) Excess skin: Code(s): L98.7 - Excessive and redundant skin and subcutaneous tissue Category: Medical Plan Patient doing better with weight loss with meal plan change. CT scan to evaluate umbilical pain, rule out hernia. She requests a referral to [facility] as her family member had surgery here and had a good experience. She spent a portion of the visit today describing her disappointment in her body changes after weight loss. Previous labs reviewed, pt reports she is taking OTC supplements as insurance did not cover rx. RTC December. Orders: Orders CT abdomen pelvis w IV con Today R10.33 - Periumbilical pain
--- OUTSIDE RECORDS SUMMARY | 2025-07-28 11:50 | XMS_ITS ---
Author Name [facility] Organization Unknown Care Team Organization Name Specialty Phone Email Start Date End Da te [facility] Marge Rosenthal Primary Care 01/02/2023 06/15/2024 [facility] ALBERTINA GLOVER Primary Care 09/04/2022
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
--- OUTSIDE RECORDS SUMMARY | 2025-07-28 11:50 | XMS_ITS | Clinical Summary ---
Author Organization [facility] Address [address] [place] [address] Care Team Providers Care Hand Hose Cutter Name Role Phone Unavailable Primary Care Provider [...]
== END 2025-07-28 11:23 | disposition home or self-care (01) ==
LOC: HO.HBS 10:25
PROVIDERS: PCP Internal Medicine; Visit Provider Physician Assistant Surgical
DX: E66.9 Obesity, unspecified (principal); Z68.31 Body mass index [BMI] 31.0-31.9, adult; L98.7 Excessive and redundant skin and subcutaneous tissue; Z90.3 Acquired absence of stomach [part of]; Z98.84 Bariatric surgery status
CPT/HCPCS: 99213

== ENCOUNTER → 2025-07-28 10:25 | Outpatient (BNVA) | payer OTHER, SELFPAY | PROVIDERS: PCP Internal Medicine; Visit Provider Physician Assistant Surgical | DX: E66.9 Obesity, unspecified (principal); R10.33 Periumbilical pain; L98.7 Excessive and redundant skin and subcutaneous tissue; Z68.31 Body mass index [BMI] 31.0-31.9, adult; Z90.3 Acquired absence of stomach [part of] | CPT/HCPCS: 99212 ==

== ENCOUNTER 2025-10-20 12:33 | Outpatient (REF) | payer OTHER, SELFPAY ==
--- NOTE | ~2025-10-20 | CT_ITS ---
EXAMINATION: CT ABDOMEN PELVIS WITH IV CONTRAST HISTORY: R10.33 - Periumbilical pain COMPARISON: Comparison is made with the prior examination dated 07/18/2023. TECHNIQUE: CT scan of the abdomen and pelvis was performed following administration of 85 mL Omnipaque 350 using standard departmental protocol. Coronal and sagittal reformatted images were generated and reviewed. Oral contrast material was not administered at the request of the referring physician. This CT exam was performed with one or more of the following dose reduction techniques: automated exposure control, adjustment of the mA and/or kV according to patient size, use of iterative reconstruction technique. DLP: 512 mGy-cm FINDINGS: LOWER CHEST: The visualized lung bases are clear. There is no pleural effusion. CARDIOVASCULATURE: The heart is enlarged. There is no pericardial effusion. LIVER: The liver is normal in size and contour. No liver mass is identified. The hepatic and portal veins are patent. GALLBLADDER / BILE DUCTS: The gallbladder is surgically absent. There is no intra or extrahepatic biliary ductal dilatation. SPLEEN: The spleen is normal in size. No focal splenic lesion is identified. PANCREAS: The pancreas is unremarkable in appearance. ADRENAL GLANDS: Within normal limits. KIDNEYS/RETROPERITONEUM: No renal calculi are identified. There is no hydronephrosis. No renal masses are identified. LYMPH NODES: No abdominal or pelvic lymphadenopathy. VASCULATURE: The abdominal aorta is normal in caliber. MESENTERY/PERITONEUM: No free fluid. No masses. There is no free intraperitoneal gas. STOMACH: There are postsurgical changes involving the stomach. SMALL BOWEL: The small bowel is normal in caliber. COLON: The colon is unremarkable. APPENDIX: Normal. URINARY BLADDER/PELVIC ORGANS: The urinary bladder is unremarkable. The patient is status post hysterectomy. BONES / SOFT TISSUES: An abdominal wall mesh is seen in place. No abdominal wall hernia is seen. CT/CT abdomen pelvis w IV con IMPRESSION: No abdominal wall hernia is identified. Postsurgical changes as described. Electronically signed by: Vadim Golden MD 10/20/2025 03:07 PM [facility]
--- OUTSIDE RECORDS SUMMARY | 2025-10-20 12:37 | XMS_ITS | Encounter Summary ---
Author Organization [facility] Address [address] [place] [address] Care Team Providers Care Commodity Supervisor Name Role Phone Marge Pham MD Primary Care Prov ider Reason for Visit * Reason Onset Date Comments Fitting for DME 10/14/2025 Underwear Encounter Details Date Type Department Care Team (Late st Contact Info) Description 10/14/2025 Telephone Adult Medicine [address] [address] Marge Pham MD [address] [place] [address] Social History Tobacco Use Types Packs/Day Years Used Date Smoking Tobacco: Never Smokeless Tobacco: Never Alcohol Use Standard Drinks/Week Comments No 0 [...] for your loved ones. For example, child support specialist or elderly care for an older adult? [...] on file Sexual Orientation Not on file documented as of this encounter Progress Notes * Parish Guzman - 10/14/2025 8:21 AM EST DWO for underwear received via fax from [facility] in [facility] for completion. documented in this encounter Plan of Treatment Not on file documented as of this encounter Goals Goal Patient Goal Type Associated Problems Recent Progress Patient-Stated? Author STG's 6 visits General Yes Doni Mckinley PT Note: Pt will demonstrate a 10 degree improvement in cervical extension and cervical rotations for ADL's and IADL's. Pt will demonstrate a 1/2 improvement in cervical plane and B scap stabilizer strength to increase tolerance to daily activities. Pt will demonstrate DNFET of 20 seconds or better. Pt is Independent and compliant with initial HEP. LTG's 12 visits General Yes Doni Mckinley PT Note: Pt will demonstrate a 15 degree improvement in cervical extension and cervical rotations for ADL's and IADL's. Pt will demonstrate a 1 improvement in cervical plane and B scap stabilizer strength to increase tolerance to daily activities. Pt will demonstrate DNFET of 28 seconds or better. Pt will be Independent and compliant with final HEP. documented as of this encounter Visit Diagnoses Not on filedocumented in this encounter Care Teams Commodity Supervisor Relationship Specialty Start Date End Date Marge Pham MD [address] [place] [phone] PCP - General Internal Medicine 05/28/22 documented as of this encounter
--- OUTSIDE RECORDS SUMMARY | 2025-10-20 12:37 | XMS_ITS | Clinical Summary ---
Author Organization [facility] Address [address] [place] [address] Phone Care Team Providers Care Employment Evaluator/Case Manager Name Role Phone Marge Pham MD Primary [...] chloride (AYR) 0.65 % nasal drops 1 [place] by Nasal route as needed for Congestion. [...] NEEDED FOR MUSCLE SPASMS 30 tablet Active hydrOXYzine HCL (ATARAX) 25 mg tablet Take 1 tablet (25 mg total) by mouth 2 (two) times a day if needed for anxiety. 20 each Active pantoprazole (PROTONIX) 40 mg EC tablet TOME 1 TABLETA POR VIA ORAL TODOS [place] 90 tablet 1 025 Active amitriptyline (ELAVIL) 25 mg tablet TAKE 1 TABLET BY MOUTH AT BEDTIME 28 tablet 4 025 Active amLODIPine (NORVASC) 5 mg tablet TOME 1 TABLETA POR VIA ORAL TODOS [place] 90 tablet 1 025 Active montelukast (SINGULAIR) 10 mg tablet Take 1 tablet (10 mg total) by mouth at bedtime. 90 tablet 025 Active lisinopril-hydro CHLOROthiazide (PRINZIDE,ZESTOR ETIC) 20-12.5 mg per tablet TAKE 1 TABLET BY MOUTH DAILY 28 tablet 1 025 Active lisinopril-hydro CHLOROthiazide (PRINZIDE,ZESTOR ETIC) 20-12.5 mg per tablet TAKE 1 TABLET BY MOUTH DAILY 28 tablet 1 025 2024 Discontinued Active [...] 03/07/2016 YOJANA on CPAP 03/07/2016 Overview (09/04/2024): [facility] split-night polysomnogram 05/28/2012. Weight 283; BMI 49. 17 hypopneas apneas indicating an AHI of 9; REM AHI 44. Average oxygen saturation 97% with oxygen beka 91%. CPAP applied from 5-8. With CPAP at 8 AHI 0.3 and lowest oxygen saturation 95%. CPAP at 8 was recommended. [facility] Home Sleep Apnea Test: Date 11/15/2021; [...] Resolved Date Morbid obesity with BMI of 50.0-59.9, adult 09/04/2024 03/29/2025 Encounters Date Type Department Care Team Description 10/14/2025 Telephone Adult Medicine [address] [address] Marge Pham MD from Last 3 Months Immunizations Immunization Administration Dates Next Due Influenza Quadravalent, MDCK , 0.5ml, preservative free (Flucelvax) 6mo and older 10/31/2022,12/07/2021 Influenza trivalent, with pr eservative (Fluzone; Afluria) 6mo and older 08/26/2014,08/11/2012 Pneumococcal polysaccharide 23 valent (Pneumovax 23) 2yo and older 01/04/2017 Tdap Tetanus diptheria acell ular pertussis (Boostrix; Adacel) 7yo and older 01/04/2017,05/24/2014 Surgical History Surgery Date Site/Laterality Comments HYSTERECTOMY 1998 PROCEDURE: HISTORICAL HYSTERECTOMY; COMMENT: still have ovaries CHOLECYSTECTOMY PROCEDURE: HISTORICAL CHOLECYSTECTOMY HERNIA REPAIR 12/04/2016 PROCEDURE: HISTORICAL HERNIA REPAIR/TRISTEN BREAST LUMPECTOMY 1989 Right PROCEDURE: HISTORICAL BREAST LUMPECTOMY; COMMENT: b9 COLONOSCOPY 07/03/2017 PROCEDURE: HISTORICAL COLONOSCOPY; COMMENT: NORMAL CHOLECYSTECTOMY PROCEDURE: CT LAPAROSCOPY SURG CHOLECYSTECTOMY BARIATRIC SURGERY 01/01/2024 PROCEDURE: CT LAPS GSTRC RSTRICTIV PX LONGITUDINAL GASTRECTOMY; COMMENT: [facility] Medical History Medical History Date Comments Depression [...] for your loved ones. For example, child life specialist or elderly care for an older [...] on file Sexual Orientation Not on file Last Filed Vital Signs Vital Sign Reading [...] 06/15/2025 1:38 PM EDT Plan of Treatment Health Maintenance Due Date Last Done Comments Hepatitis B Vaccines (1 of 3 - 19+ 3-dose series) 1986 RSV Immunization Adult Patients (1 - Risk 50-74 years 1-dose series) 2017 Zoster Vaccines (1 of 2) 2017 Pneumococcal Vaccine: 50+ Years (2 of 2 - PCV) 01/04/2018 01/04/2017 Breast Cancer Screening 04/10/2024 04/10/20 23, 04/18/2022, 03/28/2022, Additional history exists Depression Screening 10/28/2024 08/13/2024 Influenza Vaccine (#1) 2025 3, 12/07/2021, 08/26/2014, Additional history exists Social Influencers [...] Procedure Name Priority Date/Time Associated Diagnosis Comments COMPREHENSIVE METABOLIC PANEL STAT 05/16/2025 4:50 AM EDT DEPRESSION SCREENING Routine 08/13/2024 LIPID PANEL Routine 07/02/2024 SCREENING MAMMOGRAPHY BI 2-VIEW BREAST INC CAD Routine 04/10/2023 9:49 AM EDT Encounter for screening mammogram for malignant neoplasm of breast COLONOSCOPY Routine 07/03/2017 HEPATITIS C SCREENING Routine 10/03/2016 HIV SCREENING Routine 10/03/2016 from Last 3 Months or Most Recently Relevant to Health Maintenance Results * Comprehensive metabolic panel (05/16/2025 4:50 AM EDT) Sodium 142 133 - 145 mmol/L LAB CHEMISTRY METHOD 05/16/2025 5:52 AM [facility] Potassium 3.8 3.5 - 5.5 mmol/L LAB CHEMISTRY METHOD 05/16/2025 5:52 AM [facility] Chloride 107 96 - 110 mmol/L LAB CHEMISTRY METHOD 05/16/2025 5:52 AM [facility] CO2 30 21 - 32 mmol/L LAB CHEMISTRY METHOD 05/16/2025 5:52 AM [facility] Anion Gap 5 3 - 11 LAB CHEMISTRY METHOD 05/16/2025 5:52 AM [facility] Glucose 83 70 - 100 mg/dL LAB CHEMISTRY METHOD 05/16/2025 5:52 AM [facility] BUN 15 5 - 25 mg/dL LAB CHEMISTRY METHOD 05/16/2025 5:52 AM [facility] Creatinine 0.91 0.50 - 1.10 mg/dL LAB CHEMISTRY METHOD 05/16/2025 5:52 AM [facility] eGFR 73 >=60 mL/min/1. 73m2 LAB CHEMISTRY METHOD 05/16/2025 5:52 AM [facility] Comment:Calculation based on the Chronic Kidney Disease Epidemiology Collaboration (CKD-EPI) equation refit without adjustment for race. BUN/Creatinine Ratio 16.5 LAB CHEMISTRY METHOD 05/16/2025 5:52 AM [facility] Calcium 9.4 8.5 - 10.5 mg/dL LAB CHEMISTRY METHOD 05/16/2025 5:52 AM [facility] AST (SGOT) 20 10 - 42 unit/L LAB CHEMISTRY METHOD 05/16/2025 5:52 AM [facility] ALT (SGPT) 20 10 - 60 unit/L LAB CHEMISTRY METHOD 05/16/2025 5:52 AM [facility] Alkaline Phosphatase 64 42 - 121 unit/L LAB CHEMISTRY METHOD 05/16/2025 5:52 AM [facility] Total Protein 6.9 6.0 - 8.0 g/dL LAB CHEMISTRY METHOD 05/16/2025 5:52 AM [facility] Albumin 3.7 3.2 - 5.0 g/dL LAB CHEMISTRY METHOD 05/16/2025 5:52 AM [facility] Total Bilirubin 0.4 0.0 - 1.4 mg/dL LAB CHEMISTRY METHOD 05/16/2025 5:52 AM [facility] Blood Venous blood specimen / Unknown Venipuncture / Unknown 05/16/2025 4:50 AM EDT 05/16/2025 5:24 AM EDT us Shweta Gates MD LAB BLOOD ORDERABLES Final Res ult [facility] [address] [place] [address], [place] [phone] * Depression Screening (08/13/2024) Pathologist [facility] Depression Screening Abstracted Historical Provider HEALTH MAINTENANCE [...] Most Recently Relevant to Health Maintenance Insurance [facility] [employer] Advance Directives Documents on File Type Date Recorded 

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
--- OUTSIDE RECORDS SUMMARY | 2025-10-20 12:37 | XMS_ITS | Clinical Summary ---
Author Organization [facility] Prior to 03/27/25 Address [address] [place] [address] Care Team Providers Care Fleet Driver Name Role Phone Unavailable Primary Care Provider [...]
[2025-10-20] MEDS: iohexoL 350 MG/ML 100 ML INFUS..BTL IV (14:25)
[2025-10-20 15:21] LABS: Creatinine POC 0.8 mg/dL (0.5-1.4); GFR POC > 60
== END 2025-10-20 12:34 | disposition home or self-care (01) ==
LOC: HO.CT 12:33
PROVIDERS: PCP Internal Medicine; Visit Provider Physician Assistant Surgical
DX: R10.33 Periumbilical pain (principal)
CPT/HCPCS: 74177; 82565; Q9967

== ENCOUNTER → 2025-10-20 12:36 | Outpatient (BNV) | payer OTHER, SELFPAY | PROVIDERS: PCP Internal Medicine; Visit Provider Radiology Diagnostic Radiology | DX: R10.33 Periumbilical pain (principal) | CPT/HCPCS: 74177 ==